=== PATIENT | female | born 2005 | race Caucasian/White ===

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

== ENCOUNTER 2024-01-12 09:26 | Emergency (ER) | payer OTHER, SELFPAY ==
--- NOTE | 2024-01-12 10:12 | ED.GENADULT ---
HPI - General Adult General Chief complaint: Unspecified Stated complaint: Blood in stool Time Seen by Provider: 01/12/24 10:12 Source: patient, RN notes reviewed and old records reviewed Mode of arrival: ambulatory Limitations: no limitations History of Present Illness HPI narrative: 18-year-old female with negative medical history to [facility] with complaint of blood in stool. Patient reports bilateral lower back pain yesterday. Patient reports that pain does not feel muscular, states that pain feels deeper. Patient treated pain with ibuprofen with some improvement. Patient reports mild nausea without vomiting. Patient able to tolerate fluids by mouth. last menstrual period December 15. Patient states she is on an IUD. Patient resting comfortably in exam room in no acute distress. Respirations even and nonlabored. Related Data Allergies Allergy/AdvReac Type Severity Reaction Status Date / Time amitriptyline Allergy Swelling Verified 12/28/23 13:33 of the Eye Review of Systems Review of Systems: All systems reviewed & are unremarkable except as noted in HPI and below Constitutional: Constitutional: Reports no additional constitutional complaints Eyes: Eyes: Reports no additional eye complaints ENT: Reports system reviewed and no additional complaints, except as documented Cardiovascular: Cardiovascular: Reports no additional cardiovascular complaints, Denies chest pain and Denies dyspnea Respiratory: Respiratory: Reports no additional respiratory complaints, Denies cough and Denies dyspnea Gastrointestinal: Gastrointestinal: Reports hematochezia ( Scant) and Reports nausea Genitourinary: Genitourinary: Reports flank pain Musculoskeletal: Musculoskeletal: Reports as per HPI and Reports back pain Neurologic: Reports system reviewed and no additional complaints, except as documented Psychiatric: Psychiatric: Reports no additional psychiatric complaints [facility] Past Medical History Medical History Abdominal pain Anxiety disorder Vaginal discharge Surgical History Surgical History No pertinent past surgical history Family History Family History Mother Depression Anxiety Sibling Depression Anxiety Sibling Anxiety Depression Asthma Grandparent Anxiety Depression Hypertension Other Attention deficit hyperactivity disorder Social History Social History Smoking status: Never smoker Alcohol intake: never Substance use: never Substance use type: does not use Do You Feel Safe in your Home?: Yes Lack of Transportation: No Lack of Food: Never True Current Housing: I Have Housing Concerned About Future Housing: No Difficulty Paying Gas/Electric Bills: No Difficulty Paying for Meds: No Currently Unemployed: No Education: High School Diploma/GED Difficulty w/ Childcare or Family Care: No Living arrangements: with family Additional living arrangements comments: foster parents Occupation/Education: student 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 There is no relevant family history pertinent to the patient complaint. Exam Const: General: cooperative, healthy appearing, comfortable, no acute distress, alert and well nourished Nutritional Appearance: well nourished Orientation/consciousness: patient oriented x3 Limitations: no limitations HENMT: Head: normal to inspection Ears: external ears normal Face/Nose/Sinus: Normal external nose present, Normal nares present, normal facial exam, No erythema and No edema Face and sinus: normal facial exam, no erythema and no edema Mouth: Yes Normal oral and palatal mucosa present Eyes: General: appearance normal, both eyes and all related structures Neck: Neck: normal visual inspection, full ROM and no meningeal signs Chest: Chest palpation & inspection: normal inspection of the chest Resp: Effort & Inspection: normal respiratory effort and able to speak in complete sentences Auscultation: clear to auscultation bilaterally Cardio: Jugular venous distension: no JVD Rate: regular rate Rhythm: regular rhythm : General: Yes CVA tenderness bilateral Back/Spine/Pelvis: Cervical Spine: cervical ROM normal Skin: General skin exam: normal color, no rashes or lesions noted and turgor normal Neuro: General: patient oriented x3, gait normal, moves all extremities and no meningeal signs Speech: normal speech Gait exam (Neuro): Normal gait present Extrem: General: normal to inspection, full ROM and capillary refill normal Psych: Appearance: grossly normal and well kempt Course Course Emergency Course: Some parts of this dictation were generated by voice recognition software and may contain typographical and/or grammatical inaccuracies. Level of Care: Express Care Visit Vital Signs Vital signs: Vital Signs Temperature 37.0 C 10/24/24 10:20 Pulse Rate 102 H 01/12/24 10:20 Respiratory Rate 20 01/12/24 10:20 Blood Pressure 122/80 01/12/24 10:20 Pulse Oximetry 100 01/12/24 10:20 Oxygen Delivery Room Air 01/12/24 10:20 Temperature 37.0 C 01/12/24 10:20 Pulse Rate 100 01/12/24 10:27 Respiratory Rate 20 01/12/24 10:20 Blood Pressure 120/80 01/12/24 10:27 Pulse Oximetry 100 01/12/24 10:20 Oxygen Delivery Room Air 01/12/24 10:20 reviewed Transfer Transfered to: [place] Transportation: Other ( private vehicle) Transfer rationale: higher level of care Accepting physician: Dr. Cooley Medical Decision Making [facility] Narrative Medical decision making narrative: 18-year-old female with negative medical history to [facility] with complaint of blood in stool. Patient reports bilateral lower back pain yesterday. Patient reports that pain does not feel muscular, states that pain feels deeper. Patient treated pain with ibuprofen with some improvement. Patient reports mild nausea without vomiting. Patient able to tolerate fluids by mouth. last menstrual period December 15. Patient states she is on an IUD. Patient resting comfortably in exam room in no acute distress. Respirations even and nonlabored. Patient is sitting comfortably in exam room nontoxic in appearance. Patient appropriate for transfer to [facility] Transfer instructions reviewed with patient, including strict orders to report directly to the emergency department. Report called to Dr. Cooley. Patient offered EMS transport. Patient declined and prefers private vehicle. Patient verbalized understanding. Some parts of this dictation were generated by voice recognition software and may contain typographical and/or grammatical inaccuracies. Differential Diagnosis Differential Diagnosis: flank pain, back pain, hematuria, nausea, urinary tract infection, kidney stone Vital Signs Vital Signs: Vital Signs Temperature 37.0 C 01/12/24 10:20 Pulse Rate 102 H 01/12/24 10:20 Respiratory Rate 20 01/12/24 10:20 Blood Pressure 122/80 01/12/24 10:20 Pulse Oximetry 100 01/12/24 10:20 Oxygen Delivery Room Air 01/12/24 10:20 Temperature 37.0 C 01/12/24 10:20 Pulse Rate 100 01/12/24 10:27 Respiratory Rate 20 01/12/24 10:20 Blood Pressure 120/80 01/12/24 10:27 Pulse Oximetry 100 01/12/24 10:20 Oxygen Delivery Room Air 01/12/24 10:20 Lab Data Labs: Lab Results 01/12/24 Range/Units 10:39 POC Urine Color Light/pale POC Urine Clarity Clear POC Urine pH 6.0 POC Ur Specif [place] 1.030 POC Urine Protein Negative (Negative) POC Ur Glucose (UA) Negative (Negative) POC Urine Ketones Negative (Negative) POC Urine Blood Trace (Negative) POC Urine Nitrite Negative (Negative) POC Urine Bilirubin Negative (Negative) POC Urine Urobilinogen 0.2 POC U Leukocyte Esteras Negative (Negative) Discharge Plan Discharge Clinical Impression: Bilateral flank pain, Nausea, Hematuria Patient Disposition: Acute Care Hospital Condition: Stable Prescriptions: No Action sertraline [Zoloft] 50 mg tablet 50 mg PO DAILY Qty: 30 0RF propranolol 10 mg tablet 10 mg PO QID PRN (Reason: anxiety) Qty: 60 0RF Rx Instructions: administer 30 to 60 minutes prior to anxiety-provoking situation Follow-up/Referrals: PHYSICIAN,SEC REPORTING CONSULTANT [Primary Care Provider] -
[2024-01-12 10:20] VITALS: BP 122/80; PULSE 102; RESP 20; TEMP 37; O2SAT 100
[2024-01-12 10:27] VITALS: BP 120/80; PULSE 100
--- NOTE | 2024-01-12 10:29 | PC.NURSE ---
supine 120/80-100 sitting 122/80-102 standing 127/80-111-
[2024-01-12 10:42] LABS: EDUAAPPEAR Clear; EDUABILI Negative (Negative); EDUABLOOD Trace (Negative); EDUACOLOR1 Light/Pale; EDUAGLUCOSE Negative (Negative); EDUAKETONE Negative (Negative); EDUALEUKO Negative (Negative); EDUANITRATE Negative (Negative); EDUAPROTEIN Negative (Negative); EDUAUROBILI 0.2
== END 2024-01-12 10:55 | disposition short-term general hospital (02) ==
PROVIDERS: Emergency Provider Nurse Practitioner Family
DX: R10.9 Unspecified abdominal pain (principal); R11.0 Nausea; R51.9 Headache, unspecified
CPT/HCPCS: 81003; 99212; G0463

== ENCOUNTER 2024-01-12 11:49 | Emergency (ER) | payer OTHER, SELFPAY ==
--- NOTE | ~2024-01-12 | CT_ITS ---
CT abdomen pelvis w con Ordering provider: Francine Reyes MD History: 18 years Female with . bilateral flank pain . Comparison: May 02, 2023 Technique: CT abdomen and pelvis with IV and without oral contrast. Automated exposure control and it erative reconstruction technique were employed. The dose-length product was 863.69 mGy-cm. 100 mL Omn ipaque 350 was given IV. Findings: VISUALIZED LOWER CHEST: Normal. UPPER ABDOMINAL ORGANS: Liver: Normal. Gallbladder: Normal. Spleen: Normal. Stomach/duodenum: Normal. Pancreas: Normal. Adrenals: Normal. Kidneys: Normal. PELVIC ORGANS: The bladder shows slightly thickened wall. IUD is seen in the uterus. BOWEL AND MESENTERY: Colon: No evidence of diverticulitis. Normal appendix. Small Bowel: Normal. No obstruction. Peritoneum/mesentery: No free air or free fluid. No mesenteric lymphadenopathy. Small mesenteric lymp h nodes. RETROPERITONEUM: Normal aorta. No retroperitoneal lymphadenopathy. MUSCULOSKELETAL: Superficial soft tissues: The superficial soft tissues are normal. Bones: Normal spine. IMPRESSION: 1. No evidence of appendicitis, diverticulitis or intestinal obstruction. No definite renal stones o r hydronephrotic changes seen. Reviewed, dictated and finalized at location A. IMPRESSION: 1. No evidence of appendicitis, diverticulitis or intestinal obstruction. No d efinite renal stones or hydronephrotic changes seen.
[2024-01-12 11:55] VITALS: BP 119/77; PULSE 95; RESP 15; TEMP 36.6; O2SAT 100
--- NOTE | 2024-01-12 12:19 | ED.FEMALEGU ---
HPI - Female Genitourinary General Chief complaint: Urogenital-Female Stated complaint: bilateral flank pain from urgent care Time Seen by Provider: 01/12/24 12:10 Source: patient Mode of arrival: ambulatory Limitations: no limitations History of Present Illness HPI Narrative: patient developed left flank pain yesterday, aching, worse with certain movement and position, she denies any fever, chills, nausea, vomiting, urinary symptoms, vaginal bleeding or discharge. Patient denies any recent new physical activities Related Data Allergies Allergy/AdvReac Type Severity Reaction Status Date / Time amitriptyline Allergy Swelling Verified 01/12/24 11:50 of the Eye Review of Systems Review of Systems: All systems reviewed & are unremarkable except as noted in HPI and below PMFSH Past Medical History Medical History Abdominal pain Anxiety disorder Vaginal discharge Surgical History Surgical History No pertinent past surgical history Family History Family History Mother Depression Anxiety Sibling Depression Anxiety Sibling Anxiety Depression Asthma Grandparent Anxiety Depression Hypertension Other Attention deficit hyperactivity disorder Social History Social History Smoking status: Never smoker Alcohol intake: never Substance use: never Substance use type: does not use Do You Feel Safe in your Home?: Yes Lack of Transportation: No Lack of Food: Never True Current Housing: I Have Housing Concerned About Future Housing: No Difficulty Paying Gas/Electric Bills: No Difficulty Paying for Meds: No Currently Unemployed: No Education: High School Diploma/GED Difficulty w/ Childcare or Family Care: No Living arrangements: with family Additional living arrangements comments: foster parents Occupation/Education: student 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 Gender identity (if verbalized by the patient): Female Sexual Orientation (if Verbalized by the Patient): Bisexual Agree to blood products: Yes Exam Narrative: General appearance: Well-developed, well-nourished Skin: Normal color Head: Normocephalic, nontraumatic Eyes: Clear conjunctiva ENT: Oropharynx normal, ears normal, nose normal Neck: Supple, nontender Chest and respiratory: Airway patent, no respiratory distress, no accessory muscle use Heart: Regular rate/rhythm Abdomen: Soft, mild tenderness left flank area, no bruises, no swelling or rash, no organomegaly, quiet bowel sounds Vascular: Normal peripheral pulses, normal capillary refill. Musculoskeletal: Normal range of motion, nontender back Neurologic: Alert and oriented ?3, UNDERWRITING ACCOUNT REPRESENTATIVE is normal as tested, no gross motor deficit Course Vital Signs Vital signs: Vital Signs Temperature 36.6 C 01/12/24 11:55 Pulse Rate 95 01/12/24 11:55 Respiratory Rate 15 01/12/24 11:55 Blood Pressure 119/77 01/12/24 11:55 Pulse Oximetry 100 01/12/24 11:55 Oxygen Delivery Room Air 01/12/24 11:55 Temperature 36.6 C 01/12/24 11:55 Pulse Rate 88 01/12/24 14:03 Respiratory Rate 18 01/12/24 14:03 Blood Pressure 119/71 01/12/24 14:03 Pulse Oximetry 100 01/12/24 14:03 Oxygen Delivery Room Air 01/12/24 11:55 MDM - Female Genitourinary MDM Narrative Medical decision making narrative: patient came to the ED with left flank pain, nontraumatic Vital signs are stable Physical examination showed mild to moderate tenderness left flank area without rash or bruises or swelling Differential diagnosis muscular pain, pyelonephritis, kidney stone, constipation, colitis, splenic infarction or kidney infarction Blood workup today showed no acute abnormalities Urinalysis showed no evidence of infection CT abdomen and pelvis with IV contrast showed no acute abnormalities. Muscle pain is my concern The pt was discharged to home.the pt,s condition upon discharge was fair,education was provided to the pt in reference to the final impression,discharge study results,treatment,prognosis and need for follow up . Differential Diagnosis Differential diagnosis: Likely other ( as above) Medical Records Attestation: I reviewed the patient's medical records. Lab Data Attestation: I reviewed the patient's lab results. 01/12/24 12:22 01/12/24 12:22 Labs: Lab Results 01/12/24 01/12/24 Range/Units 12:18 12:22 WBC 6.5 (4.5-10.0) K/mm3 RBC 4.62 (4.2-5.4) M/mm3 Hgb 13.7 (12.0-15.0) g/dL Hct 41.0 (37.0-47.0) % MCV 88.7 (80-100) fl MCH 29.7 (26-34) pg MCHC 33.4 (32-36) g/dl RDW 13.3 (11.5-14.5) % Plt Count 154 (150-375) k/mm3 MPV 10.4 (7.4-10.4) fl Immature Gran % (Auto) 0.3 (0-0.5) % Neut % (Auto) 63.8 (45.5-73.1) % Lymph % (Auto) 27.6 (18.3-44.2) % [place] % (Auto) 6.6 (2.6-8.5) % Eos % (Auto) 1.2 (0-4.4) % Baso % (Auto) 0.5 (0.2-1.2) % Lymph # (Auto) 1.80 (0.9-3.2) K/mm3 [place] # (Auto) 0.4 (0.1-0.6) K/mm3 Eos # (Auto) 0.1 (0-0.3) K/mm3 Baso # (Auto) 0.0 (0.0-0.1) K/mm3 Abs Immat Gran (auto) 0.02 (0.00-0.031) K/mm3 Absolute Neuts (auto) 4.2 (1.3-6.7) K/mm3 Absolute Nucleated RBC 0.000 (0.0-0.012) K/mm3 Nucleated RBC % 0.0 (0.0-0.2) % Sodium 138 (134-143) mmol/L Potassium 3.6 (3.4-5.0) mmol/L Chloride 105 (98-107) mmol/L Carbon Dioxide 25 (22-30) mmol/L Anion Gap 8 (4-12) mmol/L BUN 8 (8-21) mg/dL Creatinine 0.60 L (0.7-1.0) mg/dL Estim Creat Clear Calc 159 ml/min Estimated GFR > 60 (59 - ) Glucose 95 (65-110) mg/dL Calcium 9.0 (8.9-10.7) mg/dL Total Bilirubin 0.4 (0.2-1.3) mg/dL AST 24 (14-36) U/L ALT 24 (6-35) U/L Alkaline Phosphatase 80 (45-116) U/L Total Protein 7.0 (6.3-8.6) g/dL Albumin 4.2 (3.7-5.6) g/dL Urine Color Yellow (Yellow) Urine Appearance Clear (Clear) Urine pH 5.5 (5.0-9.0) Ur Specific [place] 1.020 (1.001-1.035) Urine Protein Negative (Negative) mg/dL Urine Glucose (UA) Negative (Negative) mg/dL Urine Ketones 1+ H (Negative) mg/dL Ur Blood (Man) Negative (Negative) Urine Nitrate Negative (Negative) Urine Bilirubin Negative (Negative) Urine Urobilinogen 0.2 (<2.0) mg/dL Leukocyte Esterase Rfl Negative (Negative) CHELSEY/UL POC Urine HCG, Qual Negative (Negative) Imaging Data Radiologist's impression: Impressions Abdomen/Pelvis CT 01/12/24 13:35 IMPRESSION: 1. No evidence of appendicitis, diverticulitis or intestinal obstruction. No definite renal stones or hydronephrotic changes seen. Critical Care Time Critical Care Time Critical Care Time: No Discharge Plan Discharge Clinical Impression: Acute left flank pain Patient Disposition: Home, Self-Care Condition: Stable Instructions: Flank Pain (ED) Additional Instructions: Return if symptoms are worsening , call your family physician for appointment, take Tylenol as as needed for aches and pain, continue home medications. Prescriptions: New naproxen [Naprosyn] 500 mg tablet 500 mg PO BID PRN (Reason: pain) Qty: 14 0RF No Action sertraline [Zoloft] 50 mg tablet 50 mg PO DAILY Qty: 30 0RF propranolol 10 mg tablet 10 mg PO QID PRN (Reason: anxiety) Qty: 60 0RF Rx Instructions: administer 30 to 60 minutes prior to anxiety-provoking situation Follow-up/Referrals: PHYSICIAN,FEED GRINDER [Non-Staff] - Pete Mcdaniel MD [Physician] - 01/16/24
[2024-01-12 12:23] LABS: BEDSIDEPREGUCG Negative (Negative)
[2024-01-12 12:29] LABS: Basophils Percent Auto 0.5 % (0.2-1.2); Eosinophils Absolute Auto 0.1 K/mm3 (0-0.3); Eosinophils Percent Auto 1.2 % (0-4.4); Hemoglobin 13.7 g/dL (12.0-15.0); Immature Granulocyte Absolute 0.02 K/mm3 (0.00-0.031); Immature Granulocyte Percent A 0.3 % (0-0.5); Lymphocytes Percent Auto 27.6 % (18.3-44.2); Mean Corpuscular HGB Conc 33.4 g/dl (32-36); Mean Corpuscular Hemoglobin 29.7 pg (26-34); Mean Corpuscular Volume 88.7 fl (80-100); Mean Platelet Volume 10.4 fl (7.4-10.4); Monocytes Absolute Auto 0.4 K/mm3 (0.1-0.6); Monocytes Percent Auto 6.6 % (2.6-8.5); Neutrophils Absolute Auto 4.2 K/mm3 (1.3-6.7); Neutrophils Percent Auto 63.8 % (45.5-73.1); Platelet Count Result 154 k/mm3 (150-375); Red Blood Count 4.62 M/mm3 (4.2-5.4); Red Cell Distribution Width 13.3 % (11.5-14.5); White Blood Count 6.5 K/mm3 (4.5-10.0)
[2024-01-12 12:30] LABS: Add Urine Microscopic? NO; Appearance Urine Clear (Clear); Bilirubin Urine Negative (Negative); Blood Urine Negative (Negative); Color Urine Yellow (Yellow); Glucose Urine UA Negative (Negative); Ketones Urine 1+ mg/dL (Negative); Leukocyte Esterase Ur Negative LEU/UL (Negative); Nitrate Urine Negative (Negative); Protein Urine Negative (Negative); Urobilinogen Urine 0.2 mg/dL (<2.0); pH Urine 5.5 (5.0-9.0)
[2024-01-12 12:39] LABS: Alanine Aminotransferase 24 U/L (6-35); Albumin Level 4.2 g/dL (3.7-5.6); Alkaline Phosphatase 80 U/L (45-116); Anion Gap 8 mmol/L (4-12); Aspartate Amino Transferase 24 U/L (14-36); Bilirubin,Total 0.4 mg/dL (0.2-1.3); Blood Urea Nitrogen 8 mg/dL (8-21); Carbon Dioxide 25 mmol/L (22-30); Chloride 105 mmol/L (98-107); Estimated CRCL calculation 159 ml/min; Estimated Glomerular Filt Rate > 60; Glucose 95 mg/dL (65-110); Potassium 3.6 mmol/L (3.4-5.0); Sodium 138 mmol/L (134-143)
[2024-01-12 14:03] VITALS: BP 119/71; PULSE 88; RESP 18; O2SAT 100
== END 2024-01-12 14:33 | disposition home or self-care (01) ==
PROVIDERS: Emergency Provider Emergency Medicine
DX: R10.9 Unspecified abdominal pain (principal); F41.9 Anxiety disorder, unspecified; Z79.899 Other long term (current) drug therapy
CPT/HCPCS: 36415; 74177; 80053; 81003; 81025; 85025; 99284; Q9967

== ENCOUNTER 2024-04-05 09:41 | Emergency (ER) | payer OTHER, SELFPAY ==
[2024-04-05 09:56] VITALS: BP 108/72; PULSE 84; RESP 16; TEMP 36.8; O2SAT 99
--- NOTE | 2024-04-05 10:04 | ED_ITS ---
HPI - Nausea/Vomiting/Diarrhea General Chief complaint: Nausea/Vomiting/Diarrhea Stated complaint: nausea/diarrhea Time Seen by Provider: 04/05/24 10:07 Source: patient, RN notes reviewed and old records reviewed Mode of arrival: ambulatory Limitations: no limitations History of Present Illness HPI Narrative: 18 year old female who presents to [facility] care with complaints of 3 days of nausea and vomiting and states that she has had episodes of diarrhea for one month. She states that she awake at 2 o'clock Tuesday morning with pain to her abdomen that has continued to be present intermittently since then to her right lower abdomen area. Patient reports that she has vomited X2 this morning and she has had 4 diarrhea stools, patient has noted McBurney point tenderness she describes as sharp.. Patient reports that she has not ate or drank anything today.Patient reports no burning or pain with urination, denies any flank pain on examination. MD elicited complaint: nausea, vomiting, diarrhea and abdominal pain (right lower abdominal pain) Onset (ago): day(s) (3 days nausea vomiting abdomen pain, intermittent diarrhea for 1 month with 4 loose stools today) Description of vomiting: watery Description of diarrhea: watery Associated nausea: Yes Associated abdominal pain: Yes Location of pain: RLQ Pain consistency: intermittent Severity: moderate Quality: sharp Treatment prior to arrival: immodium Related Data Home Medications ?Medication ?Instructions ?Recorded ?Confirmed ?Last Taken ?Type levonorgestrel 14 mcg/24 hr (up to 1 device intrauterine ONCE 03/06/24 03/06/24 Unknown History 3 yrs) 13.5 mg intrauterine device (Christal) Allergies Allergy/AdvReac Type Severity Reaction Status Date / Time amitriptyline Allergy Swelling Verified 04/05/24 13:22 of the Eye Review of Systems Review of Systems: CONSTITUTIONAL: Denies fever, chills, or sweats. EYES: Denies visual changes, redness, or discharge. ENT: Denies rhinorrhea, congestion, sore throat, or otalgia. CARDIOVASCULAR: Denies chest pain, palpitations, or edema. RESPIRATORY: Denies cough or dyspnea. GASTROINTESTINAL: Reports right lower abdominal pain, nausea, vomiting, and diarrhea. GENITOURINARY: Denies dysuria or hematuria. SKIN: Denies rash or itching. MUSCULOSKELETAL: Denies back pain, joint pain, or myalgia. NEUROLOGIC: Denies headache, numbness, or weakness. PSYCHIATRIC: positive for history of anxiety or depression. All systems reviewed & are unremarkable except as noted in HPI and below PMFSH Past Medical History Medical History Vaginal discharge Abdominal pain Anxiety disorder Surgical History Surgical History No pertinent past surgical history Family History Family History Mother Depression Anxiety Sibling Depression Anxiety Sibling Anxiety Depression Asthma Grandparent Anxiety Depression Hypertension Other Attention deficit hyperactivity disorder Social History Social History Smoking status: Never smoker Alcohol intake: never Substance use: never Substance use type: does not use Do You Feel Safe in your Home?: Yes Lack of Transportation: No Lack of Food: Never True Current Housing: I Have Housing Concerned About Future Housing: No Difficulty Paying Gas/Electric Bills: No Difficulty Paying for Meds: No Currently Unemployed: No Education: High School Diploma/GED Difficulty w/ Childcare or Family Care: No Living arrangements: with family Additional living arrangements comments: foster parents Gender identity (if verbalized by the patient): Female Sexual Orientation (if Verbalized by the Patient): Bisexual Agree to blood products: Yes Comments At time of signature, agree with nursing past medical, surgical, social and family history. There is no relevant family history pertinent to the presenting complaint Exam Narrative: GENERAL: Well-appearing, well-nourished, and in mild acute distress. HEAD: Normocephalic, atraumatic. EYES: PERRLA and EOMI. ENT: Nares clear, no rhinorrhea or epistaxis. Mucous membranes moist.TM's normal throat pink with no lesions or swelling NECK: Supple. no lymphadenopathy CHEST: Clear to auscultation. No respiratory distress.SAO2 99% on room air HEART: Regular rate and rhythm. No murmur heard. Normal peripheral pulses. ABDOMEN: Soft, palpable tenderness to right lower quadrant, positive for McBurney point tenderness, nondistended, normal active bowel sounds. EXTREMITIES: Normal range of motion. No edema. SKIN: Warm, dry, no rash. NEURO: No focal deficits. Alert and oriented x3. Course Course Emergency Course: Patient is aware of diagnosis, understands and agrees to treatment plan.? Anticipatory guidance given.? Patient agrees to follow-up as directed and is aware of reasons to seek care at the emergency department. Portions of this record may have been created with voice recognition software Level of Care: Express Care Visit Vital Signs Vital signs: Vital Signs Temperature 36.8 C 04/05/24 09:56 Pulse Rate 84 04/05/24 09:56 Respiratory Rate 16 04/05/24 09:56 Blood Pressure 108/72 04/05/24 09:56 Pulse Oximetry 99 04/05/24 09:56 Oxygen Delivery Room Air 04/05/24 09:56 Temperature 36.8 C 04/05/24 09:56 Pulse Rate 84 04/05/24 09:56 Respiratory Rate 16 04/05/24 09:56 Blood Pressure 108/72 04/05/24 09:56 Pulse Oximetry 99 04/05/24 09:56 Oxygen Delivery Room Air 04/05/24 09:56 Reviewed Transfer Transfered to: [place] Transportation: Other (Per private car to ED at [facility] ) Transfer rationale: nausea and vomiting with diarrhea and right lower quadrant abdominal pain Accepting physician: Dr Prince Transfer comments: To ED at [facility] MDM - Nausea/Vomiting/Diarrhea MDM Narrative Medical decision making narrative: 1021 Call placed to the ED at [facility] and condition update, PMH, and vital signs reviewed with Zhane SAVAGE with Dr Prince accepting physician for transfer Differential Diagnosis Differential diagnosis: Likely gastroenteritis, dehydration and other (nausea and vomiting and diarrhea, right lower abdomen pain, appendicitis, ovarian cyst or ovarian torsion) Medical Records Attestation: I reviewed the patient's medical records. Critical Care Time Critical Care Time Critical Care Time: No Discharge Plan Discharge Clinical Impression: Nausea, vomiting and diarrhea, Abdominal pain, right lower quadrant Condition: Stable Patient Language: Afghan Prescriptions: No Action propranolol 10 mg tablet 10 mg PO QID PRN (Reason: anxiety) Qty: 60 0RF Rx Instructions: administer 30 to 60 minutes prior to anxiety-provoking situation Christal 14 mcg/24 hr (3 yrs) 13.5 mg intrauterine device 1 device intrauterine ONCE Rx Instructions: as a single dose naproxen [Naprosyn] 500 mg tablet 500 mg PO BID PRN (Reason: pain) Qty: 14 0RF Follow-up/Referrals: PHYSICIAN,DIRECTOR DIGITAL ADVERTISING [Primary Care Provider] - Time of Disposition: 10:30 Quality [place] Coma Scale Eyes: Open Verbal: Oriented and Alert Motor: Follows Commands Robin Coma Total Score: 15
== END 2024-04-05 10:32 | disposition short-term general hospital (02) ==
PROVIDERS: Emergency Provider Registered Nurse
DX: K52.9 Noninfective gastroenteritis and colitis, unspecified (principal); F12.10 Cannabis abuse, uncomplicated; E86.0 Dehydration; R10.31 Right lower quadrant pain
CPT/HCPCS: 99212; G0463

== ENCOUNTER 2024-04-05 11:23 | Emergency (ER) | payer OTHER, SELFPAY ==
--- NOTE | ~2024-04-05 | XR_ITS ---
XR abdomen/kub 1V Ordering provider: Zhane López APRN History: . concern for constipation . Comparison: None. FINDINGS: BOWEL: Nonobstructive bowel gas pattern. ORGANOMEGALY: None. SIGNIFICANT PATHOLOGIC CALCIFICATIONS: None. OTHER: IUD is seen in the uterus. No free air is seen under the diaphragm. IMPRESSION: NO ACUTE ABDOMINAL FINDINGS. Reviewed, dictated and finalized at location A. INE OPERATOR
--- NOTE | ~2024-04-05 | US_ITS ---
US pelvic complete w TV Ordering provider: Zhane López APRN History: . concern for ovarian cyst . Comparison: None. Technique: Transabdominal and endovaginal ultrasound of the pelvis (Doppler ultrasound interrogation techniques used as needed for this exam.) FINDINGS: CERVIX: Normal. UTERUS: Measures 6.4x 2.3x 8.8 cm in length which is within normal limits and is anteverted. No myom etrial masses. ENDOMETRIUM: Normal in thickness measuring 5 mm. IUD is seen in the endometrial cavity. Prominent ves angelia is seen in the lower uterine segment measuring 2 cm. No endometrial masses, cysts or fluid. CUL DE SAC: No free fluid. RIGHT OVARY: Normal in size measuring 1.5x 1.1x 1.2 centimeter. Normal echotexture. Doppler vascular flow present. Cyst is seen measuring 0.8 x 0.6 x 0.6 cm. LEFT OVARY: Normal in size measuring 4.2x 1.4x 1.5 cm. Normal echotexture. Doppler vascular flow pres ent. ADNEXA: Normal. No mass. IMPRESSION: IUD is seen in the uterus. Prominent vessel is seen in the lower uterine segment. Small left ovarian cyst. Otherwise, normal pelvic ultrasound. Reviewed, dictated and finalized at location A. 3D ARTIST IMPRESSION: IUD is seen in the uterus. Prominent vessel is seen in the lower uterine segmen t. Small left ovarian cyst. Otherwise, normal pelvic ultrasound.
--- NOTE | ~2024-04-05 | CT_ITS ---
EXAMINATION: CT abdomen pelvis w con DATE: 04/05/2024 14:31 INDICATION: Diarrhea. Abdominal pain. TECHNIQUE: Computed tomography (CT) of the abdomen and pelvis was performed with 100 mL Omnipaque 350 intravenous contrast. Automated exposure control and iterative reconstruction technique were employe d. The dose-length product was 806.52 mGy-cm. COMPARISON: CT abdomen and pelvis 10/12/2023 FINDINGS: The visualized portions of the lung bases are clear without pneumonia or pleural effusion. The heart size is normal. No pericardial effusion. The liver, gallbladder, spleen, pancreas, adrenal glands, and kidneys are normal. There are no dilated loops of bowel. The appendix is normal. There is an intrauterine device in expected position. There are no pathologically enlarged lymph nodes. There is physiologic fluid in the pelvis. The bones are unremarkable. IMPRESSION: 1. No etiology for the patient's symptoms. Reviewed, dictated and finalized at location A. NDING SUPERVISOR
[2024-04-05 11:34] VITALS: BP 134/83; PULSE 94; RESP 15; TEMP 36.6; O2SAT 98
[2024-04-05 12:20] LABS: BEDSIDEPREGUCG Negative (Negative)
[2024-04-05 12:21] LABS: Basophils Percent Auto 0.3 % (0.2-1.2); Eosinophils Percent Auto 0.1 % (0-4.4); Hematocrit 41.4 % (37.0-47.0); Hemoglobin 13.8 g/dL (12.0-15.0); Immature Granulocyte Absolute 0.02 K/mm3 (0.00-0.031); Immature Granulocyte Percent A 0.3 % (0-0.5); Lymphocytes Absolute Auto 2.53 K/mm3 (0.9-3.2); Lymphocytes Percent Auto 32.9 % (18.3-44.2); Mean Corpuscular HGB Conc 33.3 g/dl (32-36); Mean Corpuscular Hemoglobin 29.7 pg (26-34); Mean Corpuscular Volume 89.2 fl (80-100); Mean Platelet Volume 10.5 fl (7.4-10.4); Monocytes Absolute Auto 0.3 K/mm3 (0.1-0.6); Monocytes Percent Auto 3.5 % (2.6-8.5); Neutrophils Absolute Auto 4.8 K/mm3 (1.3-6.7); Neutrophils Percent Auto 62.9 % (45.5-73.1); Platelet Count Result 166 k/mm3 (150-375); Red Blood Count 4.64 M/mm3 (4.2-5.4); Red Cell Distribution Width 12.6 % (11.5-14.5); White Blood Count 7.7 K/mm3 (4.5-10.0)
[2024-04-05 12:25] LABS: Add Urine Microscopic? YES; Appearance Urine Clear (Clear); Bacteria Urine None Seen /hpf; Bilirubin Urine Negative (Negative); Blood Urine Negative (Negative); Color Urine Yellow (Yellow); Glucose Urine UA Negative (Negative); Ketones Urine Negative (Negative); Leukocyte Esterase Ur Negative LEU/UL (Negative); Nitrate Urine Negative (Negative); Non Pathogenic Casts 0-2; Protein Urine Trace mg/dL (Negative); RBC Urine 0-2 /hpf (0-2); Specific Grav Ur 1.028 (1.001-1.035); Squamous Epithelial Cell Urine None Seen /hpf (Few); WBC Urine 0-5 /hpf (0-3)
[2024-04-05 12:36] LABS: Alanine Aminotransferase 18 U/L (6-35); Albumin Level 4.1 g/dL (3.7-5.6); Alkaline Phosphatase 90 U/L (45-116); Anion Gap 4 mmol/L (4-12); Aspartate Amino Transferase 19 U/L (14-36); Bilirubin,Total 0.6 mg/dL (0.2-1.3); Blood Urea Nitrogen 10 mg/dL (8-21); Calcium 8.8 mg/dL (8.9-10.7); Carbon Dioxide 28 mmol/L (22-30); Chloride 106 mmol/L (98-107); Estimated CRCL calculation 171 ml/min; Estimated Glomerular Filt Rate > 60; Glucose 90 mg/dL (65-110); Lipase 45 U/L (23-300); Potassium 3.7 mmol/L (3.4-5.0); Sodium 138 mmol/L (134-143)
--- NOTE | 2024-04-05 12:40 | ED_ITS ---
HPI - Nausea/Vomiting/Diarrhea General Chief complaint: Nausea/Vomiting/Diarrhea Stated complaint: n/v/d Time Seen by Provider: 04/05/24 11:29 History of Present Illness HPI Narrative: Patient is 18-year-old female presents to the ER with GI problems. She reports she has a multiple ER visits over the last couple of years for the same problem. Patient reports she has had diarrhea for 1 month. Approximately 3 days ago, on Tuesday evening, she reports she started experiencing sweats, nausea, chills, and dizziness, which have continued since then. Patient reports she has been taking Dramamine and Imodium, with minimal relief. She reports she had blood in her bowel movement on to say but has not had any more since then. Patient endorses significant right lower abdominal pain. She reports she has had multiple CT scans performed in all they show is constipation. Patient reports her last menstrual period started approximately 2 weeks ago but she is still spotting. She also endorses daily marijuana use. Patient denies chest pain, shortness of breath, back pain, urinary symptoms. She denies any recent antibiotics use. Patient endorses that she has an IUD. Related Data Home Medications ?Medication ?Instructions ?Recorded ?Confirmed ?Last Taken ?Type levonorgestrel 14 mcg/24 hr (up to 1 device intrauterine ONCE 03/06/24 03/06/24 Unknown History 3 yrs) 13.5 mg intrauterine device (Christal) Allergies Allergy/AdvReac Type Severity Reaction Status Date / Time amitriptyline Allergy Swelling Verified 04/05/24 13:22 of the Eye Review of Systems 2 Review of Systems: All systems reviewed & are unremarkable except as noted in HPI and below PMFSH Past Medical History Medical History Vaginal discharge Abdominal pain Anxiety disorder Surgical History Surgical History No pertinent past surgical history Family History Family History Mother Depression Anxiety Sibling Depression Anxiety Sibling Anxiety Depression Asthma Grandparent Anxiety Depression Hypertension Other Attention deficit hyperactivity disorder Social History Social History Smoking status: Never smoker Alcohol intake: never Substance use: never Substance use type: does not use Do You Feel Safe in your Home?: Yes Lack of Transportation: No Lack of Food: Never True Current Housing: I Have Housing Concerned About Future Housing: No Difficulty Paying Gas/Electric Bills: No Difficulty Paying for Meds: No Currently Unemployed: No Education: High School Diploma/GED Difficulty w/ Childcare or Family Care: No Living arrangements: with family Additional living arrangements comments: foster parents Gender identity (if verbalized by the patient): Female Sexual Orientation (if Verbalized by the Patient): Bisexual Agree to blood products: Yes Exam 2 Narrative: GENERAL: Well appearing, well-nourished, non-toxic, in no acute distress. HEAD: Normocephalic, atraumatic. NECK: Supple. No adenopathy, no masses. RESPIRATORY: Airway patent, respirations nonlabored. Clear to auscultation bilaterally, no rales, rhonchi, wheezing. CARDIOVASCULAR: Regular rate and rhythm without murmurs, rubs, or gallops. Peripheral pulses 2+ and equal bilaterally. ABDOMINAL: Soft, tender with palpation RLQ, nondistended, no hepatosplenomegaly. Normoactive BS. MUSCULOSKELETAL: Moves all extremities. Strength/ROM intact without gross deformities. SKIN: Warm, dry, normal color. No rashes. NEURO: A&O X3. Speech clear. Cranial nerves II-XII grossly intact. Steady gait. No ataxic movements. PSYCHIATRIC: Appropriate mood and affect. Normal interaction. Course Vital Signs Vital signs: Vital Signs Temperature 36.6 C 04/05/24 11:34 Pulse Rate 94 04/05/24 11:34 Respiratory Rate 15 04/05/24 11:34 Blood Pressure 134/83 04/05/24 11:34 Pulse Oximetry 98 04/05/24 11:34 Oxygen Delivery Room Air 04/05/24 11:34 Temperature 36.6 C 04/05/24 11:34 Pulse Rate 86 04/05/24 14:01 Respiratory Rate 16 04/05/24 14:01 Blood Pressure 114/66 04/05/24 14:01 Pulse Oximetry 100 04/05/24 14:01 Oxygen Delivery Room Air 04/05/24 11:34 MDM - Nausea/Vomiting/Diarrhea MDM Narrative Medical decision making narrative: Patient is 18-year-old female presents to the ER with GI problems. She reports she has a multiple ER visits over the last couple of years for the same problem. Patient reports she has had diarrhea for 1 month. Approximately 3 days ago, on Tuesday evening, she reports she started experiencing sweats, nausea, chills, and dizziness, which have continued since then. Patient reports she has been taking Dramamine and Imodium, with minimal relief. She reports she had blood in her bowel movement on to say but has not had any more since then. Patient endorses significant right lower abdominal pain. She reports she has had multiple CT scans performed in all they show is constipation. Patient reports her last menstrual period started approximately 2 weeks ago but she is still spotting. She also endorses daily marijuana use. Patient denies chest pain, shortness of breath, back pain, urinary symptoms. She denies any recent antibiotics use. Patient endorses that she has an IUD. Labs Ordered: CBC, CMP, lipase, UA, UDS, COVID/RSV/Flu, urine test Imaging Ordered: Abdominal x-ray, transvaginal ultrasound (since pt has had multiple CT scans in the past, will try to avoid CT scans by ordering other imaging first) Medications ordered: 1 L normal saline IV bolus, Zofran 4 mg IV Results: Patient KUB indicated NO ACUTE ABDOMINAL FINDINGS. Patient's pelvic ultrasound indicated IUD is seen in the uterus. Prominent vessel is seen in the lower uterine segment. Small left ovarian cyst. Otherwise, normal pelvic ultrasound. Patient's CT abdomen pelvis indicated no acute abnormalities. It stated the visualized portions of the lung bases are clear without pneumonia or pleural effusion. The heart size is normal. No pericardial effusion. The liver, gallbladder, spleen, pancreas, adrenal glands, and kidneys are normal. There are no dilated loops of bowel. The appendix is normal. There is an intrauterine device in expected position. There are no pathologically enlarged lymph nodes. There is physiologic fluid in the pelvis. The bones are unremarkable. 1415-results shared with patient. Patient given extensive education regarding marijuana use and cannabinoid hyperemesis. It was advised that pt still have an abdominal CT scan since her prior imaging (US and abdominal x-ray) was unremarkable. Diagnosis: Cannabinoid hyperemesis, abdominal pain with unknown cause, dehydration Consults: None necessary Patient Education/Shared MDM: Results shared with patient. She reports her pain and nausea have improved significantly with normal saline and Zofran administration. Patient offered a dose of Haldol, which she declined. Patient and her mother were given extensive education regarding cannabinoid hyperemesis. She was strongly advised to abstain from future cannabinoid use. Disposition/Plan: Patient will be discharged home with a prescription of Bentyl and Zofran. She is strongly advised to follow-up with her primary care provider soon as possible. Patient is in agreement with current treatment plan. All questions answered. Vital signs stable at time of discharge. Differential Diagnosis Differential diagnosis: Likely food poisoning, gastroenteritis, clostridium difficile infection and drug-induced nausea and vomiting Lab Data 04/05/24 12:14 04/05/24 12:14 Labs: Lab Results 04/05/24 04/05/24 04/05/24 Range/Units 12:14 12:16 13:24 WBC 7.7 (4.5-10.0) K/mm3 RBC 4.64 (4.2-5.4) M/mm3 Hgb 13.8 (12.0-15.0) g/dL Hct 41.4 (37.0-47.0) % MCV 89.2 (80-100) fl MCH 29.7 (26-34) pg MCHC 33.3 (32-36) g/dl RDW 12.6 (11.5-14.5) % Plt Count 166 (150-375) k/mm3 MPV 10.5 H (7.4-10.4) fl Immature Gran % (Auto) 0.3 (0-0.5) % Neut % (Auto) 62.9 (45.5-73.1) % Lymph % (Auto) 32.9 (18.3-44.2) % [place] % (Auto) 3.5 (2.6-8.5) % Eos % (Auto) 0.1 (0-4.4) % Baso % (Auto) 0.3 (0.2-1.2) % Lymph # (Auto) 2.53 (0.9-3.2) K/mm3 [place] # (Auto) 0.3 (0.1-0.6) K/mm3 Eos # (Auto) 0.0 (0-0.3) K/mm3 Baso # (Auto) 0.0 (0.0-0.1) K/mm3 Abs Immat Gran (auto) 0.02 (0.00-0.031) K/mm3 Absolute Neuts (auto) 4.8 (1.3-6.7) K/mm3 Absolute Nucleated RBC 0.000 (0.0-0.012) K/mm3 Nucleated RBC % 0.0 (0.0-0.2) % Sodium 138 (134-143) mmol/L Potassium 3.7 (3.4-5.0) mmol/L Chloride 106 (98-107) mmol/L Carbon Dioxide 28 (22-30) mmol/L Anion Gap 4 (4-12) mmol/L BUN 10 (8-21) mg/dL Creatinine 0.54 L (0.7-1.0) mg/dL Estim Creat Clear Calc 171 ml/min Estimated GFR > 60 (59 - ) Glucose 90 (65-110) mg/dL Calcium 8.8 L (8.9-10.7) mg/dL Total Bilirubin 0.6 (0.2-1.3) mg/dL AST 19 (14-36) U/L ALT 18 (6-35) U/L Alkaline Phosphatase 90 (45-116) U/L Total Protein 7.0 (6.3-8.6) g/dL Albumin 4.1 (3.7-5.6) g/dL Lipase 45 (23-300) U/L Urine Color Yellow (Yellow) Urine Appearance Clear (Clear) Urine pH 8.0 (5.0-9.0) Ur Specific [place] 1.028 (1.001-1.035) Urine Protein Trace (Negative) mg/dL Urine Glucose (UA) Negative (Negative) mg/dL Urine Ketones Negative (Negative) mg/dL Ur Blood (Man) Negative (Negative) Urine Nitrate Negative (Negative) Urine Bilirubin Negative (Negative) Urine Urobilinogen 1.0 (<2.0) mg/dL Leukocyte Esterase Rfl Negative (Negative) CHELSEY/UL Urine RBC 0-2 (0-2) /hpf Urine WBC 0-5 (0-3) /hpf Ur Squamous Epith Cells None seen (Few) /hpf Urine Bacteria None seen /hpf Urine Casts 0-2 POC Urine HCG, Qual Negative (Negative) Urine Test Negative Urine Opiates Screen Negative (Negative) Urine Methadone Screen Negative (Negative) Ur Barbiturates Screen Negative (Negative) Ur Phencyclidine Scrn Negative (Negative) Ur Amphetamine Screen Negative (Negative) U Benzodiazepines Scrn Negative (Negative) Urine Cocaine Screen Negative (Negative) U Cannabinoids Screen Positive A (Negative) Influenza A (RT-PCR) Negative (Negative) Influenza B (RT-PCR) Negative (Negative) RSV (RT-PCR) Negative (Negative) SARS-CoV-2 RNA (RT-PCR) Negative (Negative) Discharge Plan Discharge Clinical Impression: Gastroenteritis, Cannabis abuse, Dehydration, Abdominal pain, right lower quadrant Patient Disposition: Home, Self-Care Condition: Stable Instructions: Antibiotic Form, Dehydration (ED), Gastroenteritis (ED), Cannabis Use Disorder (ED) Additional Instructions: Please return to the ER with an worsening symptoms. Follow-up with primary care provider in the next 2-3 days. Take all medications as prescribed. Patient Language: Indonesian Prescriptions: New dicyclomine 10 mg capsule 10 mg PO TID Qty: 20 0RF ondansetron 4 mg tablet,disintegrating 4 mg PO Q8H Qty: 10 0RF No Action propranolol 10 mg tablet 10 mg PO QID PRN (Reason: anxiety) Qty: 60 0RF Rx Instructions: administer 30 to 60 minutes prior to anxiety-provoking situation Christal 14 mcg/24 hr (3 yrs) 13.5 mg intrauterine device 1 device intrauterine ONCE Rx Instructions: as a single dose naproxen [Naprosyn] 500 mg tablet 500 mg PO BID PRN (Reason: pain) Qty: 14 0RF Follow-up/Referrals: PHYSICIAN,TECHNICAL SOLUTIONS ENGINEER [Primary Care Provider] - Time of Disposition: 15:34
[2024-04-05 13:05] LABS: Pregnancy On Board Control Positive; Urine Pregnancy Test Negative
[2024-04-05] MEDS: SODIUM CHLORIDE 0.9% IV 1,000 ML 999 ML IV CONT (13:22)
[2024-04-05 13:23] VITALS: BP 120/73; PULSE 67; RESP 15; O2SAT 100
[2024-04-05 13:23] LABS: Benzodiazepines Screen Urine Negative (Negative)
[2024-04-05] MEDS: ONDANSETRON INJ 4 MG/2 ML VIAL IV PUSH (13:23)
[2024-04-05 13:24] LABS: Cannabinoid Screen Urine Positive (Negative); Cocaine Screen Urine Negative (Negative); Methadone Screen Urine Negative (Negative); Opiate Screen Urine Negative (Negative); Phencyclidine Screen Urine Negative (Negative)
[2024-04-05 13:26] LABS: Barbiturate Screen Urine Negative (Negative)
[2024-04-05 13:32] VITALS: BP 117/75; PULSE 80; RESP 14; O2SAT 100
[2024-04-05 13:33] VITALS: BP 117/75; PULSE 66; RESP 15; O2SAT 100
[2024-04-05 13:47] LABS: Amphetamine Screen Urine Negative (Negative)
[2024-04-05 14:01] VITALS: BP 114/66; PULSE 86; RESP 16; O2SAT 100
[2024-04-05 14:09] LABS: Influenza A QL RT-PCR Negative (Negative); Influenza B QL RT-PCR Negative (Negative); RSV RNA, RT-PCR Negative (Negative); SARS-CoV-2 RNA PCR Negative (Negative)
== END 2024-04-05 15:41 | disposition home or self-care (01) ==
PROVIDERS: Emergency Provider Registered Nurse
DX: K52.9 Noninfective gastroenteritis and colitis, unspecified (principal); E86.0 Dehydration; F12.10 Cannabis abuse, uncomplicated; Z20.822 Contact with and (suspected) exposure to COVID-19; Z97.5 Presence of (intrauterine) contraceptive device
CPT/HCPCS: 36415; 74018; 74177; 76830; 76856; 80053; 80307; 81001; 81025; 83690; 85025; 87637; 96361; 96374; 99284; J2405; J7030; Q9967

== ENCOUNTER 2024-05-14 08:55 | Outpatient (CLI) | payer OTHER, SELFPAY ==
--- OUTSIDE RECORDS SUMMARY | 2024-05-14 09:30 | XMS_ITS | Continuity of Care Document ---
Author Organization [facility] Address [address] [place] [address] [place] [address] Phone Care Team Providers Care Service Support Representative Name Role Phone Euceda OD, Maged Unavailable Unavailable Procedures Procedure Date Eye Exam, New Patient Refraction Eye Exam, New Patient Refraction Advance Directives Directive Yes / No Effective Date File Name No Information Encounters Encounter Description Practice Location Reason(s) For Visit Diagnoses Date Provider Providers Copied on Encounter [facility], [address] [place] [address] [address], [place], [place], [id number], tel:[phone] [facility] No Information [phone] 0 Euceda OD Maged. [address] , [address], [place], [place], [facility] [place], [place]. tel:[phone] [facility], [address] [place] [address] [address], [place], [place], [id number], tel:[phone] [facility] [place] No Information [address], [place], [place], [facility] [place], [place]. tel:[phone] Family History Family Member Type Diagnosis Age At Onset No Information Payers Payer name Insurance type Covered constitution party ID Authoriza tiblank(s) [facility] Commercial CI [id number] [facility] [id number] Medicaid [place] [id number] Social History Type Description Quantity Date Captured [...]
--- OUTSIDE RECORDS SUMMARY | 2024-05-14 09:30 | XMS_ITS | Clinical Summary ---
Author Organization [address] lto Address [address] [place] [address] Care Team Providers Care Primary Class Teacher Name Role Phone Dary Beltrán NP Primary Care Provider [phone] Allergies Active Allergy Reactions Criticality Noted Date Comments Amitriptyline Other (See comments) Low 05/27/2020 Per mother Medications albuterol HFA (PROVENTIL HFA,VENTOLIN HFA,PROAIR HFA) 90 mcg/actuation inhalerIndications: Upper respiratory tract infection, unspecified type Inhale 2 puffs every 6 (six) hours as needed for wheezing 3 each 4 4 11/25/19 25 Active ondansetron ODT (ZOFRAN-ODT) 4 mg disintegrating tabletIndications:N ausea Take 1 tablet (4 mg total) by mouth every 8 (eight) hours as needed for nausea 12 tablet 4 Active ondansetron (ZOFRAN) 4 mg tablet Take 1 tablet (4 mg total) by mouth every 6 (six) hours 12 tablet 5 Active dicyclomine (BENTYL) 20 mg tablet Take 1 tablet (20 mg total) by mouth 2 (two) times a day 20 tablet 5 04/16/19 26 Active Active Problems No known active problems Encounters Date Type Department Care Team Description 04/22/2024 3:34 PM RETIREMENT SPECIALIST - 04/22/2024 6:47 PM [facility] Emergency [facility] Emergency Department [address] [place] [address] Kunal Marks MD Ittiara, [place]ona Maierhofer, MD Anxiety (Primary Dx) Discharge Disposition: Discharge to home or self care 04/22/2024 3:14 PM RETIREMENT SPECIALIST - 04/22/2024 11:59 PM RETIREMENT SPECIALIST Hospital Encounter [facility] Emergency, Room R Discharge Disposition: Discharge to home or self care 04/22/2024 2:30 PM RETIREMENT SPECIALIST Office Visit [facility] [place] [address] [place] [address] Torrie Calles NP Chest pain, unspecified type (Primary Dx); Tachycardia 04/16/2024 8:13 PM RETIREMENT SPECIALIST - 04/17/2024 12:09 AM RETIREMENT SPECIALIST Emergency [facility] Emergency Department [address] [place] [address] Kunal Marks MD LUQ pain (Primary Dx) Discharge Disposition: Discharge to home or self care from Last 3 Months Social History Tobacco Use Types Packs/Day Years Used Date Smoking Tobacco: Never Smokeless Tobacco: Never Personal Safety Answer Date Recorded Have you ever been in or are you currently in a harmful physical or emotional relationship or is someone making you feel afraid or unsafe? Denies 04/22/2024 Comments No Sex and Gender Information Value Date Recorded Sex Assigned at Not on file Legal Sex Female 2:29 AM RETIREMENT SPECIALIST Gender Identity Not on file Sexual Orientation Not on file Obstetrics History Para Term AB IAB SAB Ectopic Multiple Livin g Live Births 0 0 0 0 0 0 0 0 0 0 0 Growth Chart Information Age Height Weight [id number]-[id number] th Percentile BMI Percentile Head Circum Head Circum Percentile Date 18 years 95.7 kg (211 lb) 2024 18 years 172.7 cm (5' 8 ) 95.7 kg (211 lb) 95.35%* 2024 18 years 172.7 cm (5' 8 ) 105.2 kg (232 lb) 97.10%* 2023 2 years 18.1 kg (40 lb) 2008 * CDC (Girls, 2-20 Years) Last Filed Vital Signs Vital Sign Reading Time Taken Comments Blood Pressure 115/70 04/22/2024 6:15 PM RETIREMENT SPECIALIST Pulse 83 04/22/2024 6:15 PM RETIREMENT SPECIALIST Temperature 36.3 C (97.4 F) 04/22/2024 4:27 PM RETIREMENT SPECIALIST Respiratory Rate 15 04/22/2024 6:15 PM RETIREMENT SPECIALIST Oxygen Saturation 96% 04/22/2024 6:15 PM RETIREMENT SPECIALIST Inhaled Oxygen Concentration - - Weight 95.7 kg (211 lb) 04/22/2024 3:44 PM RETIREMENT SPECIALIST Height 172.7 cm (5' 8 ) 04/16/2024 4:04 PM RETIREMENT SPECIALIST Body Mass Index 32.08 04/16/2024 4:04 PM RETIREMENT SPECIALIST Plan of Treatment Health Maintenance Due Date Last Done Comments Depression Screening 2004 Hepatitis C Screening 2004 HPV Vaccines (1 - 3-dose series) 10/01/2019 Meningococcal B Vaccine (1 of 2 - Standard) 2020 Regular Well Visit/Exam 18-64 2022 Influenza Vaccine (#1) 2023 12/03/2008, 2007 DTaP/Tdap/Td Vaccine (7 - Td or Tdap) 12/02/2025 12/03/2015, 10/09/2008, 04/05/2006, Additional history exists Hepatitis B Screening Completed 04/08/2005 , 02/01/2005, 2004, Additional history exists Pneumococcal vaccine <65 Completed 006, 04/08/2005, 02/01/2005, Additional history exists Varicella Vaccines Completed 10/10/2009, 10/01/2005 Meningococcal Vaccine Aged Out 12/03/2015 No gilmar kamran eligible based on patient's age to complete this topic Procedures Procedure Name Priority Date/Time Associated Diagnosis Comments XR CHEST 1 VIEW ED 04/22/2024 4:52 PM RETIREMENT SPECIALIST EGFR STAT 04/22/2024 4:38 PM RETIREMENT SPECIALIST URINALYSIS, MICROSCOPIC ONLY STAT 04/22/2024 4:38 PM RETIREMENT SPECIALIST DIFFERENTIAL AUTO STAT 04/22/2024 4:3 8 PM RETIREMENT SPECIALIST DRUGS OF ABUSE SCREEN, URINE WITHOUT CONFIRMATION STAT 04/22/2024 4:38 PM RETIREMENT SPECIALIST ETHANOL STAT 04/22/2024 4:38 PM RETIREMENT SPECIALIST HCG, BLOOD, QUANTITATIVE STAT 04/22/2024 4:38 PM RETIREMENT SPECIALIST TROPONIN T HIGH-SENSITIVITY STAT 04/22/2024 4:38 PM RETIREMENT SPECIALIST COMPREHENSIVE METABOLIC PANEL STAT 04/22/2024 4:38 PM RETIREMENT SPECIALIST CBC WITH AUTO DIFFERENTIAL STAT 04/22/2024 4:38 PM RETIREMENT SPECIALIST URINALYSIS AND REFLEX TO MICROSCOPIC AND CULTURE STAT 04/22/2024 4:38 PM RETIREMENT SPECIALIST TSH STAT 04/22/2024 4:34 PM RETIREMENT SPECIALIST ECG 12-LEAD STAT 04/22/2024 4:[address] ABDOMEN PELVIS W CONTRAST ED 04/16/2024 10:56 PM RETIREMENT SPECIALIST URINALYSIS AND REFLEX TO MICROSCOPIC AND CULTURE STAT 04/16/2024 5:38 PM RETIREMENT SPECIALIST POCT HCG, URINE Routine 04/16/2024 5:34 PM RETIREMENT SPECIALIST EGFR STAT 04/16/2024 4:26 PM RETIREMENT SPECIALIST DIFFERENTIAL AUTO STAT 04/16/2024 4:2 6 PM RETIREMENT SPECIALIST LIPASE STAT 04/16/2024 4:26 PM RETIREMENT SPECIALIST COMPREHENSIVE METABOLIC PANEL STAT 04/16/2024 4:26 PM RETIREMENT SPECIALIST CBC WITH AUTO DIFFERENTIAL STAT 04/16/2024 4:26 PM RETIREMENT SPECIALIST ECG 12-LEAD STAT 04/16/2024 4:22 PM RETIREMENT SPECIALIST from Last 3 Months Results * XR Chest 1 Vw Portable (04/22/2024 4:52 PM RETIREMENT SPECIALIST) Anatomical Region Laterality Modality Body, Chest N/A Computed Radiogr aphy 04/22/2024 4:54 PM RETIREMENT SPECIALIST Narrative 04/22/2024 4:54 PM RETIREMENT SPECIALIST EXAM DESCRIPTION: XR CHEST 1 VIEW REASON FOR STUDY: chest pain Patient to ED via [facility] EMS from [facility] for panic attack. EMS reports on their arrival patient was hyperventilating. On arrival to ED patient reports feeling anxious but is calm. Non-Smoker TECHNIQUE: Single radiographic view(s) of the chest. COMPARISON: None FINDINGS: LUNGS: No focal opacity, pleural effusion, or pneumothorax. HEART/MEDIASTINUM: Cardiac silhouette normal in size. Mediastinal and hilar contours appear normal. LINES/TUBES: None. BONES: No acute osseous abnormality. IMPRESSION: No acute cardiopulmonary abnormality. THIS IS AN ELECTRONICALLY VERIFIED FINAL REPORT 04/22/2024 4:54 PM - Electronically signed by Roque CAGLE: GURJIT Report ID: [id number] Reading Location: [id number] Procedure Note Roque Stiles MD - 04/22/2024 EXAM DESCRIPTION: XR CHEST 1 VIEW REASON FOR STUDY: chest pain Patient to ED via [facility] from [facility] for panic attack. EMS reports on their arrival patient was hyperventilating. On arrival to ED patient reports feeling anxious but is calm. Non-Smoker TECHNIQUE: Single radiographic view(s) of the chest. COMPARISON: None FINDINGS: LUNGS: No focal opacity, pleural effusion, or pneumothorax. HEART/MEDIASTINUM: Cardiac silhouette normal in size. Mediastinal andhilar contours appear normal. LINES/TUBES: None. BONES: No acute osseous abnormality. IMPRESSION: No acute cardiopulmonary abnormality. THIS IS AN ELECTRONICALLY VERIFIED FINAL REPORT 04/22/2024 4:54 PM - Electronically signed by Roque Stiles M.D. KH: GURJIT Report ID: [id number] Reading Location: [id number] Damaris Bernabe MD IMG XR PROCEDURES F inal Result * Troponin T high-sensitivity (04/22/2024 4:38 PM RETIREMENT SPECIALIST) Trop T hs <6 <=14 ng/L Comment: Interpretive Data For further hscTnT resources including the diagnostic algorithm and an aid in interpretation, copy and paste this link: https://nrl.testcatalog.org/show/hsTrop Current Interpretive Data last revised 2020. Blood 04/22/2024 4:38 PM RETIREMENT SPECIALIST 04/22/2024 4:49 PM RETIREMENT SPECIALIST Damaris Bernabe MD LAB BLOOD ORDERABLE S Final Result [facility] [address] [facility] Department of Laboratories [place], [place] [id number] * eGFR (04/22/2024 4:38 PM RETIREMENT SPECIALIST) eGFR >90 >=60 mL/min/1. 73 m2 Comment: Interpretive Data Reference Interval Normal >/= 90 mL/min/1.73m2 Mildly decreased* 60 - 89 mL/min/1.73m2 Mildly to moderately decreased 45 - 59 mL/min/1.73m2 Moderately to severely decreased 30 - 44 mL/min/1.73m2 Severely decreased 15 - 29 mL/min/1.73m2 Kidney Failure < 15 mL/min/1.73m2 *Relative to young adult level Estimated glomerular filtration rate is determined by the 2020 CKD-EPI equation recommended by the National Kidney Foundation (A Unifying Approach to GFR Estimation: Recommendations of the NKF-ASK Task Force on Reassessing the Inclusion of Race in Diagnosing Kidney Disease, JASN 2020). The CKD-EPI equation should not be used for patients with unstable renal function and has not been validated in children and those over 70. Current interpretive data was last reviewed 2021. Blood 04/22/2024 4:38 PM RETIREMENT SPECIALIST 04/22/2024 4:49 PM RETIREMENT SPECIALIST us Damaris Bernabe MD LAB BLOOD ORDERABLE S Final Result [facility] ([facility]) 1 [facility] Department [place] [address] * Differential, auto (04/22/2024 4:38 PM RETIREMENT SPECIALIST) Neutrophil abs 6.5 1.5 - 6.5 K/cumm Imm gran abs 0.0 0.0 - 0.1 K/cumm [facility] ([facility]) Lymphocyte abs 2.8 0.8 - 3.3 K/cumm [facility] ([facility]) Monocyte abs 0.4 0.2 - 0.8 K/cumm [facility] ([facility]) Eosinophil abs 0.1 0.0 - 0.5 K/cumm [facility] ([facility]) Basophil abs 0.0 0.0 - 0.1 K/cumm [facility] ([facility]) Neutrophil pct 65.3 % [facility] ([facility]) Comment: Interpretive Data Percent cell count reference ranges are not reported, since discordance with absolute values may lead to misinterpretation of CBC data. Current Interpretive Data was last revised on 2017. Imm gran pct 0.3 % [facility] ([facility]) Comment: Interpretive Data Percent cell count reference ranges are not reported, since discordance with absolute values may lead to misinterpretation of CBC data. Current Interpretive Data was last revised on 2017. Lymphocyte pct 28.4 % [facility] ([facility]) Comment: Interpretive Data Percent cell count reference ranges are not reported, since discordance with absolute values may lead to misinterpretation of CBC data. Current Interpretive Data was last revised on 2017. Monocyte pct 4.3 % [facility] ([facility]) Comment: Interpretive Data Percent cell count reference ranges are not reported, since discordance with absolute values may lead to misinterpretation of CBC data. Current Interpretive Data was last revised on 2017. Eosinophil pct 1.4 % [facility] ([facility]) Comment: Interpretive Data Percent cell count reference ranges are not reported, since discordance with absolute values may lead to misinterpretation of CBC data. Current Interpretive Data was last revised on 2017. Basophil pct 0.3 % [facility] ([facility]) Comment: Interpretive Data Percent cell count reference ranges are not reported, since discordance with absolute values may lead to misinterpretation of CBC data. Current Interpretive Data was last revised on 2017. Blood 04/22/2024 4:38 PM RETIREMENT SPECIALIST 04/22/2024 4:49 PM RETIREMENT SPECIALIST us Damaris Bernabe MD LAB BLOOD ORDERABLE S Final Result [facility] ([place]) 1 [facility] Department [place] [address] * (ABNORMAL) Urinalysis reflex to microscopic and culture Urine (04/22/2024 4:38 PM RETIREMENT SPECIALIST) Color, ur Yellow Yellow Clarity, ur Turbid(A) Clear [facility] ([facility]) Specific gravity, ur 1.009 1.003 - 1.030 [facility] ([facility]) pH, urine 8.0 [facility] ([facility]) Comment: Interpretive Data U rine pH is affected by diet, medications, systemic acid-base disturbances, and renal tubular function. pH may affect urinary stone formation. For example, urine pH below 6.0 may help reduce the tendency for calcium phosphate stones and pH greater than 6.0 may reduce the tendency for uric acid stone formation. Source: [facility] [employer] Current Interpretive Data was last revised on 2017 Protein, ur ql Negative Negative [facility] ([facility]) Glucose, ur ql Negative Negative [facility] ([facility]) Ketones, ur Trace Negative [facility] ([facility]) Bilirubin, ur Negative Negative [facility] ([facility]) Blood, ur Negative Negative [facility] ([place]) Urobilinogen, ur <2.0 <2.0 mg/dL [facility] ([facility]) Nitrite, ur Negative Negative [facility] ([facility]) Leukocyte esterase, ur 2+(A) Negative [facility] ([facility]) UA reflex comment Reflex to microscopic UA will be performed. [facility] ([facility]) Urine 04/22/2024 4:38 PM RETIREMENT SPECIALIST 04/22/2024 4:49 PM RETIREMENT SPECIALIST us Damaris Bernabe MD LAB MICROBIOLOGY - GENERAL ORDERABLES Final Result Performing Organization Address City/[facility]/ZIP Co de Phone Number [facility] ([facility]) 1 [facility] [employer] [place] [address] * CBC with auto differential (04/22/2024 4:38 PM RETIREMENT SPECIALIST) WBC 9.9 3.8 - 9.9 K/cumm Hgb 13.3 11.9 - 15.5 g/dL [facility] ([facility]) Hct 39.4 35.6 - 45.5 % [facility] ([facility]) Plt 204 150 - 400 K/cumm [facility] ([facility]) MPV 10.3 9.1 - 12.3 fL [facility] ([facility]) RBC 4.51 3.90 - 5.20 M/cumm [facility] ([facility]) MCV 87.4 81.3 - 96.4 fL [facility] ([facility]) MCH 29.5 27.1 - 33.3 pg [facility] ([place]) MCHC 33.8 32.3 - 35.7 g/dL [facility] ([place]) RDW CV 12.6 11.1 - 14.9 % [facility] ([place]) RDW SD 40.5 35.7 - 48.1 fL [facility] ([facility]) NRBC abs 0.00 0.00 - 0.01 K/cumm [facility] ([facility]) Blood 04/22/2024 4:3 8 PM RETIREMENT SPECIALIST 04/22/2024 4:49 PM RETIREMENT SPECIALIST us Damaris Bernabe MD LAB BLOOD ORDERABLE S Final Result [facility] ([facility]) 1 [facility] [employer] [place] [address] * (ABNORMAL) Drugs of Abuse Screen, Urine without Confirmation (04/22/2024 4:38 PM RETIREMENT SPECIALIST) [facility] Amphetamine, ur Not Detected CutOff 500ng/mL Comment: Interpretive Data - Amphetamines: Samples containing greater than 500 ng/mL d-methamphetamine or other cross-reacting amphetamine compounds are reported as positive. Amphetamine immunoassays are subject to significant false positive rates due to cross-reactivity of non-amphetamine drugs. Confirmatory testing required for definitive results. Current Interpretive Data was last reviewed 2022. Barbiturates, ur Not Detected CutOff 200ng/mL [facility] ([facility]) Comment: Interpretive Data - Barbiturates: Samples containing greater than 200 ng/mL secobarbital or other cross-reacting barbiturate compounds are reported as positive. False positive and false negative results are possible. Confirmatory testing required for definitive results. Current Interpretive Data was last reviewed 2022. Benzodiazepines, ur Not Detected CutOff 100ng/mL [facility] ([facility]) Comment: Interpretive Data - Benzodiazepines: Samples containing greater than 100 ng/mL nordiazepam or other cross-reacting compounds are reported as positive. False positive and false negative results are possible. Confirmatory testing required for definitive results. Current Interpretive Data was last reviewed 2022. Cannabinoids, ur Screen Positive, presumptive (A) CutOff 50 ng/mL [facility] ([facility]) Comment: Interpretive Data - Cannabinoids: Samples containing greater than 50 ng/mL delta-9 THC -COOH or other cross- reacting compounds are reported as positive. False positive and false negative results are possible. Confirmatory testing required for definitive results. Current Interpretive Data was last reviewed 2022. Cocaine, ur Not Detected CutOff 150ng/mL [facility] ([facility]) Comment: Interpretive Data - Cocaine: Samples containing greater than 150 ng/mL benzoylecgonine or other cross- reacting compounds are reported as positive. False positive and false negative results are possible. Confirmatory testing required for definitive results. Current Interpretive Data was last reviewed 2022. Fentanyl, Ur Not Detected CutOff 5 ng/mL [facility] ([facility]) Comment: Interpretive Data - Fentanyl: Samples containing greater than 5 ng/mL norfentanyl, fentanyl, or other cross-reacting fentanyl compounds are reported as positive. False positive and false negative results are possible. Confirmatory testing required for definitive results. Current Interpretive Data was last reviewed 2023. Methadone, ur Not Detected CutOff 300ng/mL [facility] ([facility]) Comment: Interpretive Data - Methadone: Samples containing greater than 300 ng/mL d,l-methadone or other cross-reacting compounds are reported as positive. False positive and false negative results are possible. Confirmatory testing required for definitive results. Current Interpretive Data was last reviewed 2022. Opiates, ur Not Detected CutOff 300ng/mL [facility] ([facility]) Comment: Interpretive Data - Opiates: Samples containing greater than 300 ng/mL morphine or other cross-reacting compounds are reported as positive. False positive and false negative results are possible. Confirmatory testing required for definitive results. Current Interpretive Data was last reviewed 2022. Oxycodone, ur Not Detected CutOff 100ng/mL [facility] ([facility]) Comment: Interpretive Data - Oxycodone: Samples containing greater than 100 ng/mL oxycodone or other cross-reacting compounds are reported as positive. False positive and false negative results are possible. Confirmatory testing required for definitive results. Current Interpretive Data was last reviewed 2022. Phencyclidine, ur Not Detected CutOff 25 ng/mL [facility] ([facility]) Comment: Interpretive Data - Phencyclidine: Samples containing greater than 25 ng/mL phencyclidine or other cross-reacting compounds are reported as positive. False positive and false negative results are possible. Confirmatory testing required for definitive results. Current Interpretive Data was last reviewed 2022. Urine Creatinine 49 mg/dL [facility] ([facility]UL[facility]) Comment: Interpretive Data Urine Creatinine: < 10 mg/dL is extremely dilute = or > 10 but < 20 mg/dL is dilute = or > 20 mg/dL is normal Current Interpretive Data was last revised on 2017. Urine 04/22/2024 4:38 PM RETIREMENT SPECIALIST 04/22/2024 4:49 PM RETIREMENT SPECIALIST Narrative [facility] ([facility]) - 04/22/2024 5:12 PM RETIREMENT SPECIALIST Drug of Abuse screening is performed by immunoassay for medical purposes only. This is not to be used for Pain Management purposes. Damaris Bernabe MD LAB URINE ORDERABLE S Final Result [facility] ([place]) 1 [facility] [place] [address] * (ABNORMAL) Urinalysis, microscopic only (04/22/2024 4:38 PM RETIREMENT SPECIALIST) WBC, ur 0-5 0 - 5 /HPF RBC, ur 0-2 0 - 2 /HPF [facility] ([place]) Epithelial cells, squamous, ur 11-20(A) 0 - 5 /HPF [facility] ([place]) Bacteria, ur 1+(A) [facility] ([place]) Mucous, ur Present(A) [facility] ([place]) Culture Reflex Comment Reflex conditions for urine culture (WBC >10) not met. [facility] ([place]) Urine 04/22/2024 4:38 PM RETIREMENT SPECIALIST 04/22/2024 4:49 PM RETIREMENT SPECIALIST Damaris Bernabe MD LAB URINE ORDERABLE S Final Result Performing Organization Address [facility]/ZIP Co de Phone Number [facility] ([place]) 1 [facility] [place] [address] * hCG, blood, quantitative (04/22/2024 4:38 PM RETIREMENT SPECIALIST) hCG, quant <5.0 0.0 - 5.0 IUnits/L Comment: Interpretive Data Male: < 5 IU/L Non- premenopausal Female: <5 IU/L The Trista hCG Beta Quant assay procedure was used. Results from different manufacturers or methods may not be comparable. Serial testing should be performed using the same method. Interpretive Data was last revised on 2023 Blood 04/22/2024 4:38 PM RETIREMENT SPECIALIST 04/22/2024 4:49 PM RETIREMENT SPECIALIST Damaris Bernabe MD LAB BLOOD ORDERABLE S Final Result [facility] ([place]) 1 [facility] Department [place] [address] * Ethanol (04/22/2024 4:38 PM RETIREMENT SPECIALIST) Ethanol <10 <=10 mg/dL Comment: Interpretive Data Legal limit of intoxication > or = 80 mg/dL Levels > or = 400 mg/dL are potentially TOXIC. Current interpretive data was last revised on 2018. Blood 04/22/2024 4:38 PM RETIREMENT SPECIALIST 04/22/2024 4:49 PM RETIREMENT SPECIALIST us Damaris Bernabe MD LAB BLOOD ORDERABLE S Final Result [facility] ([place]) 1 [facility] Department [place] [address] * (ABNORMAL) Comprehensive metabolic panel (04/22/2024 4:38 PM RETIREMENT SPECIALIST) Sodium 139 135 - 145 mmol/L Potassium, pl 3.3 3.3 - 4.9 mmol/L [facility] (JULIUS) Chloride 106 97 - 110 mmol/L [facility] (JUL[facility]) CO2 21(L) 22 - 32 mmol/L [facility] (JULIUS) Anion gap 12 2 - 15 mmol/L [facility] (JUL[facility]) BUN 7 6 - 25 mg/dL [facility] (JUL[facility]) Creatinine 0.63 0.60 - 1.10 mg/dL [facility] ([facility]UL[facility]) Glucose 99 70 - 199 mg/dL [facility] (JULIUS) Comment: Interpretive Data Fasting glucose >/= 126 mg/dl is diagnostic for diabetes. Fasting is defined as no caloric intake for at least 8 hours. Fasting glucose between 100 mg/dl to 125 mg/dl is diagnostic of prediabetes. In a patient with classic symptoms of hyperglycemia or hyperglycemic crisis, a random glucose >/= 200 mg/dl is diagnostic for diabetes. In the absence of unequivocal hyperglycemia, results should be confirmed by repeat testing. The classification and Diagnosis of Diabetes Diabetes Care 202; 46: S19-S40. Current interpretive data was last revised 2022. Calcium 9.4 8.5 - 10.3 mg/dL [facility] ([facility]) Bilirubin, total 0.3 0.1 - 1.2 mg/dL [facility] ([facility]) Protein, pl 6.7 6.5 - 8.5 g/dL [facility] ([facility]) Albumin 4.2 3.5 - 5.0 g/dL [facility] ([facility]) Alk phos 89 70 - 260 Units/L [facility] ([facility]) ALT 14 7 - 45 Units/L [facility] ([facility]) AST 16 10 - 45 Units/L [facility] ([facility]) Blood 04/22/2024 4:38 PM RETIREMENT SPECIALIST 04/22/2024 4:49 PM RETIREMENT SPECIALIST Damaris Bernabe MD LAB BLOOD ORDERABLE S Final Result [facility] ([place]) 1 [facility] [employer] [place] [address] * TSH (04/22/2024 4:34 PM RETIREMENT SPECIALIST) Thyroid Stimulating Hormone 1.18 0.30 - 4.20 mcIUnit/mL Blood 04/22/2024 4:34 PM RETIREMENT SPECIALIST 04/22/2024 5:06 PM RETIREMENT SPECIALIST Damaris Bernabe MD LAB BLOOD ORDERABLE S Final Result [facility] ([facility]) 1 [facility] [employer] [address] * ECG 12 lead (04/22/2024 4:26 PM RETIREMENT SPECIALIST) 04/22/2024 4:26 PM RETIREMENT SPECIALIST Narrative [facility] - 04/23/2024 6:28 AM RETIREMENT SPECIALIST Vent Rate: 78 bpm RR Interval: 764 msec [place] Interval: 156 msec QRS Duration: 95 msec QT Interval: 379 msec QTC Interval: 412 msec P-R-T [place]: 44 - 48 - 47 degrees IMPRESSION: SINUS RHYTHM WITH MARKED SINUS ARRHYTHMIA POSSIBLE LEFT ATRIAL ENLARGEMENT [-0.1mV P-WAVE IN V1/V2] INCOMPLETE RIGHT BUNDLE BRANCH BLOCK [90+ ms QRS DURATION, TERMINAL R IN V1/V2, 40+ ms S IN I/aVL/V4/V5/V6] BORDERLINE ECG Compared to prior EKG, heart rate has decreased Electronically Signed By: Jonatan Monte MD us Damaris Bernabe MD ECG ORDERABLES Fin al Result [facility] * CT Abdomen Pelvis W Contrast (04/16/2024 10:56 PM RETIREMENT SPECIALIST) Anatomical Region Laterality Modality Body N/A Computed Tomogra phy 04/16/2024 11:1 1 PM RETIREMENT SPECIALIST Narrative 04/16/2024 11:13 PM RETIREMENT SPECIALIST EXAM DESCRIPTION: CT ABDOMEN PELVIS W CONTRAST REASON FOR STUDY: Epigastric pain, luq pain Epigastric pain with nausea TECHNIQUE: CT scan of the abdomen and pelvis performed with intravenous and without oral contrast using helical scanning technique with dynamic intravenous contrast injection. Reconstructed coronal and sagittal MPR images reviewed. All images stored on PACS. Automated exposure control was used as a dose optimization technique for this examination. CONTRAST TYPE/DOSE: 100mL of IOVERSOL 350 MG IODINE/ML INTRAVENOUS SYRINGE injected via intravenous COMPARISON: None FINDINGS: LOWER CHEST: No significant pulmonary abnormalities. No effusion. LIVER: Normal size. No identified cystic or solid masses. GALLBLADDER: Unremarkable BILE DUCTS: No intrahepatic or extrahepatic ductal dilatation. SPLEEN: Normal size. No focal lesions. PANCREAS: No identified cystic or solid masses. No significant calcifications. No adjacent inflammation or peripancreatic fluid collections. Pancreatic duct not dilated. ADRENALS: Normal. KIDNEYS/URINARY TRACT: No identified significant cystic or solid masses. No visualized stones. No hydronephrosis or hydroureter. Symmetric enhancement. Urinary bladder is unremarkable. GI: No dilated bowel loops. No obvious wall thickening. Normal appendix. No significant diverticular disease. PERITONEUM: No ascites or free air. RETROPERITONEUM: No mass or adenopathy. REPRODUCTIVE: No significant abnormality. IUD is noted VASCULATURE: No abdominal aortic aneurysm. MUSCULOSKELETAL: No significant abnormality. OTHER: No other abnormality. IMPRESSION: No acute finding. THIS IS AN ELECTRONICALLY VERIFIED FINAL REPORT 04/16/2024 11:13 PM - Electronically signed by Roque CAGLE Report ID: [id number] Reading Location: [place] [address] Procedure Note Roque Stiles MD - 04/16/2024 EXAM DESCRIPTION: CT ABDOMEN PELVIS W CONTRAST REASON FOR STUDY: Epigastric pain, luq pain Epigastric pain with nausea TECHNIQUE: CT scan of the abdomen and pelvis performed with intravenousand without oral contrast using helical scanning technique with dynamic intravenous contrast injection. Reconstructed coronal and sagittal MPRimages reviewed. All images stored on PACS. Automated exposure control was usedas a dose optimization technique for this examination. CONTRAST TYPE/DOSE: 100mL of IOVERSOL 350 MG IODINE/ML INTRAVENOUSSYRINGE injected via intravenous COMPARISON: None FINDINGS: LOWER CHEST: No significant pulmonary abnormalities. No effusion. LIVER: Normal size. No identified cystic or solid masses. GALLBLADDER: Unremarkable BILE DUCTS: No intrahepatic or extrahepatic ductal dilatation. SPLEEN: Normal size. No focal lesions. PANCREAS: No identified cystic or solid masses. No significant calcifications. No adjacent inflammation or peripancreatic fluidcollections. Pancreatic duct not dilated. ADRENALS: Normal. KIDNEYS/URINARY TRACT: No identified significant cystic or solid masses.No visualized stones. No hydronephrosis or hydroureter. Symmetricenhancement. Urinary bladder is unremarkable. GI: No dilated bowel loops. No obvious wall thickening. Normalappendix. No significant diverticular disease. PERITONEUM: No ascites or free air. RETROPERITONEUM: No mass or adenopathy. REPRODUCTIVE: No significant abnormality. IUD is noted VASCULATURE: No abdominal aortic aneurysm. MUSCULOSKELETAL: No significant abnormality. OTHER: No other abnormality. IMPRESSION: No acute finding. THIS IS AN ELECTRONICALLY VERIFIED FINAL REPORT 04/16/2024 11:13 PM - Electronically signed by Roque CAGLE: GURJIT Report ID: [id number] Reading Location: [place] [address] Kunal Marks MD IMG CT PROCEDURES Final Result * (ABNORMAL) Urinalysis reflex to microscopic and culture Urine (04/16/2024 5:38 PM RETIREMENT SPECIALIST) Color, ur Yellow Yellow Clarity, ur Clear Clear [facility] ([place]) Specific gravity, ur 1.015 1.003 - 1.030 [facility] ([place]) pH, urine 8.0 [facility] ([place]) Comment: Interpretive Data U rine pH is affected by diet, medications, systemic acid-base disturbances, and renal tubular function. pH may affect urinary stone formation. For example, urine pH below 6.0 may help reduce the tendency for calcium phosphate stones and pH greater than 6.0 may reduce the tendency for uric acid stone formation. Source: [facility] 3sun Current Interpretive Data was last revised on 2017 Protein, ur ql Negative Negative [facility] ([place]) Glucose, ur ql Negative Negative [facility] ([place]) Ketones, ur 1+(A) Negative [facility] ([place]) Bilirubin, ur Negative Negative [facility] ([place]) Blood, ur Negative Negative [facility] ([place]) Urobilinogen, ur <2.0 <2.0 mg/dL [facility] ([place]) Nitrite, ur Negative Negative [facility] ([place]) Leukocyte esterase, ur Negative Negative [facility] ([place]) UA reflex comment Reflex conditions for microscopic UA and culture not met. [facility] ([place]) Urine 04/16/2024 5:38 PM RETIREMENT SPECIALIST 04/16/2024 5:52 PM RETIREMENT SPECIALIST us Paolo Cortez MD LAB MICROBIOLOGY - GENERAL O RDERABLES Final Result [facility] ([place]) 1 [facility] Department of Laboratories [place], [place] [id number] * POCT hCG, urine (04/16/2024 5:34 PM RETIREMENT SPECIALIST) HCG, ur, POC Negative Negative Lot Number [id number] QC Backgroud Clear Acceptable QC Control Line Acceptable Urine 04/16/2024 5:34 PM RETIREMENT SPECIALIST Paolo Cortez MD POINT OF CARE TEST ORDERABLE S Final Result * eGFR (04/16/2024 4:26 PM RETIREMENT SPECIALIST) eGFR >90 >=60 mL/min/1. 73 m2 Comment: Interpretive Data Reference Interval Normal >/= 90 mL/min/1.73m2 Mildly decreased* 60 - 89 mL/min/1.73m2 Mildly to moderately decreased 45 - 59 mL/min/1.73m2 Moderately to severely decreased 30 - 44 mL/min/1.73m2 Severely decreased 15 - 29 mL/min/1.73m2 Kidney Failure < 15 mL/min/1.73m2 *Relative to young adult level Estimated glomerular filtration rate is determined by the 2020 CKD-EPI equation recommended by the National Kid[employer] (A Unifying Approach to GFR Estimation: Recommendations of the NKF-ASK Task Force on Reassessing the Inclusion of Race in Diagnosing Kidney Disease, JASN 2020). The CKD-EPI equation should not be used for patients with unstable renal function and has not been validated in children and those over 70. Current interpretive data was last reviewed 2021. Blood 04/16/2024 4:26 PM RETIREMENT SPECIALIST 04/16/2024 4:30 PM RETIREMENT SPECIALIST Paolo Cortez MD LAB BLOOD ORDERABLES Final R esult [facility] ([place]) 1 [facility] Department of Laboratories [place], [place] [id number] * (ABNORMAL) Differential, auto (04/16/2024 4:26 PM RETIREMENT SPECIALIST) Neutrophil abs 9.5(H) 1.5 - 6.5 K/cumm Imm gran abs 0.0 0.0 - 0.1 K/cumm [facility] ([place]) Lymphocyte abs 2.5 0.8 - 3.3 K/cumm [facility] ([place]) Monocyte abs 0.5 0.2 - 0.8 K/cumm [facility] ([place]) Eosinophil abs 0.1 0.0 - 0.5 K/cumm [facility] ([place]) Basophil abs 0.0 0.0 - 0.1 K/cumm [facility] ([place]) Neutrophil pct 75.2 % [facility] ([place]) Comment: Interpretive Data Percent cell count reference ranges are not reported, since discordance with absolute values may lead to misinterpretation of CBC data. Current Interpretive Data was last revised on 2017. Imm gran pct 0.3 % [facility] ([place]) Comment: Interpretive Data Percent cell count reference ranges are not reported, since discordance with absolute values may lead to misinterpretation of CBC data. Current Interpretive Data was last revised on 2017. Lymphocyte pct 19.8 % [facility] ([place]) Comment: Interpretive Data Percent cell count reference ranges are not reported, since discordance with absolute values may lead to misinterpretation of CBC data. Current Interpretive Data was last revised on 2017. Monocyte pct 3.8 % [facility] ([place]) Comment: Interpretive Data Percent cell count reference ranges are not reported, since discordance with absolute values may lead to misinterpretation of CBC data. Current Interpretive Data was last revised on 2017. Eosinophil pct 0.6 % [facility] ([place]) Comment: Interpretive Data Percent cell count reference ranges are not reported, since discordance with absolute values may lead to misinterpretation of CBC data. Current Interpretive Data was last revised on 2017. Basophil pct 0.3 % [facility] ([place]) Comment: Interpretive Data Percent cell count reference ranges are not reported, since discordance with absolute values may lead to misinterpretation of CBC data. Current Interpretive Data was last revised on 2017. Blood 04/16/2024 4:26 PM RETIREMENT SPECIALIST 04/16/2024 4:30 PM RETIREMENT SPECIALIST us Paolo Cortez MD LAB BLOOD ORDERABLES Final R esult [facility] ([place]) 1 [facility] Department [place] [address] * (ABNORMAL) CBC with auto differential (04/16/2024 4:26 PM RETIREMENT SPECIALIST) WBC 12.6(H) 3.8 - 9.9 K/cumm Hgb 14.7 11.9 - 15.5 g/dL [facility] ([place]) Hct 43.6 35.6 - 45.5 % [facility] ([place]) Plt 169 150 - 400 K/cumm [facility] ([place]) MPV 10.4 9.1 - 12.3 fL [facility] ([place]) RBC 4.96 3.90 - 5.20 M/cumm [facility] ([place]) MCV 87.9 81.3 - 96.4 fL [facility] ([place]) MCH 29.6 27.1 - 33.3 pg [facility] ([place]) MCHC 33.7 32.3 - 35.7 g/dL [facility] ([place]) RDW CV 12.7 11.1 - 14.9 % [facility] ([place]) RDW SD 41.1 35.7 - 48.1 fL [facility] ([place]) NRBC abs 0.00 0.00 - 0.01 K/cumm [facility] ([place]) Blood (Blood, Venous) 04/16/2024 4:26 PM RETIREMENT SPECIALIST 04/16/2024 4:30 PM RETIREMENT SPECIALIST Paolo Cortez MD LAB BLOOD ORDERABLES Final R esult Performing Organization Address City/[facility] Co de Phone Number [facility] ([place]) 1 [facility] [employer] [place] [address] * Lipase (04/16/2024 4:26 PM RETIREMENT SPECIALIST) Lipase 20 10 - 99 Units/L Blood (Blood, Venous) 04/16/2024 4:26 PM RETIREMENT SPECIALIST 04/16/2024 4:30 PM RETIREMENT SPECIALIST Paolo Cortez MD LAB BLOOD ORDERABLES Final R esult [facility] ([place]) 1 [facility] [employer] [place] [address] * (ABNORMAL) Comprehensive metabolic panel (04/16/2024 4:26 PM RETIREMENT SPECIALIST) Sodium 139 135 - 145 mmol/L Potassium, pl 3.5 3.3 - 4.9 mmol/L [facility] ([place]) Chloride 104 97 - 110 mmol/L [facility] ([place]) CO2 25 22 - 32 mmol/L [facility] ([place]) Anion gap 10 2 - 15 mmol/L [facility] ([place]) BUN 7 6 - 25 mg/dL [facility] ([place]) Creatinine 0.57(L) 0.60 - 1.10 mg/dL [facility] ([place]) Glucose 97 70 - 199 mg/dL [facility] ([place]) Comment: Interpretive Data Fasting glucose >/= 126 mg/dl is diagnostic for diabetes. Fasting is defined as no caloric intake for at least 8 hours. Fasting glucose between 100 mg/dl to 125 mg/dl is diagnostic of prediabetes. In a patient with classic symptoms of hyperglycemia or hyperglycemic crisis, a random glucose >/= 200 mg/dl is diagnostic for diabetes. In the absence of unequivocal hyperglycemia, results should be confirmed by repeat testing. The classification and Diagnosis of Diabetes Diabetes Care 2021; 46: S19-S40. Current interpretive data was last revised 2022. Calcium 9.7 8.5 - 10.3 mg/dL [facility] ([place]) Bilirubin, total 0.4 0.1 - 1.2 mg/dL [facility] ([place]) Protein, pl 7.4 6.5 - 8.5 g/dL [facility] ([place]) Albumin 4.5 3.5 - 5.0 g/dL [facility] ([place]) Alk phos 100 70 - 260 Units/L [facility] ([place]) ALT 14 7 - 45 Units/L [facility] ([place]) AST 16 10 - 45 Units/L [facility] ([place]) Blood 04/16/2024 4:26 PM RETIREMENT SPECIALIST 04/16/2024 4:30 PM RETIREMENT SPECIALIST us Paolo Cortez MD LAB BLOOD ORDERABLES Final R esult [facility] ([place]) 1 [facility] Department [place] [address] * ECG 12 lead (04/16/2024 4:22 PM RETIREMENT SPECIALIST) 04/16/2024 4:22 PM RETIREMENT SPECIALIST Narrative [facility] - 04/16/2024 4:53 PM RETIREMENT SPECIALIST Vent Rate: 112 bpm RR Interval: 533 msec [place] Interval: 160 msec QRS Duration: 92 msec QT Interval: 321 msec QTC Interval: 387 msec P-R-T [place]: 58 - 65 - 60 degrees IMPRESSION: SINUS TACHYCARDIA INCOMPLETE RIGHT BUNDLE BRANCH BLOCK [90+ ms QRS DURATION, TERMINAL R IN V1/V2, 40+ ms S IN I/aVL/V4/V5/V6] ABNORMAL RHYTHM ECG Electronically Signed By: Jonatan Monte MD Paolo Cortez MD ECG ORDERABLES Final Result [facility] from Last [address] [employer] Care Teams Primary Class Teacher Relationship Specialty Start Date End Date Dary Beltrán NP [address] [address] PCP - General Family Medicine 04/16/24
--- OUTSIDE RECORDS SUMMARY | 2024-05-14 09:30 | XMS_ITS | Referral Summary ---
Author Organization [address] lt Address [address] [place] [address] Care Team Providers Care Adhesion Tester Name Role Phone Dary Beltrán NP Primary Care Provider [phone] Encounters Date Type Department Care Team Description 04/22/2024 3:14 PM HOSPITAL NURSING ASSISTANT - 04/22/2024 11:59 PM HOSPITAL NURSING ASSISTANT Hospital Encounter [facility] Emergency, Room R Discharge Disposition: Discharge to home or self care 04/22/2024 3:34 PM HOSPITAL NURSING ASSISTANT - 04/22/2024 6:47 PM HOSPITAL NURSING ASSISTANT Emergency [facility] Emergency Department [address] [place] [address] Kunal Marks MD Ittiara, Verona Maierhofer, MD Anxiety (Primary Dx) Discharge Disposition: Discharge to home or self care 04/22/2024 2:30 PM HOSPITAL NURSING ASSISTANT Office Visit [facility] Care at [place] [address] [facility] [place] [address] Torrie Calles NP Chest pain, unspecified type (Primary Dx); Tachycardia 04/16/2024 8:13 PM HOSPITAL NURSING ASSISTANT - 04/17/2024 12:09 AM [facility] Emergency [facility] Emergency Department [address] [place] [address] Kunal Marks MD LUQ pain (Primary Dx) Discharge Disposition: Discharge to home or self care from Last 3 Months Allergies Active Allergy Reactions Criticality Noted Date [...] Active Active Problems No known active problems Social History Tobacco Use Types Packs/Day Years [...] on file Legal Sex Female 2:29 AM HOSPITAL NURSING ASSISTANT Gender Identity Not on file Sexual Orientation Not on file Last Filed Vital Signs Vital Sign Reading Time Taken Comments Blood Pressure 115/70 04/22/2024 6:15 PM HOSPITAL NURSING ASSISTANT Pulse 83 04/22/2024 6:15 PM HOSPITAL NURSING ASSISTANT Temperature 36.3 C (97.4 F) 04/22/2024 4:27 PM HOSPITAL NURSING ASSISTANT Respiratory Rate 15 04/22/2024 6:15 PM HOSPITAL NURSING ASSISTANT Oxygen Saturation 96% 04/22/2024 6:15 PM HOSPITAL NURSING ASSISTANT Inhaled Oxygen Concentration - - Weight 95.7 kg (211 lb) 04/22/2024 3:44 PM HOSPITAL NURSING ASSISTANT Height 172.7 cm (5' 8 ) 04/16/2024 4:04 PM HOSPITAL NURSING ASSISTANT Body Mass Index 32.08 04/16/2024 4:04 PM HOSPITAL NURSING ASSISTANT Plan of Treatment Not on file Procedures Procedure Name Priority Date/Time Associated Diagnosis Comments XR CHEST 1 VIEW ED 04/22/2024 4:52 PM HOSPITAL NURSING ASSISTANT EGFR STAT 04/22/2024 4:38 PM HOSPITAL NURSING ASSISTANT URINALYSIS, MICROSCOPIC ONLY STAT 04/22/2024 4:38 PM HOSPITAL NURSING ASSISTANT DIFFERENTIAL AUTO STAT 04/22/2024 4:3 8 PM HOSPITAL NURSING ASSISTANT DRUGS OF ABUSE SCREEN, URINE WITHOUT CONFIRMATION STAT 04/22/2024 4:38 PM HOSPITAL NURSING ASSISTANT ETHANOL STAT 04/22/2024 4:38 PM HOSPITAL NURSING ASSISTANT HCG, BLOOD, QUANTITATIVE STAT 04/22/2024 4:38 PM HOSPITAL NURSING ASSISTANT TROPONIN T HIGH-SENSITIVITY STAT 04/22/2024 4:38 PM HOSPITAL NURSING ASSISTANT COMPREHENSIVE METABOLIC PANEL STAT 04/22/2024 4:38 PM HOSPITAL NURSING ASSISTANT CBC WITH AUTO DIFFERENTIAL STAT 04/22/2024 4:38 PM HOSPITAL NURSING ASSISTANT URINALYSIS AND REFLEX TO MICROSCOPIC AND CULTURE STAT 04/22/2024 4:38 PM HOSPITAL NURSING ASSISTANT TSH STAT 04/22/2024 4:34 PM HOSPITAL NURSING ASSISTANT ECG 12-LEAD STAT 04/22/2024 4:[address]URSING ASS[address] ABDOMEN PELVIS W CONTRAST ED 04/16/2024 10:56 PM HOSPITAL NURSING ASSISTANT URINALYSIS AND REFLEX TO MICROSCOPIC AND CULTURE STAT 04/16/2024 5:38 PM HOSPITAL NURSING ASSISTANT POCT HCG, URINE Routine 04/16/2024 5:34 PM HOSPITAL NURSING ASSISTANT EGFR STAT 04/16/2024 4:26 PM HOSPITAL NURSING ASSISTANT DIFFERENTIAL AUTO STAT 04/16/2024 4:2 6 PM HOSPITAL NURSING ASSISTANT LIPASE STAT 04/16/2024 4:26 PM HOSPITAL NURSING ASSISTANT COMPREHENSIVE METABOLIC PANEL STAT 04/16/2024 4:26 PM HOSPITAL NURSING ASSISTANT CBC WITH AUTO DIFFERENTIAL STAT 04/16/2024 4:26 PM HOSPITAL NURSING ASSISTANT ECG 12-LEAD STAT 04/16/2024 4:22 PM HOSPITAL NURSING ASSISTANT from Last 3 Months Results * XR Chest 1 Vw Portable (04/22/2024 4:52 PM HOSPITAL NURSING ASSISTANT) Anatomical Region Laterality Modality Body, Chest N/A Computed Radiogr aphy 04/22/2024 4:54 PM HOSPITAL NURSING ASSISTANT Narrative 04/22/2024 4:54 PM HOSPITAL NURSING ASSISTANT EXAM DESCRIPTION: XR CHEST 1 VIEW REASON FOR STUDY: chest pain Patient to ED via [facility] EMS from [facility] Care for panic attack. EMS reports on [...] Roque Stiles M.D. KH: GURJIT Report ID: [id number] Reading Location: [id number] Procedure Note Roque Stlies MD - 04/22/2024 EXAM DESCRIPTION: XR CHEST 1 VIEW REASON FOR STUDY: chest pain Patient to ED via [facility] EMS from [facility] Convenient Care for panic attack. EMS [...] Roque Stiles M.D. KH: GURJIT Report ID: [id number] Reading Location: [place] [address] Damaris Bernabe MD IMG XR PROCEDURES F inal Result * Troponin T high-sensitivity (04/22/2024 4:38 PM HOSPITAL NURSING ASSISTANT) Trop T hs <6 <=14 ng/L Comment: Interpretive Data For further hscTnT resources including the diagnostic algorithm and an aid in interpretation, copy and paste this link: https://nrl.testcatalog.org/show/hsTrop Current Interpretive Data last revised 2020. Blood 04/22/2024 4:38 PM HOSPITAL NURSING ASSISTANT 04/22/2024 4:49 PM HOSPITAL NURSING ASSISTANT Damaris Bernabe MD LAB BLOOD ORDERABLE S Final Result [facility] [place]) 0 [facility] Department of Laboratories [place], [place] [id number] * eGFR (04/22/2024 4:38 PM HOSPITAL NURSING ASSISTANT) eGFR >90 >=60 mL/min/1. 73 m2 Comment: [...] last reviewed 2021. Blood 04/22/2024 4:38 PM HOSPITAL NURSING ASSISTANT 04/22/2024 4:49 PM HOSPITAL NURSING ASSISTANT us Damaris Bernabe MD LAB BLOOD ORDERABLE S Final Result [facility] ([place]) 1 [facility] [place] [address] * Differential, auto (04/22/2024 4:38 PM HOSPITAL NURSING ASSISTANT) Neutrophil abs 6.5 1.5 - 6.5 K/cumm [...] revised on 2017. Basophil pct 0.3 % [facility] ([place]) Comment: Interpretive Data Percent cell count reference ranges are not reported, since discordance with absolute values may lead to misinterpretation of CBC data. Current Interpretive Data was last revised on 2017. Blood 04/22/2024 4:38 PM HOSPITAL NURSING ASSISTANT 04/22/2024 4:49 PM HOSPITAL NURSING ASSISTANT us Damaris Bernabe MD LAB BLOOD ORDERABLE S Final Result [facility]OO [facility] ([place]) 1 [facility] [place] [address] * (ABNORMAL) Urinalysis reflex to microscopic and culture Urine (04/22/2024 4:38 PM HOSPITAL NURSING ASSISTANT) Color, ur Yellow Yellow Clarity, ur Turbid(A) Clear [facility]OO [facility] ([place]) Specific gravity, ur 1.009 1.003 - 1.030 [facility]OO [facility] ([place]) pH, urine 8.0 [facility]OO [facility] ([place]) Comment: Interpretive Data U rine pH is affected by diet, medications, systemic acid-base disturbances, and renal tubular function. pH may affect urinary stone formation. For example, urine pH below 6.0 may help reduce the tendency for calcium phosphate stones and pH greater than 6.0 may reduce the tendency for uric acid stone formation. Source: [facility] PushPage Current Interpretive Data was last revised on [...] [facility] ([place]) Urine 04/22/2024 4:38 PM HOSPITAL NURSING ASSISTANT 04/22/2024 4:49 PM HOSPITAL NURSING ASSISTANT us Damaris Bernabe MD LAB MICROBIOLOGY - GENERAL ORDERABLES Final Result [facility] ([place] 1 [facility] [place] [address] * CBC with auto differential (04/22/2024 4:38 PM HOSPITAL NURSING ASSISTANT) WBC 9.9 3.8 - 9.9 K/cumm Hgb 13.3 11.9 - 15.5 g/dL [facility] ([place]) Hct 39.4 35.6 - 45.5 % [facility] ([place]) Plt 204 150 - 400 K/cumm [facility] ([place]) MPV 10.3 9.1 - 12.3 fL [facility] [...] NRBC abs 0.00 0.00 - 0.01 K/cumm [facility] ([place]) Blood 04/22/2024 4:38 PM HOSPITAL NURSING ASSISTANT 04/22/2024 4:49 PM HOSPITAL NURSING ASSISTANT us Damaris Bernabe MD LAB BLOOD ORDERABLE S Final Result [facility] ([place]) 1 [facility] [place] [address] * (ABNORMAL) Drugs of Abuse Screen, Urine without Confirmation (04/22/2024 4:38 PM HOSPITAL NURSING ASSISTANT) Pathologist [facility] [place] Amphetamine, ur Not Detected CutOff 500ng/mL Comment: [...] 2023. Methadone, ur Not Detected CutOff 300ng/mL [facility] ([place]) Comment: Interpretive Data - Methadone: Samples containing greater than 300 ng/mL d,l-methadone or other cross-reacting compounds are reported as positive. False positive and false negative results are possible. Confirmatory testing required for definitive results. Current Interpretive Data was last reviewed 2022. Opiates, ur Not Detected CutOff 300ng/mL [facility] ([place]) Comment: Interpretive Data - Opiates: Samples containing greater than 300 ng/mL morphine or other cross-reacting compounds are reported as positive. False positive and false negative results are possible. Confirmatory testing required for definitive results. Current Interpretive Data was last reviewed 2022. Oxycodone, ur Not Detected CutOff 100ng/mL [facility] ([place]) Comment: Interpretive Data - Oxycodone: Samples containing greater than 100 ng/mL oxycodone or other cross-reacting compounds are reported as positive. False positive and false negative results are possible. Confirmatory testing required for definitive results. Current Interpretive Data was last reviewed 2022. Phencyclidine, ur Not Detected CutOff 25 ng/mL [facility] ([place]) Comment: Interpretive Data - Phencyclidine: Samples containing greater than 25 ng/mL phencyclidine or other cross-reacting compounds are reported as positive. False positive and false negative results are possible. Confirmatory testing required for definitive results. Current Interpretive Data was last reviewed 2022. Urine Creatinine 49 mg/dL [facility] ([place]) Comment: Interpretive Data Urine Creatinine: < 10 mg/dL is extremely dilute = or > 10 but < 20 mg/dL is dilute = or > 20 mg/dL is normal Current Interpretive Data was last revised on 2017. Urine 04/22/2024 4:38 PM HOSPITAL NURSING ASSISTANT 04/22/2024 4:49 PM HOSPITAL NURSING ASSISTANT Narrative [facility] ([place]) - 04/22/2024 5:12 PM HOSPITAL NURSING ASSISTANT Drug of Abuse screening is performed by immunoassay for medical purposes only. This is not to be used for Pain Management purposes. Damaris Bernabe MD LAB URINE ORDERABLE S Final Result Performing Organization Address City/[facility]/ZIP Co de Phone Number WOO [facility] ([place]) 1 [facility] [place] [address] * (ABNORMAL) Urinalysis, microscopic only (04/22/2024 4:38 PM HOSPITAL NURSING ASSISTANT) WBC, ur 0-5 0 - 5 /HPF RBC, ur 0-2 0 - 2 /HPF [facility] Epithelial cells, squamous, ur 11-20(A) 0 - 5 /HPF [facility] ([facility]) Bacteria, ur 1+(A) [facility] Mucous, ur Present(A) [facility] A ([place]) Culture Reflex Comment Reflex conditions for urine culture (WBC >10) not met. [facility]OO [facility] ([place]) Urine 04/22/2024 4:38 PM HOSPITAL NURSING ASSISTANT 04/22/2024 4:49 PM HOSPITAL NURSING ASSISTANT Damaris Bernabe MD LAB URINE ORDERABLE S Final Result Performing Organization Address City/[facility]/ZIP Co de Phone Number WOO RONALDO ([place]) 1 [facility] [place] [address] * hCG, blood, quantitative (04/22/2024 4:38 PM HOSPITAL NURSING ASSISTANT) hCG, quant <5.0 0.0 - 5.0 IUnits/L Comment: Interpretive Data Male: < 5 IU/L Non- premenopausal Female: <5 IU/L The Trista hCG Beta Quant assay procedure was used. Results from different manufacturers or methods may not be comparable. Serial testing should be performed using the same method. Interpretive Data was last revised on 2023 Blood 04/22/2024 4:38 PM HOSPITAL NURSING ASSISTANT 04/22/2024 4:49 PM HOSPITAL NURSING ASSISTANT Damaris Bernabe MD LAB BLOOD ORDERABLE S Final Result Performing Organization Address City/[facility]/RUST Co de Phone Number WOO [facility] ([place]) [address] [place] [address] * Ethanol (04/22/2024 4:38 PM HOSPITAL NURSING ASSISTANT) Pathologist [facility] [place] Ethanol <10 <=10 mg/dL Comment: Interpretive Data Legal limit of intoxication > or = 80 mg/dL Levels > or = 400 mg/dL are potentially TOXIC. Current interpretive data was last revised on 2018. Blood 04/22/2024 4:38 PM HOSPITAL NURSING ASSISTANT 04/22/2024 4:49 PM HOSPITAL NURSING ASSISTANT Damaris Bernabe MD LAB BLOOD ORDERABLE S Final Result Performing Organization Address [facility] de Phone Number WOO [facility] ([place]) [address] [place] [address] * (ABNORMAL) Comprehensive metabolic panel (04/22/2024 4:38 PM HOSPITAL NURSING ASSISTANT) Sodium 139 135 - 145 mmol/L Potassium, pl 3.3 3.3 - 4.9 mmol/L [facility] ([place]) Chloride 106 97 - 110 mmol/L [facility] ([place]) CO2 21(L) 22 - 32 mmol/L [facility] ([place]) Anion gap 12 2 - 15 mmol/L [facility] ([place]) BUN 7 6 - 25 mg/dL [facility] ([place]) Creatinine 0.63 0.60 - 1.10 mg/dL [facility] ([place]) Glucose 99 70 - 199 mg/dL [facility] ([place]) Comment: Interpretive Data Fasting glucose [...] [facility] ([place]) Blood 04/22/2024 4:38 PM HOSPITAL NURSING ASSISTANT 04/22/2024 4:49 PM HOSPITAL NURSING ASSISTANT Damaris Bernabe MD LAB BLOOD ORDERABLE S Final Result Performing Organization Address City/[facility]/ZIP Co de Phone Number [facility] ([place]) 1 [facility] [place] [address] * TSH (04/22/2024 4:34 PM HOSPITAL NURSING ASSISTANT) Thyroid Stimulating Hormone 1.18 0.30 - 4.20 mcIUnit/mL Blood 04/22/2024 4:34 PM HOSPITAL NURSING ASSISTANT 04/22/2024 5:06 PM HOSPITAL NURSING ASSISTANT Damaris Bernabe MD LAB BLOOD ORDERABLE S Final Result Performing Organization Address City/[facility]/ZIP Co de Phone Number [facility] ([place]) 1 [facility] [place] [address] * ECG 12 lead (04/22/2024 4:26 PM HOSPITAL NURSING ASSISTANT) 04/22/2024 4:26 PM HOSPITAL NURSING ASSISTANT Narrative [facility] - 04/23/2024 6:28 AM HOSPITAL NURSING ASSISTANT Vent Rate: 78 bpm RR Interval: 764 msec [place] Interval: 156 msec QRS Duration: 95 msec QT Interval: 379 msec QTC Interval: 412 msec P-R-T [place]: 44 - 48 - 47 degrees IMPRESSION: [...] Bernabe MD ECG ORDERABLES Fin al Result [facility] light [place] * CT Abdomen Pelvis W Contrast (04/16/2024 10:56 PM HOSPITAL NURSING ASSISTANT) Anatomical Region Laterality Modality Body N/A Computed Tomogra phy 04/16/2024 11:1 1 PM HOSPITAL NURSING ASSISTANT Narrative 04/16/2024 11:13 PM HOSPITAL NURSING ASSISTANT EXAM DESCRIPTION: CT ABDOMEN PELVIS W CONTRAST [...] 11:13 PM - Electronically signed by Roque Stiles M.D. KH: GURJIT Report ID: [id number] Reading Location: [place] [address] Procedure Note Roque Stiles MD - 04/16/2024 [...] 11:13 PM - Electronically signed by Roque Stiles M.D. KH: GURJIT Report ID: [id number] Reading Location: [place] [address] Kunal Marks MD IMG CT PROCEDURES Final Result * (ABNORMAL) Urinalysis reflex to microscopic and culture Urine (04/16/2024 5:38 PM HOSPITAL NURSING ASSISTANT) Color, ur Yellow Yellow Clarity, ur Clear [...] tendency for uric acid stone formation. Source: [facility] [employer] Current Interpretive Data was last revised on 2017 Protein, ur ql Negative Negative [facility] ([place]) Glucose, ur ql Negative Negative [facility] ([place]) Ketones, ur 1+(A) Negative [facility] ([place]) Bilirubin, ur Negative Negative [facility] ([place]) Blood, ur Negative Negative [facility] ([place]) Urobilinogen, ur <2.0 <2.0 mg/dL [facility] ([place]) Nitrite, ur Negative Negative [facility] ([place]) Leukocyte esterase, ur Negative Negative [facility] ([place]) UA reflex comment Reflex conditions for microscopic UA and culture not met. [facility] ([place]) Urine 04/16/2024 5:38 PM HOSPITAL NURSING ASSISTANT 04/16/2024 5:52 PM HOSPITAL NURSING ASSISTANT Paolo Cortez MD LAB MICROBIOLOGY - GENERAL O RDERABLES Final Result [facility] ([place]) 1 [facility] [employer] [place] [address] * POCT hCG, urine (04/16/2024 5:34 PM HOSPITAL NURSING ASSISTANT) HCG, ur, POC Negative Negative Lot Number [id number] QC Backgroud Clear Acceptable QC Control Line Acceptable Urine 04/16/2024 5:34 PM HOSPITAL NURSING ASSISTANT Paolo Cortez MD POINT OF CARE TEST ORDERABLE S Final Result * eGFR (04/16/2024 4:26 PM HOSPITAL NURSING ASSISTANT) eGFR >90 >=60 mL/min/1. 73 m2 Comment: [...] last reviewed 2021. Blood 04/16/2024 4:26 PM HOSPITAL NURSING ASSISTANT 04/16/2024 4:30 PM HOSPITAL NURSING ASSISTANT Paolo Cortez MD LAB BLOOD ORDERABLES Final R esult [facility] ([place]) 1 [facility] [place] [address] * (ABNORMAL) Differential, auto (04/16/2024 4:26 PM HOSPITAL NURSING ASSISTANT) Neutrophil abs 9.5(H) 1.5 - 6.5 K/cumm Imm gran abs 0.0 0.0 - 0.1 K/cumm [facility] ([place]) Lymphocyte abs 2.5 0.8 - 3.3 K/cumm [facility] ([place]) Monocyte abs 0.5 0.2 - 0.8 K/cumm [facility] ([place]) [...] revised on 2017. Blood 04/16/2024 4:26 PM HOSPITAL NURSING ASSISTANT 04/16/2024 4:30 PM HOSPITAL NURSING ASSISTANT Paolo Cortez MD LAB BLOOD ORDERABLES Final R esult [facility] ([place]) 1 [facility] [place] [address] * (ABNORMAL) CBC with auto differential (04/16/2024 4:26 PM HOSPITAL NURSING ASSISTANT) WBC 12.6(H) 3.8 - 9.9 K/cumm Hgb [...] (JULIUS) Blood (Blood, Venous) 04/16/2024 4:26 PM HOSPITAL NURSING ASSISTANT 04/16/2024 4:30 PM HOSPITAL NURSING ASSISTANT Paolo Cortez MD LAB BLOOD ORDERABLES Final R esult [facility] ([place]) 1 [facility] [place] [address] * Lipase (04/16/2024 4:26 PM HOSPITAL NURSING ASSISTANT) Lipase 20 10 - 99 Units/L Blood (Blood, Venous) 04/16/2024 4:26 PM HOSPITAL NURSING ASSISTANT 04/16/2024 4:30 PM HOSPITAL NURSING ASSISTANT us Paolo Cortez MD LAB BLOOD ORDERABLES Final R esult [facility] ([place]) 1 [facility] [place] [address] * (ABNORMAL) Comprehensive metabolic panel (04/16/2024 4:26 PM HOSPITAL NURSING ASSISTANT) Sodium 139 135 - 145 mmol/L Potassium, [...] [facility] ([place]) Blood 04/16/2024 4:26 PM HOSPITAL NURSING ASSISTANT 04/16/2024 4:30 PM HOSPITAL NURSING ASSISTANT Paolo Cortez MD LAB BLOOD ORDERABLES Final R esult Performing Organization Address City/[facility]/[place] Co de Phone Number [facility] ([place]) 1 [facility] [place] [address] * ECG 12 lead (04/16/2024 4:22 PM HOSPITAL NURSING ASSISTANT) 04/16/2024 4:22 PM HOSPITAL NURSING ASSISTANT Narrative [facility] - 04/16/2024 4:53 PM HOSPITAL NURSING ASSISTANT Vent Rate: 112 bpm RR Interval: 533 msec [place] Interval: 160 msec QRS Duration: 92 msec QT Interval: 321 msec QTC Interval: 387 msec P-R-T [place]: 58 - 65 - 60 degrees IMPRESSION: SINUS TACHYCARDIA INCOMPLETE RIGHT BUNDLE BRANCH BLOCK [90+ ms QRS DURATION, TERMINAL R IN V1/V2, 40+ ms S IN I/aVL/V4/V5/V6] ABNORMAL RHYTHM ECG Electronically Signed By: Jonatan Monte MD Paolo Cortez MD ECG ORDERABLES Final Result Performing Organization Address City/[facility]/[place] Co de Phone Number [facility] light [facility] from Last 3 Months Insurance [facility] Care Teams Adhesion Tester Relationship Specialty Start Date End Date Dary Beltrán NP [address] [address] PCP - General Family Medicine 04/16/24
== END 2024-05-14 08:56 | disposition home or self-care (01) ==
PROVIDERS: PCP Nurse Practitioner Family; Visit Provider Nurse Practitioner Family
DX: R00.2 Palpitations (principal); R42 Dizziness and giddiness
CPT/HCPCS: 93242

== ENCOUNTER 2024-06-10 13:08 | Emergency (ER) | payer OTHER, SELFPAY ==
--- OUTSIDE RECORDS SUMMARY | 2024-06-10 13:10 | XMS_ITS | Clinical Summary ---
Author Organization [address] lto Address [address] [place] [address] Care Team Providers Care Water Resource Consultant Name Role Phone Dary Beltrán NP Primary Care Provider [phone] Allergies Active Allergy Reactions Criticality Noted Date [...] Department Care Team Description 04/22/2024 3:34 PM CONSULTING SOLUTION DIRECTOR - 04/22/2024 6:47 PM [facility] Emergency [facility] Emergency Department [address] [place] [address] Kunal Marks MD Ittiara, Verona Maierhofer, MD Anxiety (Primary Dx) Discharge Disposition: Discharge to home or self care 04/22/2024 3:14 PM CONSULTING SOLUTION DIRECTOR - 04/22/2024 11:59 PM CONSULTING SOLUTION DIRECTOR Hospital Encounter [facility] Emergency, Room R Discharge Disposition: Discharge to home or self care 04/22/2024 2:30 PM CONSULTING SOLUTION DIRECTOR Office Visit [facility] [address] [place] [address] Torrie Calles NP Chest pain, unspecified type (Primary Dx); Tachycardia 04/16/2024 8:13 PM CONSULTING SOLUTION DIRECTOR - 04/17/2024 12:09 AM CONSULTING SOLUTION DIRECTOR Emergency [facility] Emergency Department [address] [place] [address] Kunal Marks MD LUQ pain (Primary Dx) [...] on file Legal Sex Female 2:29 AM CONSULTING SOLUTION DIRECTOR Gender Identity Not on file Sexual Orientation Not on file Obstetrics History Para Term AB IAB SAB Ectopic Multiple Livin g Live Births 0 0 0 0 0 0 0 0 0 0 0 Growth Chart Information Age Height Weight Avnfmr-gmw-fxzy th Percentile BMI Percentile Head Circum Head [...] Comments Blood Pressure 115/70 04/22/2024 6:15 PM CONSULTING SOLUTION DIRECTOR Pulse 83 04/22/2024 6:15 PM CONSULTING SOLUTION DIRECTOR Temperature 36.3 C (97.4 F) 04/22/2024 4:27 PM CONSULTING SOLUTION DIRECTOR Respiratory Rate 15 04/22/2024 6:15 PM CONSULTING SOLUTION DIRECTOR Oxygen Saturation 96% 04/22/2024 6:15 PM CONSULTING SOLUTION DIRECTOR Inhaled Oxygen Concentration - - Weight 95.7 kg (211 lb) 04/22/2024 3:44 PM CONSULTING SOLUTION DIRECTOR Height 172.7 cm (5' 8 ) 04/16/2024 4:04 PM CONSULTING SOLUTION DIRECTOR Body Mass Index 32.08 04/16/2024 4:04 PM CONSULTING SOLUTION DIRECTOR Plan of Treatment Health Maintenance Due Date [...] CHEST 1 VIEW ED 04/22/2024 4:52 PM CONSULTING SOLUTION DIRECTOR EGFR STAT 04/22/2024 4:38 PM CONSULTING SOLUTION DIRECTOR URINALYSIS, MICROSCOPIC ONLY STAT 04/22/2024 4:38 PM CONSULTING SOLUTION DIRECTOR DIFFERENTIAL AUTO STAT 04/22/2024 4:3 8 PM CONSULTING SOLUTION DIRECTOR DRUGS OF ABUSE SCREEN, URINE WITHOUT CONFIRMATION STAT 04/22/2024 4:38 PM CONSULTING SOLUTION DIRECTOR ETHANOL STAT 04/22/2024 4:38 PM CONSULTING SOLUTION DIRECTOR HCG, BLOOD, QUANTITATIVE STAT 04/22/2024 4:38 PM CONSULTING SOLUTION DIRECTOR TROPONIN T HIGH-SENSITIVITY STAT 04/22/2024 4:38 PM CONSULTING SOLUTION DIRECTOR COMPREHENSIVE METABOLIC PANEL STAT 04/22/2024 4:38 PM CONSULTING SOLUTION DIRECTOR CBC WITH AUTO DIFFERENTIAL STAT 04/22/2024 4:38 PM CONSULTING SOLUTION DIRECTOR URINALYSIS AND REFLEX TO MICROSCOPIC AND CULTURE STAT 04/22/2024 4:38 PM CONSULTING SOLUTION DIRECTOR TSH STAT 04/22/2024 4:34 PM CONSULTING SOLUTION DIRECTOR ECG 12-LEAD STAT 04/22/2024 4:26 PM CONSULTING SOLUTION DIRECTOR CT ABDOMEN PELVIS W CONTRAST ED 04/16/2024 10:56 PM CONSULTING SOLUTION DIRECTOR URINALYSIS AND REFLEX TO MICROSCOPIC AND CULTURE STAT 04/16/2024 5:38 PM CONSULTING SOLUTION DIRECTOR POCT HCG, URINE Routine 04/16/2024 5:34 PM CONSULTING SOLUTION DIRECTOR EGFR STAT 04/16/2024 4:26 PM CONSULTING SOLUTION DIRECTOR DIFFERENTIAL AUTO STAT 04/16/2024 4:2 6 PM CONSULTING SOLUTION DIRECTOR LIPASE STAT 04/16/2024 4:26 PM CONSULTING SOLUTION DIRECTOR COMPREHENSIVE METABOLIC PANEL STAT 04/16/2024 4:26 PM CONSULTING SOLUTION DIRECTOR CBC WITH AUTO DIFFERENTIAL STAT 04/16/2024 4:26 PM CONSULTING SOLUTION DIRECTOR ECG 12-LEAD STAT 04/16/2024 4:22 PM CONSULTING SOLUTION DIRECTOR from Last 3 Months Results * XR Chest 1 Vw Portable (04/22/2024 4:52 PM CONSULTING SOLUTION DIRECTOR) Anatomical Region Laterality Modality Body, Chest N/A Computed Radiogr aphy 04/22/2024 4:54 PM CONSULTING SOLUTION DIRECTOR Narrative 04/22/2024 4:54 PM CONSULTING SOLUTION DIRECTOR EXAM DESCRIPTION: XR CHEST 1 VIEW REASON FOR STUDY: chest pain Patient to ED via [facility] from [facility] for panic attack. EMS reports [...] PM - Electronically signed by Roque CAGLE: [email or web address] Report ID: [id number] Reading Location: [id number] Procedure Note Roque Stiles MD - 04/22/2024 EXAM DESCRIPTION: XR CHEST 1 VIEW REASON FOR STUDY: chest pain Patient to ED via [facility] from [facility] for panic attack. EMS reports [...] 4:54 PM - Electronically signed by Roque Stilse M.D. KH: [id number] Report ID: [id number] Reading Location: [id number] Damaris Bernabe MD IMG XR PROCEDURES F inal Result * Troponin T high-sensitivity (04/22/2024 4:38 PM CONSULTING SOLUTION DIRECTOR) Trop T hs <6 <=14 ng/L Comment: Interpretive Data For further hscTnT resources including the diagnostic algorithm and an aid in interpretation, copy and paste this link: https://nrl.testcatalog.org/show/hsTrop Current Interpretive Data last revised 2020. Blood 04/22/2024 4:38 PM CONSULTING SOLUTION DIRECTOR 04/22/2024 4:49 PM CONSULTING SOLUTION DIRECTOR Damaris Bernabe MD LAB BLOOD ORDERABLE S Final Result [facility] [address] [facility] Department of Laboratories [place], [place] [id number] * eGFR (04/22/2024 4:38 PM CONSULTING SOLUTION DIRECTOR) eGFR >90 >=60 mL/min/1. 73 m2 Comment: [...] last reviewed 2021. Blood 04/22/2024 4:38 PM CONSULTING SOLUTION DIRECTOR 04/22/2024 4:49 PM CONSULTING SOLUTION DIRECTOR us Damaris Bernabe MD LAB BLOOD ORDERABLE S Final Result [facility] ([facility]) [address] [facility] [place] [address] * Differential, auto (04/22/2024 4:38 PM CONSULTING SOLUTION DIRECTOR) Neutrophil abs 6.5 1.5 - 6.5 K/cumm [...] revised on 2017. Blood 04/22/2024 4:38 PM CONSULTING SOLUTION DIRECTOR 04/22/2024 4:49 PM CONSULTING SOLUTION DIRECTOR us Damaris Bernabe MD LAB BLOOD ORDERABLE S Final Result [facility] ([place]) [address] [facility] [place] [address] * (ABNORMAL) Urinalysis reflex to microscopic and culture Urine (04/22/2024 4:38 PM CONSULTING SOLUTION DIRECTOR) Color, ur Yellow Yellow Clarity, ur Turbid(A) [...] tendency for uric acid stone formation. Source: [facility] Current Interpretive Data was last revised on [...] [facility] ([facility]) Urine 04/22/2024 4:38 PM CONSULTING SOLUTION DIRECTOR 04/22/2024 4:49 PM CONSULTING SOLUTION DIRECTOR us Damaris Bernabe MD LAB MICROBIOLOGY - GENERAL ORDERABLES Final Result Performing Organization Address City/[facility]/ZIP Co de Phone Number [facility] ([facility]) [address] [facility] [place] [address] * CBC with auto differential (04/22/2024 4:38 PM CONSULTING SOLUTION DIRECTOR) WBC 9.9 3.8 - 9.9 K/cumm Hgb [...] 0.01 K/cumm [facility] ([facility]) Blood 04/22/2024 4:38 PM CONSULTING SOLUTION DIRECTOR 04/22/2024 4:49 PM CONSULTING SOLUTION DIRECTOR us Damaris Benrabe MD LAB BLOOD ORDERABLE S Final Result [facility] ([place]) 1 [facility] [place] [address] * (ABNORMAL) Drugs of Abuse Screen, Urine without Confirmation (04/22/2024 4:38 PM CONSULTING SOLUTION DIRECTOR) [facility] Amphetamine, ur Not Detected CutOff 500ng/mL Comment: [...] revised on 2017. Urine 04/22/2024 4:38 PM CONSULTING SOLUTION DIRECTOR 04/22/2024 4:49 PM CONSULTING SOLUTION DIRECTOR Narrative [facility] ([place]) - 04/22/2024 5:12 PM CONSULTING SOLUTION DIRECTOR Drug of Abuse screening is performed by immunoassay for medical purposes only. This is not to be used for Pain Management purposes. Damaris Bernabe MD LAB URINE ORDERABLE S Final Result [facility] ([place]) 1 [facility] [place] [address] * (ABNORMAL) Urinalysis, microscopic only (04/22/2024 4:38 PM CONSULTING SOLUTION DIRECTOR) WBC, ur 0-5 0 - 5 /HPF RBC, ur 0-2 0 - 2 /HPF [facility] ([place]) Epithelial cells, squamous, ur 11-20(A) 0 - 5 /HPF [facility] ([place]) Bacteria, ur 1+(A) [facility] ([place]) Mucous, ur Present(A) [facility] ([place]) Culture Reflex Comment Reflex conditions for urine culture (WBC >10) not met. [facility] ([place]) Urine 04/22/2024 4:38 PM CONSULTING SOLUTION DIRECTOR 04/22/2024 4:49 PM CONSULTING SOLUTION DIRECTOR Damaris Bernabe MD LAB URINE ORDERABLE S Final Result Performing Organization Address City/[facility]/ZIP Co de Phone Number [facility] ([place]) 1 [facility] [place] [address] * hCG, blood, quantitative (04/22/2024 4:38 PM CONSULTING SOLUTION DIRECTOR) hCG, quant <5.0 0.0 - 5.0 IUnits/L Comment: Interpretive Data Male: < 5 IU/L Non- premenopausal Female: <5 IU/L The Trista hCG Beta Quant assay procedure was used. Results from different manufacturers or methods may not be comparable. Serial testing should be performed using the same method. Interpretive Data was last revised on 2023 Blood 04/22/2024 4:38 PM CONSULTING SOLUTION DIRECTOR 04/22/2024 4:49 PM CONSULTING SOLUTION DIRECTOR Damaris Bernabe MD LAB BLOOD ORDERABLE S Final Result [facility] ([place]) [address] [facility] [place] [address] * Ethanol (04/22/2024 4:38 PM CONSULTING SOLUTION DIRECTOR) Ethanol <10 <=10 mg/dL Comment: Interpretive Data Legal limit of intoxication > or = 80 mg/dL Levels > or = 400 mg/dL are potentially TOXIC. Current interpretive data was last revised on 2018. Blood 04/22/2024 4:38 PM CONSULTING SOLUTION DIRECTOR 04/22/2024 4:49 PM CONSULTING SOLUTION DIRECTOR us Damaris Bernabe MD LAB BLOOD ORDERABLE S Final Result [facility] ([place]) [address] [facility] [place] [address] * (ABNORMAL) Comprehensive metabolic panel (04/22/2024 4:38 PM CONSULTING SOLUTION DIRECTOR) Pathologist [facility] Sodium 139 135 - 145 mmol/L Potassium, pl 3.3 3.3 - 4.9 mmol/L [facility] ([place]) Chloride 106 97 - 110 mmol/L [facility] ([place]) CO2 21(L) 22 - 32 mmol/L [facility] ([place]) Anion gap 12 2 - 15 mmol/L [facility] ([place]) BUN 7 6 - 25 mg/dL [facility] ([place]) Creatinine 0.63 0.60 - 1.10 mg/dL [facility] ([place]) Glucose 99 70 - 199 mg/dL [facility] ([place]) Comment: Interpretive Data Fasting glucose [...] [facility] ([facility]) Blood 04/22/2024 4:38 PM CONSULTING SOLUTION DIRECTOR 04/22/2024 4:49 PM CONSULTING SOLUTION DIRECTOR Damaris Bernabe MD LAB BLOOD ORDERABLE S Final Result [facility] ([place]) 1 [facility] [place] [address] * TSH (04/22/2024 4:34 PM CONSULTING SOLUTION DIRECTOR) Thyroid Stimulating Hormone 1.18 0.30 - 4.20 mcIUnit/mL Blood 04/22/2024 4:34 PM CONSULTING SOLUTION DIRECTOR 04/22/2024 5:06 PM CONSULTING SOLUTION DIRECTOR Damaris Bernabe MD LAB BLOOD ORDERABLE S Final Result [facility] ([place]) [address] [facility] [place] [address] * ECG 12 lead (04/22/2024 4:26 PM CONSULTING SOLUTION DIRECTOR) 04/22/2024 4:26 PM CONSULTING SOLUTION DIRECTOR Narrative [facility] - 04/23/2024 6:28 AM CONSULTING SOLUTION DIRECTOR Vent Rate: 78 bpm RR Interval: 764 msec [place] Interval: 156 msec QRS Duration: 95 msec QT Interval: 379 msec QTC Interval: 412 msec P-R-T [place]: 44 - 48 - 47 degrees IMPRESSION: [...] Bernabe MD ECG ORDERABLES Fin al Result [employer] [facility] * CT Abdomen Pelvis W Contrast (04/16/2024 10:56 PM CONSULTING SOLUTION DIRECTOR) Anatomical Region Laterality Modality Body N/A Computed Tomogra phy 04/16/2024 11:1 1 PM CONSULTING SOLUTION DIRECTOR Narrative 04/16/2024 11:13 PM CONSULTING SOLUTION DIRECTOR EXAM DESCRIPTION: CT ABDOMEN PELVIS W CONTRAST [...] Electronically signed by Roque CAGLE Report ID: [id number] Reading Location: [place] [address] Procedure Note Roque Stiles MD - 04/16/2024 [...] signed by Roque CAGLE: GURJIT Report ID: [id number] Reading Location: [place] [address] Kunal Marks MD IMG CT PROCEDURES Final Result * (ABNORMAL) Urinalysis reflex to microscopic and culture Urine (04/16/2024 5:38 PM CONSULTING SOLUTION DIRECTOR) Color, ur Yellow Yellow Clarity, ur Clear [...] tendency for uric acid stone formation. Source: [facility] Current Interpretive Data was last revised on [...] [facility] ([facility]) Urine 04/16/2024 5:38 PM CONSULTING SOLUTION DIRECTOR 04/16/2024 5:52 PM CONSULTING SOLUTION DIRECTOR Paolo Cortez MD LAB MICROBIOLOGY - GENERAL O RDERABLES Final Result [facility] ([place]) [address] [facility] Department of Laboratories [place], [place] [id number] * POCT hCG, urine (04/16/2024 5:34 PM CONSULTING SOLUTION DIRECTOR) HCG, ur, POC Negative Negative Lot Number [id number] QC Backgroud Clear Acceptable QC Control Line Acceptable Urine 04/16/2024 5:34 PM CONSULTING SOLUTION DIRECTOR Paolo Cortez MD POINT OF CARE TEST ORDERABLE S Final Result * eGFR (04/16/2024 4:26 PM CONSULTING SOLUTION DIRECTOR) eGFR >90 >=60 mL/min/1. 73 m2 Comment: [...] last reviewed 2021. Blood 04/16/2024 4:26 PM CONSULTING SOLUTION DIRECTOR 04/16/2024 4:30 PM CONSULTING SOLUTION DIRECTOR Paolo Cortez MD LAB BLOOD ORDERABLES Final R esult [facility] ([place]) [address] [facility] Department of Laboratories [place], [place] [id number] * (ABNORMAL) Differential, auto (04/16/2024 4:26 PM CONSULTING SOLUTION DIRECTOR) Neutrophil abs 9.5(H) 1.5 - 6.5 K/cumm Imm gran abs 0.0 0.0 - 0.1 K/cumm [facility] ([place]) Lymphocyte abs 2.5 0.8 - 3.3 K/cumm [facility] ([place]) Monocyte abs 0.5 0.2 - 0.8 K/cumm [facility] ([place]) Eosinophil abs 0.1 0.0 - 0.5 K/cumm [...] revised on 2017. Blood 04/16/2024 4:26 PM CONSULTING SOLUTION DIRECTOR 04/16/2024 4:30 PM CONSULTING SOLUTION DIRECTOR us Paolo Cortez MD LAB BLOOD ORDERABLES Final R esult [facility] ([place]) [address] [facility] [place] [address] * (ABNORMAL) CBC with auto differential (04/16/2024 4:26 PM CONSULTING SOLUTION DIRECTOR) WBC 12.6(H) 3.8 - 9.9 K/cumm Hgb [...] - 0.01 K/cumm [facility] ([facility]) Blood Venous blood specimen / Unknown 04/16/2024 4:26 PM CONSULTING SOLUTION DIRECTOR 04/16/2024 4:30 PM CONSULTING SOLUTION DIRECTOR Paolo Cortez MD LAB BLOOD ORDERABLES Final R esult [facility] ([place]) [address] [facility] [place] [address] * Lipase (04/16/2024 4:26 PM CONSULTING SOLUTION DIRECTOR) Lipase 20 10 - 99 Units/L Blood Venous blood specimen / Unknown 04/16/2024 4:26 PM CONSULTING SOLUTION DIRECTOR 04/16/2024 4:30 PM CONSULTING SOLUTION DIRECTOR Paolo Cortez MD LAB BLOOD ORDERABLES Final R esult [facility] ([place]) [address] [facility] [place] [address] * (ABNORMAL) Comprehensive metabolic panel (04/16/2024 4:26 PM CONSULTING SOLUTION DIRECTOR) Sodium 139 135 - 145 mmol/L Potassium, [...] [facility] ([facility]) Blood 04/16/2024 4:26 PM CONSULTING SOLUTION DIRECTOR 04/16/2024 4:30 PM CONSULTING SOLUTION DIRECTOR us Paolo Cortez MD LAB BLOOD ORDERABLES Final R esult [facility] ([place]) [address] [facility] [place] [address] * ECG 12 lead (04/16/2024 4:22 PM CONSULTING SOLUTION DIRECTOR) 04/16/2024 4:22 PM CONSULTING SOLUTION DIRECTOR Narrative [facility] - 04/16/2024 4:53 PM CONSULTING SOLUTION DIRECTOR Vent Rate: 112 bpm RR Interval: 533 msec [place] Interval: 160 msec QRS Duration: 92 msec QT Interval: 321 msec QTC Interval: 387 msec P-R-T [place]: 58 - 65 - 60 degrees IMPRESSION: SINUS TACHYCARDIA INCOMPLETE RIGHT BUNDLE BRANCH BLOCK [90+ ms QRS DURATION, TERMINAL R IN V1/V2, 40+ ms S IN I/aVL/V4/V5/V6] ABNORMAL RHYTHM ECG Electronically Signed By: Jonatan Monte MD Paolo Cortez MD ECG ORDERABLES Final Result [facility] [employer] [facility] from Last 3 Months Insurance [employer] Care Teams Water Resource Consultant Relationship Specialty Start Date End Date Dary Beltrán NP [address] [address] PCP - General Family Medicine 04/16/24
--- OUTSIDE RECORDS SUMMARY | 2024-06-10 13:10 | XMS_ITS | Referral Summary ---
Author Organization [address] lt Address [address] [facility] [facility] [place] [address] Care Team Providers Care Heat Treat Puller Name Role Phone Dary Beltrán NP Primary Care Provider [phone] Encounters Date Type Department Care Team Description 04/22/2024 3:14 PM KEY ACCOUNT COORDINATOR - 04/22/2024 11:59 PM KEY ACCOUNT COORDINATOR Hospital Encounter [facility] Emergency, Room R Discharge Disposition: Discharge to home or self care 04/22/2024 3:34 PM KEY ACCOUNT COORDINATOR - 04/22/2024 6:47 PM KEY ACCOUNT COORDINATOR Emergency [facility] Emergency Department [address] [place] [address] Kunal Marks MD Ittiara, Verona Maierhofer, MD Anxiety (Primary Dx) Discharge Disposition: Discharge to home or self care 04/22/2024 2:30 PM KEY ACCOUNT COORDINATOR Office Visit [facility] Medical Group [facility] [address] [place] [address] Torrie Calles NP Chest pain, unspecified type (Primary Dx); Tachycardia 04/16/2024 8:13 PM KEY ACCOUNT COORDINATOR - 04/17/2024 12:09 AM [facility] Emergency [facility] Emergency Department [address] [place] [address] Kunal Marks MD LUQ pain (Primary Dx) [...] on file Legal Sex Female 2:29 AM KEY ACCOUNT COORDINATOR Gender Identity Not on file Sexual Orientation Not on file Last Filed Vital Signs Vital Sign Reading Time Taken Comments Blood Pressure 115/70 04/22/2024 6:15 PM KEY ACCOUNT COORDINATOR Pulse 83 04/22/2024 6:15 PM KEY ACCOUNT COORDINATOR Temperature 36.3 C (97.4 F) 04/22/2024 4:27 PM KEY ACCOUNT COORDINATOR Respiratory Rate 15 04/22/2024 6:15 PM KEY ACCOUNT COORDINATOR Oxygen Saturation 96% 04/22/2024 6:15 PM KEY ACCOUNT COORDINATOR Inhaled Oxygen Concentration - - Weight 95.7 kg (211 lb) 04/22/2024 3:44 PM KEY ACCOUNT COORDINATOR Height 172.7 cm (5' 8 ) 04/16/2024 4:04 PM KEY ACCOUNT COORDINATOR Body Mass Index 32.08 04/16/2024 4:04 PM KEY ACCOUNT COORDINATOR Plan of Treatment Not on file Procedures Procedure Name Priority Date/Time Associated Diagnosis Comments XR CHEST 1 VIEW ED 04/22/2024 4:52 PM KEY ACCOUNT COORDINATOR EGFR STAT 04/22/2024 4:38 PM KEY ACCOUNT COORDINATOR URINALYSIS, MICROSCOPIC ONLY STAT 04/22/2024 4:38 PM KEY ACCOUNT COORDINATOR DIFFERENTIAL AUTO STAT 04/22/2024 4:3 8 PM KEY ACCOUNT COORDINATOR DRUGS OF ABUSE SCREEN, URINE WITHOUT CONFIRMATION STAT 04/22/2024 4:38 PM KEY ACCOUNT COORDINATOR ETHANOL STAT 04/22/2024 4:38 PM KEY ACCOUNT COORDINATOR HCG, BLOOD, QUANTITATIVE STAT 04/22/2024 4:38 PM KEY ACCOUNT COORDINATOR TROPONIN T HIGH-SENSITIVITY STAT 04/22/2024 4:38 PM KEY ACCOUNT COORDINATOR COMPREHENSIVE METABOLIC PANEL STAT 04/22/2024 4:38 PM KEY ACCOUNT COORDINATOR CBC WITH AUTO DIFFERENTIAL STAT 04/22/2024 4:38 PM KEY ACCOUNT COORDINATOR URINALYSIS AND REFLEX TO MICROSCOPIC AND CULTURE STAT 04/22/2024 4:38 PM KEY ACCOUNT COORDINATOR TSH STAT 04/22/2024 4:34 PM KEY ACCOUNT COORDINATOR ECG 12-LEAD STAT 04/22/2024 4:26 PM [address] COORDINATOR CT ABDOMEN PELVIS W CONTRAST ED 04/16/2024 10:56 PM KEY ACCOUNT COORDINATOR URINALYSIS AND REFLEX TO MICROSCOPIC AND CULTURE STAT 04/16/2024 5:38 PM KEY ACCOUNT COORDINATOR POCT HCG, URINE Routine 04/16/2024 5:34 PM KEY ACCOUNT COORDINATOR EGFR STAT 04/16/2024 4:26 PM KEY ACCOUNT COORDINATOR DIFFERENTIAL AUTO STAT 04/16/2024 4:2 6 PM KEY ACCOUNT COORDINATOR LIPASE STAT 04/16/2024 4:26 PM KEY ACCOUNT COORDINATOR COMPREHENSIVE METABOLIC PANEL STAT 04/16/2024 4:26 PM KEY ACCOUNT COORDINATOR CBC WITH AUTO DIFFERENTIAL STAT 04/16/2024 4:26 PM KEY ACCOUNT COORDINATOR ECG 12-LEAD STAT 04/16/2024 4:22 PM KEY ACCOUNT COORDINATOR from Last 3 Months Results * XR Chest 1 Vw Portable (04/22/2024 4:52 PM KEY ACCOUNT COORDINATOR) Anatomical Region Laterality Modality Body, Chest N/A Computed Radiogr aphy 04/22/2024 4:54 PM KEY ACCOUNT COORDINATOR Narrative 04/22/2024 4:54 PM KEY ACCOUNT COORDINATOR EXAM DESCRIPTION: XR CHEST 1 VIEW REASON FOR STUDY: chest pain Patient to ED via [facility] from [facility] Care for panic attack. EMS reports [...] Roque Stiles M.D. KH: GURJIT Report ID: [id number] Reading Location: [id number] Procedure Note Roque Stiles MD - 04/22/2024 EXAM DESCRIPTION: XR CHEST 1 VIEW REASON FOR STUDY: chest pain Patient to ED via [facility] from [facility] for panic attack. EMS reports [...] Roque Stiles M.D. KH: GURJIT Report ID: [id number] Reading Location: [place] [address] Damaris Bernabe MD IMG XR PROCEDURES F inal Result * Troponin T high-sensitivity (04/22/2024 4:38 PM KEY ACCOUNT COORDINATOR) Trop T hs <6 <=14 ng/L Comment: Interpretive Data For further hscTnT resources including the diagnostic algorithm and an aid in interpretation, copy and paste this link: https://nrl.testcatalog.org/show/hsTrop Current Interpretive Data last revised 2020. Blood 04/22/2024 4:38 PM KEY ACCOUNT COORDINATOR 04/22/2024 4:49 PM KEY ACCOUNT COORDINATOR Damaris Bernabe MD LAB BLOOD ORDERABLE S Final Result [facility] [place] [facility] of [facility] [place], [place] [id number] * eGFR (04/22/2024 4:38 PM KEY ACCOUNT COORDINATOR) eGFR >90 >=60 mL/min/1. 73 m2 Comment: [...] last reviewed 2021. Blood 04/22/2024 4:38 PM KEY ACCOUNT COORDINATOR 04/22/2024 4:49 PM KEY ACCOUNT COORDINATOR us Damaris Bernabe MD LAB BLOOD ORDERABLE S Final Result [facility] ([place]) 1 [facility] [place] [address] * Differential, auto (04/22/2024 4:38 PM KEY ACCOUNT COORDINATOR) Neutrophil abs 6.5 1.5 - 6.5 K/cumm [...] revised on 2017. Blood 04/22/2024 4:38 PM KEY ACCOUNT COORDINATOR 04/22/2024 4:49 PM KEY ACCOUNT COORDINATOR us Damaris Bernabe MD LAB BLOOD ORDERABLE S Final Result [facility] ([place]) 1 [facility] [place] [address] * (ABNORMAL) Urinalysis reflex to microscopic and culture Urine (04/22/2024 4:38 PM KEY ACCOUNT COORDINATOR) Color, ur Yellow Yellow Clarity, ur Turbid(A) Clear WOO [facility] ([place]) Specific gravity, ur 1.009 1.003 - 1.030 WOO [facility] ([place]) pH, urine 8.0 WOO [facility] ([place]) Comment: Interpretive Data U rine pH is affected by diet, medications, systemic acid-base disturbances, and renal tubular function. pH may affect urinary stone formation. For example, urine pH below 6.0 may help reduce the tendency for calcium phosphate stones and pH greater than 6.0 may reduce the tendency for uric acid stone formation. Source: [facility] [employer] Current Interpretive Data was last revised on [...] [facility] ([place]) Urine 04/22/2024 4:38 PM KEY ACCOUNT COORDINATOR 04/22/2024 4:49 PM KEY ACCOUNT COORDINATOR us Damaris Bernabe MD LAB MICROBIOLOGY - GENERAL ORDERABLES Final Result [facility] ([place] 1 [facility] [place] [address] * CBC with auto differential (04/22/2024 4:38 PM KEY ACCOUNT COORDINATOR) WBC 9.9 3.8 - 9.9 K/cumm Hgb [...] [facility] ([place]) Blood 04/22/2024 4:38 PM KEY ACCOUNT COORDINATOR 04/22/2024 4:49 PM KEY ACCOUNT COORDINATOR us Damaris Bernabe MD LAB BLOOD ORDERABLE S Final Result [facility] ([place]) 1 [facility] [place] [address] * (ABNORMAL) Drugs of Abuse Screen, Urine without Confirmation (04/22/2024 4:38 PM KEY ACCOUNT COORDINATOR) Pathologist [facility] Amphetamine, ur Not Detected CutOff 500ng/mL Comment: [...] revised on 2017. Urine 04/22/2024 4:38 PM KEY ACCOUNT COORDINATOR 04/22/2024 4:49 PM KEY ACCOUNT COORDINATOR Narrative [facility] ([place]) - 04/22/2024 5:12 PM KEY ACCOUNT COORDINATOR Drug of Abuse screening is performed by immunoassay for medical purposes only. This is not to be used for Pain Management purposes. Damaris Bernabe MD LAB URINE ORDERABLE S Final Result Performing Organization Address City/[facility]/ZIP Co de Phone Number WOO [facility] ([place]) 1 [facility] [place] [address] * (ABNORMAL) Urinalysis, microscopic only (04/22/2024 4:38 PM KEY ACCOUNT COORDINATOR) WBC, ur 0-5 0 - 5 /HPF RBC, ur 0-2 0 - 2 /HPF [facility] ([place]) Epithelial cells, squamous, ur 11-20(A) 0 - 5 /HPF [facility] ([place]) Bacteria, ur 1+(A) [facility] ([place]) Mucous, ur Present(A) [facility] A ([place]) Culture Reflex Comment Reflex conditions for urine culture (WBC >10) not met. [facility]OO [facility] ([place]) Urine 04/22/2024 4:38 PM KEY ACCOUNT COORDINATOR 04/22/2024 4:49 PM KEY ACCOUNT COORDINATOR Damaris Bernabe MD LAB URINE ORDERABLE S Final Result Performing Organization Address City/[facility]/ZIP Co de Phone Number WOO RONALDO ([place]) 1 [facility] [place] [address] * hCG, blood, quantitative (04/22/2024 4:38 PM KEY ACCOUNT COORDINATOR) hCG, quant <5.0 0.0 - 5.0 IUnits/L Comment: Interpretive Data Male: < 5 IU/L Non- premenopausal Female: <5 IU/L The Trista hCG Beta Quant assay procedure was used. Results from different manufacturers or methods may not be comparable. Serial testing should be performed using the same method. Interpretive Data was last revised on 2023 Blood 04/22/2024 4:38 PM KEY ACCOUNT COORDINATOR 04/22/2024 4:49 PM KEY ACCOUNT COORDINATOR Damaris Bernabe MD LAB BLOOD ORDERABLE S Final Result Performing Organization Address City/[facility] Co de Phone Number [facility]OO [facility] ([place]) [address] [place] [address] * Ethanol (04/22/2024 4:38 PM KEY ACCOUNT COORDINATOR) Pathologist [facility] Ethanol <10 <=10 mg/dL Comment: Interpretive Data Legal limit of intoxication > or = 80 mg/dL Levels > or = 400 mg/dL are potentially TOXIC. Current interpretive data was last revised on 2018. Blood 04/22/2024 4:38 PM KEY ACCOUNT COORDINATOR 04/22/2024 4:49 PM KEY ACCOUNT COORDINATOR Damaris Bernabe MD LAB BLOOD ORDERABLE S Final Result Performing Organization Address [facility] de Phone Number WOO [facility] ([place]) [address] [place] [address] * (ABNORMAL) Comprehensive metabolic panel (04/22/2024 4:38 PM KEY ACCOUNT COORDINATOR) Sodium 139 135 - 145 mmol/L Potassium, pl 3.3 3.3 - 4.9 mmol/L [facility] ([place]) Chloride 106 97 - 110 mmol/L [facility] ([place]) CO2 21(L) 22 - 32 mmol/L [facility] ([place]) Anion gap 12 2 - 15 mmol/L [facility] ([place]) BUN 7 6 - 25 mg/dL [facility] ([place]) Creatinine 0.63 0.60 - 1.10 mg/dL [facility] ([place]) Glucose 99 70 - 199 mg/dL [facility] ([place]) Comment: Interpretive Data Fasting [...] [facility] ([place]) Blood 04/22/2024 4:38 PM KEY ACCOUNT COORDINATOR 04/22/2024 4:49 PM KEY ACCOUNT COORDINATOR Damaris Bernabe MD LAB BLOOD ORDERABLE S Final Result Performing Organization Address City/[facility]/ZIP Co de Phone Number [facility] ([place]) 1 [facility] [place] [address] * TSH (04/22/2024 4:34 PM KEY ACCOUNT COORDINATOR) Thyroid Stimulating Hormone 1.18 0.30 - 4.20 mcIUnit/mL Blood 04/22/2024 4:34 PM KEY ACCOUNT COORDINATOR 04/22/2024 5:06 PM KEY ACCOUNT COORDINATOR Damaris Bernabe MD LAB BLOOD ORDERABLE S Final Result Performing Organization Address City/[facility]/ZIP Co de Phone Number [facility] ([place]) 1 [facility] [place] [address] * ECG 12 lead (04/22/2024 4:26 PM KEY ACCOUNT COORDINATOR) 04/22/2024 4:26 PM KEY ACCOUNT COORDINATOR Narrative [facility] - 04/23/2024 6:28 AM KEY ACCOUNT COORDINATOR Vent Rate: 78 bpm RR Interval: 764 msec ID Interval: 156 msec QRS Duration: 95 msec QT Interval: 379 msec QTC Interval: 412 msec P-R-T [place]: 44 - 48 - 47 degrees IMPRESSION: [...] Bernabe MD ECG ORDERABLES Fin al Result [facility] [employer] * CT Abdomen Pelvis W Contrast (04/16/2024 10:56 PM KEY ACCOUNT COORDINATOR) Anatomical Region Laterality Modality Body N/A Computed Tomogra phy 04/16/2024 11:1 1 PM KEY ACCOUNT COORDINATOR Narrative 04/16/2024 11:13 PM KEY ACCOUNT COORDINATOR EXAM DESCRIPTION: CT ABDOMEN PELVIS W CONTRAST [...] Roque Stiles M.D. KH: GURJIT Report ID: [id number] Reading Location: [place] [address] Procedure Note Roque Stiles MD - 04/16/2024 [...] Roque Stiles M.D. KH: GURJIT Report ID: [id number] Reading Location: [place] [address] Kunal Marks MD IMG CT PROCEDURES Final Result * (ABNORMAL) Urinalysis reflex to microscopic and culture Urine (04/16/2024 5:38 PM KEY ACCOUNT COORDINATOR) Color, ur Yellow Yellow Clarity, ur Clear [...] tendency for uric acid stone formation. Source: [facility] [employer] Current Interpretive Data was last revised on [...] [facility] ([place]) Urine 04/16/2024 5:38 PM KEY ACCOUNT COORDINATOR 04/16/2024 5:52 PM KEY ACCOUNT COORDINATOR Paolo Cortez MD LAB MICROBIOLOGY - GENERAL O RDERABLES Final Result [facility] ([place]) 1 [facility] [employer] [place] [address] * POCT hCG, urine (04/16/2024 5:34 PM KEY ACCOUNT COORDINATOR) HCG, ur, POC Negative Negative Lot Number [id number] QC Backgroud Clear Acceptable QC Control Line Acceptable Urine 04/16/2024 5:34 PM KEY ACCOUNT COORDINATOR Paolo Cortez MD POINT OF CARE TEST ORDERABLE S Final Result * eGFR (04/16/2024 4:26 PM KEY ACCOUNT COORDINATOR) eGFR >90 >=60 mL/min/1. 73 m2 Comment: [...] last reviewed 2021. Blood 04/16/2024 4:26 PM KEY ACCOUNT COORDINATOR 04/16/2024 4:30 PM KEY ACCOUNT COORDINATOR Paolo Cortez MD LAB BLOOD ORDERABLES Final R esult [facility] ([place]) 1 [facility] [employer] [place] [address] * (ABNORMAL) Differential, auto (04/16/2024 4:26 PM KEY ACCOUNT COORDINATOR) Neutrophil abs 9.5(H) 1.5 - 6.5 K/cumm [...] revised on 2017. Blood 04/16/2024 4:26 PM KEY ACCOUNT COORDINATOR 04/16/2024 4:30 PM KEY ACCOUNT COORDINATOR Paolo Cortez MD LAB BLOOD ORDERABLES Final R esult [facility] ([place]) 1 [facility] [place] [address] * (ABNORMAL) CBC with auto differential (04/16/2024 4:26 PM KEY ACCOUNT COORDINATOR) WBC 12.6(H) 3.8 - 9.9 K/cumm Hgb [...] blood specimen / Unknown 04/16/2024 4:26 PM KEY ACCOUNT COORDINATOR 04/16/2024 4:30 PM KEY ACCOUNT COORDINATOR Paool Cortez MD LAB BLOOD ORDERABLES Final R esult [facility]OO [facility] ([place]) 1 [facility] [place] [address] * Lipase (04/16/2024 4:26 PM KEY ACCOUNT COORDINATOR) Lipase 20 10 - 99 Units/L Blood Venous blood specimen / Unknown 04/16/2024 4:26 PM KEY ACCOUNT COORDINATOR 04/16/2024 4:30 PM KEY ACCOUNT COORDINATOR us Paolo Cortez MD LAB BLOOD ORDERABLES Final R esult [facility] ([place]) 1 [facility] [place] [address] * (ABNORMAL) Comprehensive metabolic panel (04/16/2024 4:26 PM KEY ACCOUNT COORDINATOR) Sodium 139 135 - 145 mmol/L Potassium, [...] [facility] ([place]) Blood 04/16/2024 4:26 PM KEY ACCOUNT COORDINATOR 04/16/2024 4:30 PM KEY ACCOUNT COORDINATOR Paolo Cortez MD LAB BLOOD ORDERABLES Final R esult Performing Organization Address City/[facility] Co de Phone Number [facility] ([place]) 1 [facility] [place] [address] * ECG 12 lead (04/16/2024 4:22 PM KEY ACCOUNT COORDINATOR) 04/16/2024 4:22 PM KEY ACCOUNT COORDINATOR Narrative [facility] - 04/16/2024 4:53 PM KEY ACCOUNT COORDINATOR Vent Rate: 112 bpm RR Interval: 533 msec ID Interval: 160 msec QRS Duration: 92 msec QT Interval: 321 msec QTC Interval: 387 msec P-R-T [place]: 58 - 65 - 60 degrees IMPRESSION: SINUS TACHYCARDIA INCOMPLETE RIGHT BUNDLE BRANCH BLOCK [90+ ms QRS DURATION, TERMINAL R IN V1/V2, 40+ ms S IN I/aVL/V4/V5/V6] ABNORMAL RHYTHM ECG Electronically Signed By: Jonatan Monte MD Paolo Cortez MD ECG ORDERABLES Final Result Performing Organization Address City/[facility] Co de Phone Number [facility] [employer] [facility] from Last 3 Months [facility] Care Teams Heat Treat Puller Relationship Specialty Start Date End Date Dary Beltrán NP [address] [address] PCP - General Family Medicine 04/16/24
--- OUTSIDE RECORDS SUMMARY | 2024-06-10 13:10 | XMS_ITS | Continuity of Care Document ---
Author Organization [facility] Address [address] [place] [address] [place] [address] Phone Care Team Providers Care Scrap Crane Operator Name Role Phone Euceda OD, Maged Unavailable Unavailable Procedures Procedure Date Eye Exam, New Patient Refraction Eye Exam, New Patient Refraction Advance Directives Directive Yes / No Effective Date File Name No Information Encounters Encounter Description Practice Location Reason(s) For Visit Diagnoses Date Provider Providers Copied on Encounter [facility], [address] [place] [address] [address], [place], [place], [id number], tel:[phone] SEC [facility] No Information 6-201 0 Euceda OD Maged. [address], [place], [place], [facility], [place]. tel:[phone] [facility], [address] [place] [address] [address], [place], [place], [id number], tel:[phone] [facility] [place] No Information [address], [place], [place], [facility], [place]. tel:[phone] Family History Family Member Type Diagnosis Age At Onset No Information Payers Payer name Insurance type Covered republican ID Authoriza tiblank(s) [facility] Commercial CI [id number] [facility] SOI [place] [id number] [place] [id number] Social History Type Description Quantity Date Captured [...]
--- OUTSIDE RECORDS SUMMARY | 2024-06-10 13:13 | XMS_ITS | Continuity of Care Document ---
Author Organization [facility] Address [address] [place] [address] [place] [address] Phone Care Team Providers Care Stars Specialist Name Role Phone Euceda OD, Maged Unavailable Unavailable Procedures Procedure Date Eye Exam, New Patient Refraction Eye Exam, New Patient Refraction Advance Directives Directive Yes / No Effective Date File Name No Information Encounters Encounter Description Practice Location Reason(s) For Visit Diagnoses Date Provider Providers Copied on Encounter [facility], [address] [place] [address] [address], [place], [place], [id number], tel:[phone] SEC [facility] No Information 6-201 0 Euceda OD Maged. [address] [facility], [place], [place], [facility], [place]. tel:[phone] [facility], [address] [place] [address] [address], [place], [place], [id number], tel:[phone] [facility] [place] No Information [address], [place], [place], [facility], [place]. tel:[phone] Family History Family Member Type Diagnosis Age At Onset No Information Payers Payer name Insurance type Covered constitution party ID Authoriza tiblank(s) [facility] Commercial CI [id number] [facility] SOI CI [id number] [place] [id number] Social History Type Description Quantity Date Captured [...]
[2024-06-10 13:21] VITALS: BP 143/82; PULSE 88; RESP 16; TEMP 36.7; O2SAT 99
--- NOTE | 2024-06-10 13:59 | ED.GENADULT ---
HPI - General Adult General Chief complaint: Nausea/Vomiting/Diarrhea Stated complaint: fatigue/nausea Source: patient Mode of arrival: ambulatory Limitations: no limitations History of Present Illness HPI narrative: Pt presents for evaluation of fatigue. Symptom onset 2 days ago. She indicates her sleep pattern fluctuates between 6-9 hours per night. She indicates that no matter now much she sleeps, she still feels tired. Reports generalized body aches, hot flashes, nausea and vomiting since the time of symptom onset. She has experienced diarrhea for several months. She is currently working with gastroenterology to identify the source of her symptoms. She does have IBS and it sounds like she has an upcoming EGD. She denies any recent alcohol use or illicit drug use. She does smoke marijuana to assist with sleep. She states her mood is stable. She lives with her boyfriend and states she is satisfied with that relationship. Therefore she does not think she is experiencing depression which could be contributing to her fatigue. She does mention earlier this month she had some vaginal bleeding for about 2 weeks. This is somewhat abnormal for her as her periods typically last five days but are irregular in frequency. She has not had any bleeding since 06/02/24. She has an IUD. She denies any cough, shortness of breath or sore throat. She was experiencing palpitations so her primary provider had her wear a heart monitor. Her results were normal. She is currently on propanolol. Related Data Home Medications ?Medication ?Instructions ?Recorded ?Confirmed ?Last Taken ?Type levonorgestrel 14 mcg/24 hr (up to 1 device intrauterine ONCE 03/06/24 05/03/24 Unknown History 3 yrs) 13.5 mg intrauterine device (Christal) Allergies Allergy/AdvReac Type Severity Reaction Status Date / Time amitriptyline Allergy Swelling Verified 05/03/24 07:03 of the Eye Review of Systems Review of Systems: CONSTITUTIONAL: Reports fatigue and hot flashes. Denies fever or chills EYES: Denies visual changes, redness, or discharge. ENT: Denies rhinorrhea, congestion, sore throat, or otalgia. CARDIOVASCULAR: Denies chest pain, palpitations, or edema. RESPIRATORY: Denies cough or dyspnea. GASTROINTESTINAL: Reports nausea and vomiting. Reports diarrhea for several months GENITOURINARY: Denies dysuria or hematuria. SKIN: Denies rash or itching. MUSCULOSKELETAL: Reports generalized body aches NEUROLOGIC: Denies headache, numbness, dizziness, or weakness. PSYCHIATRIC: Denies anxiety or depression. FORMERLY [facility], [facility]–1983 Past Medical History Medical History Change in bowel habits Vomiting LUQ pain LLQ pain Encounter to establish care Vaginal discharge Abdominal pain Anxiety disorder Surgical History Surgical History No pertinent past surgical history Family History Family History Mother Depression Anxiety COPD (chronic obstructive pulmonary disease) Alzheimer dementia H/O vein stripping CHF (congestive heart failure) Alcoholism Sibling Depression Anxiety Sibling Anxiety Depression Asthma Grandparent Anxiety Depression Hypertension Other Attention deficit hyperactivity disorder Social History Social History (Updated 06/10/24 @ 14:09 by GADIEL Hurst, VIN) Smoking status: Never smoker Alcohol intake: never Substance use: current Substance use type: marijuana Do You Feel Safe in your Home?: Yes Lack of Transportation: No Lack of Food: Never True Current Housing: I Have Housing Concerned About Future Housing: No Difficulty Paying Gas/Electric Bills: No Difficulty Paying for Meds: No Currently Unemployed: No Education: High School Diploma/GED Difficulty w/ Childcare or Family Care: No Living arrangements: with family Additional living arrangements comments: foster parents Gender identity (if verbalized by the patient): Female Sexual Orientation (if Verbalized by the Patient): Bisexual Agree to blood products: Yes Exam Narrative: GENERAL: Well-appearing, well-nourished, and in no acute distress. HEAD: Normocephalic, atraumatic. EYES: PERRLA and EOMI. ENT: Nares clear, no rhinorrhea or epistaxis. Mucous membranes moist. Oropharynx without tonsillar hypertrophy exudate or other lesions. Bilateral TMs pearly mtz nonbulging NECK: Supple. No adenopathy or masses. No carotid bruits or JVD CHEST: Clear to auscultation. No respiratory distress. No wheezes rales or rhonchi HEART: Regular rate and rhythm. No murmur heard. Normal peripheral pulses. ABDOMEN: Soft, nontender, nondistended, normal active bowel sounds. EXTREMITIES: Normal range of motion. No edema. SKIN: Warm, dry, no rash. NEURO: No focal deficits. Alert and oriented x3. PSYCH: Normal mood and affect. Course Course Emergency Course: This is a 18-year-old female who presented for evaluation of fatigue. COVID, influenza, mono were all negative. I reviewed her CBC from this year which was normal. She has a normal heart rate and BP which would make me doubt that she has a significant anemia. She looks extremely well and is stable for discharge. She may benefit from additional outpatient labs including thyroid function. I recommended she contact her primary care provider tomorrow for further workup for symptoms. In the event that she has considerable decline in her overall condition she should go to the emergency department. Patient in agreement with plan of care. Level of Care: Express Care Visit Vital Signs Vital signs: Vital Signs Temperature 36.7 C 06/10/24 13:21 Pulse Rate 88 06/10/24 13:21 Respiratory Rate 16 06/10/24 13:21 Blood Pressure 143/82 H 06/10/24 13:21 Pulse Oximetry 99 06/10/24 13:21 Oxygen Delivery Room Air 06/10/24 13:21 Temperature 36.7 C 06/10/24 13:21 Pulse Rate 88 06/10/24 13:21 Respiratory Rate 16 06/10/24 13:21 Blood Pressure 143/82 H 06/10/24 13:21 Pulse Oximetry 99 06/10/24 13:21 Oxygen Delivery Room Air 06/10/24 13:21 Medical Decision Making Vital Signs Vital Signs: Vital Signs Temperature 36.7 C 06/10/24 13:21 Pulse Rate 88 06/10/24 13:21 Respiratory Rate 16 06/10/24 13:21 Blood Pressure 143/82 H 06/10/24 13:21 Pulse Oximetry 99 06/10/24 13:21 Oxygen Delivery Room Air 06/10/24 13:21 Temperature 36.7 C 06/10/24 13:21 Pulse Rate 88 06/10/24 13:21 Respiratory Rate 16 06/10/24 13:21 Blood Pressure 143/82 H 06/10/24 13:21 Pulse Oximetry 99 06/10/24 13:21 Oxygen Delivery Room Air 06/10/24 13:21 Lab Data Labs: Lab Results 03/23/25 03/23/25 Range/Units 13:50 14:16 POC Monoscreen Negative (Negative) POC Influenza A Ag Negative (Negative) POC Influenza B Ag Negative (Negative) POC SARS CoV-2 Ag Negative (Negative) Discharge Plan Discharge Clinical Impression: Fatigue Patient Disposition: Home, Self-Care Condition: Stable Instructions: Antibiotic Form, Fatigue (ED) Patient Language: Danish Prescriptions: No Action omeprazole 40 mg capsule,delayed release(DR/EC) 40 mg PO DAILY 30 Days Qty: 30 5RF propranolol 20 mg tablet 20 mg PO QID PRN (Reason: anxiety) Qty: 120 0RF Christal 14 mcg/24 hr (3 yrs) 13.5 mg intrauterine device 1 device intrauterine ONCE Rx Instructions: as a single dose ondansetron 4 mg tablet,disintegrating 4 mg PO Q6H PRN (Reason: nausea and vomiting) Qty: 30 0RF naproxen [Naprosyn] 500 mg tablet 500 mg PO BID PRN (Reason: pain) Qty: 14 0RF hydrocortisone acetate 30 mg suppository 30 mg RECTAL BID Qty: 12 0RF Follow-up/Referrals: Dary Beltrán APRN [Primary Care Provider] - Stand Alone Forms: Work/School Release IP Time of Disposition: 14:20
[2024-06-10 14:12] LABS: EDMONONEGPOS Negative (Negative)
[2024-06-10 14:17] LABS: EDCOVIDSCREEN Negative (Negative); EDINFLUASCREEN Negative (Negative); EDINFLUBSCREEN Negative (Negative)
== END 2024-06-10 14:26 | disposition home or self-care (01) ==
PROVIDERS: Emergency Provider Nurse Practitioner; PCP Nurse Practitioner Family
DX: R53.83 Other fatigue (principal); Z20.822 Contact with and (suspected) exposure to COVID-19; F12.90 Cannabis use, unspecified, uncomplicated; K58.9 Irritable bowel syndrome, unspecified; Z97.5 Presence of (intrauterine) contraceptive device
CPT/HCPCS: 36416; 86308; 87426; 87804; 99212; G0463

== ENCOUNTER 2024-06-25 01:31 | Day surgery (SDC) | payer OTHER, SELFPAY ==
[2024-06-20 09:25] VITALS: BMI 31.5
--- OUTSIDE RECORDS SUMMARY | 2024-06-25 01:35 | XMS_ITS | Referral Summary ---
Author Organization [address] lt Address [address] [place] [address] Care Team Providers Care Armature Connector Name Role Phone Dary Beltrán NP Primary Care Provider [phone]- [phone] Encounters Date Type Department Care Team Description 04/22/2024 3:14 PM COMMANDING OFFICER [employer] - 04/22/2024 11:59 PM [employer]ING OFF[employer]ER [employer] Hospital Encounter [facility] Emergency, Room R Discharge Disposition: Discharge to home or self care 04/22/2024 3:34 PM COMMANDING OFFICER [employer] - 04/22/2024 6:47 PM COMMANDING OFFIC[employer] Emergency [facility] Emergency Department [address] [place] [id number] Kunal Marks MD Ittiara, Verona Maierhofer, MD Anxiety (Primary Dx) Discharge Disposition: Discharge to home or self care 04/22/2024 2:30 PM [employer]ING [employer]ICER [employer] Office Visit [facility] Medical Group [facility] [place] [address] [place] [address] Torrie Calles NP Chest pain, unspecified type (Primary Dx); Tachycardia 04/16/2024 8:13 PM COMMANDING OFFICER [employer] - 04/17/2024 12:09 AM [facility] Emergency [facility] Emergency Department [address] [place] [id number] Kunal Marks MD LUQ pain (Primary Dx) [...] on file Legal Sex Female 2:29 AM COMMANDING OFFICER [employer] Gender Identity Not on file Sexual Orientation Not on file Last Filed Vital Signs Vital Sign Reading Time Taken Comments Blood Pressure 115/70 04/22/2024 6:15 PM COMMANDING OFFICER [employer] Pulse 83 04/22/2024 6:15 PM [employer]ING OFFICER [employer] Temperature 36.3 C (97.4 F) 04/22/2024 4:27 PM COMMANDING OFFICER [employer] Respiratory Rate 15 04/22/2024 6:15 PM COMMANDING OFFICER [employer]AGE Oxygen Saturation 96% 04/22/2024 6:15 PM [employer]ING OFFICER [employer] Inhaled Oxygen Concentration - - Weight 95.7 kg (211 lb) 04/22/2024 3:44 PM COMMANDING OFFICER [employer] Height 172.7 cm (5' 8 ) 04/16/2024 4:04 PM COMMANDING OFFICER [employer] Body Mass Index 32.08 04/16/2024 4:04 PM [employer]ING OFFICER [employer] Plan of Treatment Not on file Procedures Procedure Name Priority Date/Time Associated Diagnosis Comments XR CHEST 1 VIEW ED 04/22/2024 4:52 PM [employer]ING OFFICER [employer] EGFR STAT 04/22/2024 4:38 PM COMMANDING OFFICER [employer] URINALYSIS, MICROSCOPIC ONLY STAT 04/22/2024 4:38 PM COMMANDING OFFICER [employer] DIFFERENTIAL AUTO STAT 04/22/2024 4:3 8 PM [employer]ING OFFICER [employer] DRUGS OF ABUSE SCREEN, URINE WITHOUT CONFIRMATION STAT 04/22/2024 4:38 PM [employer]ING OFFICER [employer] ETHANOL STAT 04/22/2024 4:38 PM [employer]ING OFFICER [employer]AGE HCG, BLOOD, QUANTITATIVE STAT 04/22/2024 4:38 PM [employer]ING OFFICER [employer] TROPONIN T HIGH-SENSITIVITY STAT 04/22/2024 4:38 PM [employer]ING OFFICER [employer] COMPREHENSIVE METABOLIC PANEL STAT 04/22/2024 4:38 PM COMMANDING OFFICER [employer]AGE CBC WITH AUTO DIFFERENTIAL STAT 04/22/2024 4:38 PM [employer]ING OFFICER [employer] URINALYSIS AND REFLEX TO MICROSCOPIC AND CULTURE STAT 04/22/2024 4:38 PM COMMANDING OFFICER [employer]AGE TSH STAT 04/22/2024 4:34 PM [employer]ING OFFICER [employer] ECG 12-LEAD STAT 04/22/2024 4:26 PM [employer] CT ABDOMEN PELVIS W CONTRAST ED 04/16/2024 10:56 PM [employer]ING OFFICER [employer] URINALYSIS AND REFLEX TO MICROSCOPIC AND CULTURE STAT 04/16/2024 5:38 PM [employer]ING OFFIC[employer] POCT HCG, URINE Routine 04/16/2024 5:34 PM COMMANDING OFFICER [employer] EGFR STAT 04/16/2024 4:26 PM COMMANDING OFFICER [employer] DIFFERENTIAL AUTO STAT 04/16/2024 4:2 6 PM [employer]ING OFFICER [employer] LIPASE STAT 04/16/2024 4:26 PM COMMANDING OFFICER [employer] COMPREHENSIVE METABOLIC PANEL STAT 04/16/2024 4:26 PM COMMANDING OFFICER [employer] CBC WITH AUTO DIFFERENTIAL STAT 04/16/2024 4:26 PM COMMANDING OFFICER [employer] ECG 12-LEAD STAT 04/16/2024 4:22 PM [employer]ING OFFICER [employer] from Last 3 Months Results * XR Chest 1 Vw Portable (04/22/2024 4:52 PM COMMANDING OFFICER [employer]) Anatomical Region Laterality Modality Body, Chest N/A Computed Radiogr aphy 04/22/2024 4:54 PM COMMANDING OFFICER [employer] Narrative 04/22/2024 4:54 PM COMMANDING OFFICER [employer] EXAM DESCRIPTION: XR CHEST 1 VIEW REASON FOR STUDY: chest pain Patient to ED via [facility] EMS from [facility] Care for panic attack. EMS [...] Roque Stiles M.D. KH: GURJIT Report ID: [id number] Reading Location: [id number] Procedure Note Roque Stiles MD - 04/22/2024 [...] Roque Stiles M.D. KH: GURJIT Report ID: [id number] Reading Location: [place] [address] Damaris Bernabe MD IMG XR PROCEDURES F inal Result * Troponin T high-sensitivity (04/22/2024 4:38 PM COMMANDING OFFIC[employer]) Trop T hs <6 <=14 ng/L Comment: Interpretive Data For further hscTnT resources including the diagnostic algorithm and an aid in interpretation, copy and paste this link: https://nrl.testcatalog.org/show/hsTrop Current Interpretive Data last revised 2020. Blood 04/22/2024 4:38 PM [employer]ING OFFICER [employer] 04/22/2024 4:49 PM [employer]ING OFFICER [employer] Damaris Bernabe MD LAB BLOOD ORDERABLE S Final Result [facility]) [address] [facility] Department of Laboratories [place], [place] [id number] * eGFR (04/22/2024 4:38 PM COMMANDING OFFICER [employer]) eGFR >90 >=60 mL/min/1. 73 m2 Comment: [...] last reviewed 2021. Blood 04/22/2024 4:38 PM COMMANDING OFFICER [employer]AGE 04/22/2024 4:49 PM COMMANDING OFFICER [employer] us Damaris Bernabe MD LAB BLOOD ORDERABLE S Final Result [facility] ([facility]) [address] [facility] [place] [address] * Differential, auto (04/22/2024 4:38 PM COMMANDING OFFICER [employer]) Neutrophil abs 6.5 1.5 - 6.5 K/cumm [...] revised on 2017. Blood 04/22/2024 4:38 PM COMMANDING OFFICER [employer] 04/22/2024 4:49 PM COMMANDING OFFICER [employer]ARAGE us Damaris Bernabe MD LAB BLOOD ORDERABLE S Final Result [facility] ([facility]) [address] [facility] [place] [address] * (ABNORMAL) Urinalysis reflex to microscopic and culture Urine (04/22/2024 4:38 PM COMMANDING OFFICER [employer]ARAGE) Color, ur Yellow Yellow Clarity, ur Turbid(A) Clear [facility] ([facility]) Specific gravity, ur 1.009 1.003 - 1.030 [facility] ([facility]) pH, urine 8.0 [facility] ([facility]) Comment: Interpretive Data U rine pH is affected by diet, medications, systemic acid-base disturbances, and renal tubular function. pH may affect urinary stone formation. For example, urine pH below 6.0 may help reduce the tendency for calcium phosphate stones and pH greater than 6.0 may reduce the tendency for uric acid stone formation. Source: [facility] [place] [email or web address] Current Interpretive Data was last revised on [...] [facility] ([facility]) Urine 04/22/2024 4:38 PM COMMANDING OFFICER [employer]ARAGE 04/22/2024 4:49 PM COMMANDING OFFICER GARAGE us Damaris Bernabe MD LAB MICROBIOLOGY - GENERAL ORDERABLES Final Result [facility] [address] [facility] [place] [address] * CBC with auto differential (04/22/2024 4:38 PM COMMANDING OFFICER [employer]ARAGE) WBC 9.9 3.8 - 9.9 K/cumm Hgb [...] [facility] ([facility]) Blood 04/22/2024 4:38 PM COMMANDING OFFICER [employer]AGE 04/22/2024 4:49 PM COMMANDING OFFICER GARAGE us Damaris Bernabe MD LAB BLOOD ORDERABLE S Final Result [facility] ([facility]) [address] [facility] [place] [address] * (ABNORMAL) Drugs of Abuse Screen, Urine without Confirmation (04/22/2024 4:38 PM COMMANDING OFFICER GARAGE) Pathologist [facility] Amphetamine, ur Not Detected CutOff 500ng/mL Comment: [...] revised on 2017. Urine 04/22/2024 4:38 PM COMMANDING OFFICER [employer]AGE 04/22/2024 4:49 PM COMMANDING OFFICER GARAGE Narrative [facility] ([facility]) - 04/22/2024 5:12 PM COMMANDING OFFICER [employer]ARAGE Drug of Abuse screening is performed by immunoassay for medical purposes only. This is not to be used for Pain Management purposes. Damaris Bernabe MD LAB URINE ORDERABLE S Final Result Performing Organization Address City/[facility]/ZIP Co de Phone Number [facility] ([facility]) [address] [facility] [place] [address] * (ABNORMAL) Urinalysis, microscopic only (04/22/2024 4:38 PM COMMANDING OFFICER [employer]ARAGE) WBC, ur 0-5 0 - 5 /HPF RBC, ur 0-2 0 - 2 /HPF [facility] Epithelial cells, squamous, ur 11-20(A) 0 - 5 /HPF [facility] Bacteria, ur 1+(A) [facility] Mucous, ur Present(A) [facility] ([facility]) Culture Reflex Comment Reflex conditions for urine culture (WBC >10) not met. [facility] ([facility]) Urine 04/22/2024 4:38 PM COMMANDING OFFICER [employer]ARAGE 04/22/2024 4:49 PM COMMANDING OFFICER [employer]AGE Damaris Bernabe MD LAB URINE ORDERABLE S Final Result Performing Organization Address City/[facility]/ZIP Co de Phone Number [facility] ([facility]) [address] [facility] [place] [address] * hCG, blood, quantitative (04/22/2024 4:38 PM COMMANDING OFFICER [employer]ARAGE) hCG, quant <5.0 0.0 - 5.0 IUnits/L Comment: Interpretive Data Male: < 5 IU/L Non- premenopausal Female: <5 IU/L The Trista hCG Beta Quant assay procedure was used. Results from different manufacturers or methods may not be comparable. Serial testing should be performed using the same method. Interpretive Data was last revised on 2023 Blood 04/22/2024 4:38 PM COMMANDING OFFICER [employer]ARAGE 04/22/2024 4:49 PM COMMANDING OFFICER [employer]ARAGE Damaris Bernabe MD LAB BLOOD ORDERABLE S Final Result Performing Organization Address City/[facility] Co de Phone Number [facility] ([facility]) [address] [place] [address] * Ethanol (04/22/2024 4:38 PM COMMANDING OFFICER GARAGE) Pathologist [facility] Ethanol <10 <=10 mg/dL Comment: Interpretive Data Legal limit of intoxication > or = 80 mg/dL Levels > or = 400 mg/dL are potentially TOXIC. Current interpretive data was last revised on 2018. Blood 04/22/2024 4:38 PM COMMANDING OFFICER GARAGE 04/22/2024 4:49 PM COMMANDING OFFICER [employer]ARAGE Damaris Bernabe MD LAB BLOOD ORDERABLE S Final Result Performing Organization Address [facility] de Phone Number [facility] ([facility]) [address] [place] [address] * (ABNORMAL) Comprehensive metabolic panel (04/22/2024 4:38 PM COMMANDING OFFICER GARAGE) Sodium 139 135 - 145 mmol/L Potassium, pl 3.3 3.3 - 4.9 mmol/L [facility] ([facility]) Chloride 106 97 - 110 mmol/L [facility] ([facility]) CO2 21(L) 22 - 32 mmol/L [facility] ([facility]) Anion gap 12 2 - 15 mmol/L [facility] ([facility]) BUN 7 6 - 25 mg/dL [facility] ([facility]) Creatinine 0.63 0.60 - 1.10 mg/dL [facility] ([facility]) Glucose 99 70 - 199 mg/dL [facility] ([facility]) Comment: Interpretive Data Fasting [...] [facility] ([facility]) Blood 04/22/2024 4:38 PM COMMANDING OFFICER GARAGE 04/22/2024 4:49 PM COMMANDING OFFICER [employer]AGE Damaris Bernabe MD LAB BLOOD ORDERABLE S Final Result Performing Organization Address City/[facility]/ZIP Co de Phone Number [facility] ([facility]) [address] [facility] [place] [address] * TSH (04/22/2024 4:34 PM COMMANDING OFFICER [employer]ARAGE) Thyroid Stimulating Hormone 1.18 0.30 - 4.20 mcIUnit/mL Blood 04/22/2024 4:34 PM COMMANDING OFFICER [employer]AGE 04/22/2024 5:06 PM COMMANDING OFFICER GARAGE Damaris Bernabe MD LAB BLOOD ORDERABLE S Final Result Performing Organization Address City/[facility]/ZIP Co de Phone Number [facility] ([facility]) [address] [facility] Department [place] [address] * ECG 12 lead (04/22/2024 4:26 PM COMMANDING OFFICER GARAGE) 04/22/2024 4:26 PM COMMANDING OFFICER [employer]ARAGE Narrative [facility] - 04/23/2024 6:28 AM COMMANDING OFFICER GARAGE Vent Rate: 78 bpm RR Interval: 764 msec CA Interval: 156 msec QRS Duration: 95 msec QT Interval: 379 msec QTC Interval: 412 msec P-R-T [place]: 44 - 48 - 47 degrees IMPRESSION: [...] Bernabe MD ECG ORDERABLES Fin al Result [facility] [employer] * CT Abdomen Pelvis W Contrast (04/16/2024 10:56 PM COMMANDING OFFICER GARAGE) Anatomical Region Laterality Modality Body N/A Computed Tomogra phy 04/16/2024 11:1 1 PM COMMANDING OFFICER [employer]ARAGE Narrative 04/16/2024 11:13 PM COMMANDING OFFICER [employer]ARAGE EXAM DESCRIPTION: CT ABDOMEN PELVIS W CONTRAST [...] Roque Stiles M.D. KH: GURJIT Report ID: [id number] Reading Location: [place] [address] Procedure Note Roque Stiles MD - 04/16/2024 [...] Roque Stiles M.D. KH: GURJIT Report ID: [id number] Reading Location: [place] [address] Kunal Marks MD IMG CT PROCEDURES Final Result * (ABNORMAL) Urinalysis reflex to microscopic and culture Urine (04/16/2024 5:38 PM COMMANDING OFFICER [employer]AGE) Color, ur Yellow Yellow Clarity, ur Clear [...] tendency for uric acid stone formation. Source: [facility] [place] [email or web address] Current Interpretive Data was last revised on [...] [facility] ([facility]) Urine 04/16/2024 5:38 PM COMMANDING OFFICER GARAGE 04/16/2024 5:52 PM COMMANDING OFFICER GARAGE Paolo Cortez MD LAB MICROBIOLOGY - GENERAL O RDERABLES Final Result [facility] ([facility]) [address] [facility] [employer] [email or web address] [address] * POCT hCG, urine (04/16/2024 5:34 PM COMMANDING OFFICER [employer]ARAGE) HCG, ur, POC Negative Negative Lot Number [id number] QC Backgroud Clear Acceptable QC Control Line Acceptable Urine 04/16/2024 5:34 PM COMMANDING OFFICER GARAGE Paolo Cortez MD POINT OF CARE TEST ORDERABLE S Final Result * eGFR (04/16/2024 4:26 PM COMMANDING OFFICER [employer]ARAGE) eGFR >90 >=60 mL/min/1. 73 m2 Comment: [...] last reviewed 2021. Blood 04/16/2024 4:26 PM COMMANDING OFFICER G[employer]AGE 04/16/2024 4:30 PM COMMANDING OFFICER GARAGE Paolo Cortez MD LAB BLOOD ORDERABLES Final R esult [facility] ([facility]) [address] [facility] Department [email or web address] [address] * (ABNORMAL) Differential, auto (04/16/2024 4:26 PM COMMANDING OFFICER GARAGE) Neutrophil abs 9.5(H) 1.5 - 6.5 K/cumm [...] revised on 2017. Blood 04/16/2024 4:26 PM COMMANDING OFFICER GARAGE 04/16/2024 4:30 PM COMMANDING OFFICER GARAGE Paolo Cortez MD LAB BLOOD ORDERABLES Final R esult [facility] ([facility]) [address] [facility] [place] [address] * (ABNORMAL) CBC with auto differential (04/16/2024 4:26 PM COMMANDING OFFICER GARAGE) WBC 12.6(H) 3.8 - 9.9 K/cumm Hgb [...] blood specimen / Unknown 04/16/2024 4:26 PM COMMANDING OFFICER GARAGE 04/16/2024 4:30 PM COMMANDING OFFICER GARAGE Paolo Cortez MD LAB BLOOD ORDERABLES Final R esult [facility] ([facility]) [address] [facility] [place] [address] * Lipase (04/16/2024 4:26 PM COMMANDING OFFICER GARAGE) Lipase 20 10 - 99 Units/L Blood Venous blood specimen / Unknown 04/16/2024 4:26 PM COMMANDING OFFICER GARAGE 04/16/2024 4:30 PM COMMANDING OFFICER GARAGE us Paolo Cortez MD LAB BLOOD ORDERABLES Final R esult [facility] ([facility]) [address] [facility] [place] [address] * (ABNORMAL) Comprehensive metabolic panel (04/16/2024 4:26 PM COMMANDING OFFICER GARAGE) Sodium 139 135 - 145 mmol/L Potassium, [...] [facility] ([facility]) Blood 04/16/2024 4:26 PM COMMANDING OFFICER GARAGE 04/16/2024 4:30 PM COMMANDING OFFICER GARAGE Paolo Cortez MD LAB BLOOD ORDERABLES Final R esult Performing Organization Address City/[facility] Co de Phone Number [facility] ([facility]) [address] [facility] [place] [address] * ECG 12 lead (04/16/2024 4:22 PM COMMANDING OFFICER GARAGE) 04/16/2024 4:22 PM COMMANDING OFFICER GARAGE Narrative [facility] - 04/16/2024 4:53 PM COMMANDING OFFICER GARAGE Vent Rate: 112 bpm RR Interval: 533 msec CA Interval: 160 msec QRS Duration: 92 msec QT Interval: 321 msec QTC Interval: 387 msec P-R-T [place]: 58 - 65 - 60 degrees IMPRESSION: SINUS TACHYCARDIA INCOMPLETE RIGHT BUNDLE BRANCH BLOCK [90+ ms QRS DURATION, TERMINAL R IN V1/V2, 40+ ms S IN I/aVL/V4/V5/V6] ABNORMAL RHYTHM ECG Electronically Signed By: Jonatan Monte MD Paolo Cortez MD ECG ORDERABLES Final Result Performing Organization Address City/[facility] Co de Phone Number [facility] [employer] [facility] from Last 3 Months Insurance ID [facility] Care Teams Armature Connector Relationship Specialty Start Date End Date Dary Beltrán NP [address] [address] PCP - General Family Medicine 04/16/24
--- OUTSIDE RECORDS SUMMARY | 2024-06-25 01:35 | XMS_ITS | Continuity of Care Document ---
Author Organization [facility] Address [address] [place] [address] [place] [address] Phone Care Team Providers Care Cotton Classer Aide Name Role Phone Euceda OD, Maged Unavailable Unavailable Procedures Procedure Date Eye Exam, New Patient Refraction Eye Exam, New Patient Refraction Advance Directives Directive Yes / No Effective Date File Name No Information Encounters Encounter Description Practice Location Reason(s) For Visit Diagnoses Date Provider Providers Copied on Encounter [facility], [address] [place] [address] [address], [place], [place], [id number], tel:[phone] [address] [facility] No Information [phone] Euceda OD Maged. [address] [facility] [place] , [address], [place], [place], [facility], [place]. tel:[phone] [facility], [address] [place] [address] [address], [place], [place], [id number], tel:[phone] SEC [facility] [place] No Information [address]any. [address] [facility], [place], [place], [facility], [place]. tel:[phone] Family History Family Member Type Diagnosis Age At Onset No Information Payers Payer name Insurance type Covered alliance party ID Authoriza tiblank(s) [facility] Commercial CI [id number] [facility] SOI CI [id number] [place] [id number] Social History Type Description Quantity Date Captured [...]
--- OUTSIDE RECORDS SUMMARY | 2024-06-25 01:35 | XMS_ITS | Clinical Summary ---
Author Organization [address] l[address] Address [address] [place] [address] Care Team Providers Care Button Machine Operator Name Role Phone Dary Beltrán NP Primary Care Provider [phone] Allergies Active Allergy Reactions Criticality Noted Date [...] Department Care Team Description 04/22/2024 3:34 PM PRODUCT BUILDER - 04/22/2024 6:47 PM [facility] Emergency [facility] Emergency Department [address] [place] [address] Kunal Marks MD Ittiara, Verona Maierhofer, MD Anxiety (Primary Dx) Discharge Disposition: Discharge to home or self care 04/22/2024 3:14 PM PRODUCT BUILDER - 04/22/2024 11:59 PM PRODUCT BUILDER Hospital Encounter [facility] Emergency, Room R Discharge Disposition: Discharge to home or self care 04/22/2024 2:30 PM PRODUCT BUILDER Office Visit [facility] [address] [place] [address] Torrie Calles NP Chest pain, unspecified type (Primary Dx); Tachycardia 04/16/2024 8:13 PM PRODUCT BUILDER - 04/17/2024 12:09 AM PRODUCT BUILDER Emergency [facility] Emergency Department [address] [place] [address] Kunal Marks MD LUQ pain (Primary Dx) [...] on file Legal Sex Female 2:29 AM PRODUCT BUILDER Gender Identity Not on file Sexual Orientation Not on file Obstetrics History Para Term AB IAB SAB Ectopic Multiple Livin g Live Births 0 0 0 0 0 0 0 0 0 0 0 Growth Chart Information Age Height Weight Dbdqkd-qkn-qmkl th Percentile BMI Percentile Head Circum Head [...] Comments Blood Pressure 115/70 04/22/2024 6:15 PM PRODUCT BUILDER Pulse 83 04/22/2024 6:15 PM PRODUCT BUILDER Temperature 36.3 C (97.4 F) 04/22/2024 4:27 PM PRODUCT BUILDER Respiratory Rate 15 04/22/2024 6:15 PM PRODUCT BUILDER Oxygen Saturation 96% 04/22/2024 6:15 PM PRODUCT BUILDER Inhaled Oxygen Concentration - - Weight 95.7 kg (211 lb) 04/22/2024 3:44 PM PRODUCT BUILDER Height 172.7 cm (5' 8 ) 04/16/2024 4:04 PM PRODUCT BUILDER Body Mass Index 32.08 04/16/2024 4:04 PM PRODUCT BUILDER Plan of Treatment Health Maintenance Due Date [...] CHEST 1 VIEW ED 04/22/2024 4:52 PM PRODUCT BUILDER EGFR STAT 04/22/2024 4:38 PM PRODUCT BUILDER URINALYSIS, MICROSCOPIC ONLY STAT 04/22/2024 4:38 PM PRODUCT BUILDER DIFFERENTIAL AUTO STAT 04/22/2024 4:3 8 PM PRODUCT BUILDER DRUGS OF ABUSE SCREEN, URINE WITHOUT CONFIRMATION STAT 04/22/2024 4:38 PM PRODUCT BUILDER ETHANOL STAT 04/22/2024 4:38 PM PRODUCT BUILDER HCG, BLOOD, QUANTITATIVE STAT 04/22/2024 4:38 PM PRODUCT BUILDER TROPONIN T HIGH-SENSITIVITY STAT 04/22/2024 4:38 PM PRODUCT BUILDER COMPREHENSIVE METABOLIC PANEL STAT 04/22/2024 4:38 PM PRODUCT BUILDER CBC WITH AUTO DIFFERENTIAL STAT 04/22/2024 4:38 PM PRODUCT BUILDER URINALYSIS AND REFLEX TO MICROSCOPIC AND CULTURE STAT 04/22/2024 4:38 PM PRODUCT BUILDER TSH STAT 04/22/2024 4:34 PM PRODUCT BUILDER ECG 12-LEAD STAT 04/22/2024 4:[address] ABDOMEN PELVIS W CONTRAST ED 04/16/2024 10:56 PM PRODUCT BUILDER URINALYSIS AND REFLEX TO MICROSCOPIC AND CULTURE STAT 04/16/2024 5:38 PM PRODUCT BUILDER POCT HCG, URINE Routine 04/16/2024 5:34 PM PRODUCT BUILDER EGFR STAT 04/16/2024 4:26 PM PRODUCT BUILDER DIFFERENTIAL AUTO STAT 04/16/2024 4:2 6 PM PRODUCT BUILDER LIPASE STAT 04/16/2024 4:26 PM PRODUCT BUILDER COMPREHENSIVE METABOLIC PANEL STAT 04/16/2024 4:26 PM PRODUCT BUILDER CBC WITH AUTO DIFFERENTIAL STAT 04/16/2024 4:26 PM PRODUCT BUILDER ECG 12-LEAD STAT 04/16/2024 4:22 PM PRODUCT BUILDER from Last 3 Months Results * XR Chest 1 Vw Portable (04/22/2024 4:52 PM PRODUCT BUILDER) Anatomical Region Laterality Modality Body, Chest N/A Computed Radiogr aphy 04/22/2024 4:54 PM PRODUCT BUILDER Narrative 04/22/2024 4:54 PM PRODUCT BUILDER EXAM DESCRIPTION: XR CHEST 1 VIEW REASON FOR STUDY: chest pain Patient to ED via [facility] from [facility] for panic attack. EMS [...] signed by Roque CAGLE: GURJIT Report ID: [id number] Reading Location: [id number] Procedure Note Roque Stiles MD - 04/22/2024 EXAM DESCRIPTION: XR CHEST 1 VIEW REASON FOR STUDY: chest pain Patient to ED via [facility] from [facility] for panic attack. EMS [...] Roque Stiles M.D. KH: GURJIT Report ID: [id number] Reading Location: [id number] Damaris Bernabe MD IMG XR PROCEDURES F inal Result * Troponin T high-sensitivity (04/22/2024 4:38 PM PRODUCT BUILDER) Trop T hs <6 <=14 ng/L Comment: Interpretive Data For further hscTnT resources including the diagnostic algorithm and an aid in interpretation, copy and paste this link: https://nrl.testcatalog.org/show/hsTrop Current Interpretive Data last revised 2020. Blood 04/22/2024 4:38 PM PRODUCT BUILDER 04/22/2024 4:49 PM PRODUCT BUILDER Damaris Bernabe MD LAB BLOOD ORDERABLE S Final Result [facility] 1 [facility] Department of Laboratories [place], [place] [id number] * eGFR (04/22/2024 4:38 PM PRODUCT BUILDER) eGFR >90 >=60 mL/min/1. 73 m2 Comment: [...] last reviewed 2021. Blood 04/22/2024 4:38 PM PRODUCT BUILDER 04/22/2024 4:49 PM PRODUCT BUILDER us Damaris Bernabe MD LAB BLOOD ORDERABLE S Final Result [facility] ([place]) 1 [facility] Department [place] [address] * Differential, auto (04/22/2024 4:38 PM PRODUCT BUILDER) Neutrophil abs 6.5 1.5 - 6.5 K/cumm [...] revised on 2017. Blood 04/22/2024 4:38 PM PRODUCT BUILDER 04/22/2024 4:49 PM PRODUCT BUILDER us Damaris Bernabe MD LAB BLOOD ORDERABLE S Final Result [facility] ([place]) 1 [facility] Department [place] [address] * (ABNORMAL) Urinalysis reflex to microscopic and culture Urine (04/22/2024 4:38 PM PRODUCT BUILDER) Color, ur Yellow Yellow Clarity, ur Turbid(A) [...] for uric acid stone formation. Source: [facility] Current Interpretive Data was last revised on [...] [facility] ([place]) Urine 04/22/2024 4:38 PM PRODUCT BUILDER 04/22/2024 4:49 PM PRODUCT BUILDER us Damaris Bernabe MD LAB MICROBIOLOGY - GENERAL ORDERABLES Final Result Performing Organization Address City/[facility]/ZIP Co de Phone Number [facility] ([place]) 1 [facility] [address] * CBC with auto differential (04/22/2024 4:38 PM PRODUCT BUILDER) WBC 9.9 3.8 - 9.9 K/cumm Hgb [...] [facility] ([place]) Blood 04/22/2024 4:38 PM PRODUCT BUILDER 04/22/2024 4:49 PM PRODUCT BUILDER us Damaris Bernabe MD LAB BLOOD ORDERABLE S Final Result [facility] ([place]) 1 [facility] [place] [address] * (ABNORMAL) Drugs of Abuse Screen, Urine without Confirmation (04/22/2024 4:38 PM PRODUCT BUILDER) [facility] Amphetamine, ur Not Detected CutOff 500ng/mL [...] revised on 2017. Urine 04/22/2024 4:38 PM PRODUCT BUILDER 04/22/2024 4:49 PM PRODUCT BUILDER Narrative [facility] ([place]) - 04/22/2024 5:12 PM PRODUCT BUILDER Drug of Abuse screening is performed by immunoassay for medical purposes only. This is not to be used for Pain Management purposes. Damaris Bernabe MD LAB URINE ORDERABLE S Final Result [facility] ([place]) 1 [facility] [place] [address] * (ABNORMAL) Urinalysis, microscopic only (04/22/2024 4:38 PM PRODUCT BUILDER) WBC, ur 0-5 0 - 5 /HPF RBC, ur 0-2 0 - 2 /HPF [facility] ([place]) Epithelial cells, squamous, ur 11-20(A) 0 - 5 /HPF [facility] ([place]) Bacteria, ur 1+(A) [facility] ([place]) Mucous, ur Present(A) [facility] ([place]) Culture Reflex Comment Reflex conditions for urine culture (WBC >10) not met. [facility] ([place]) Urine 04/22/2024 4:38 PM PRODUCT BUILDER 04/22/2024 4:49 PM PRODUCT BUILDER Damaris Bernabe MD LAB URINE ORDERABLE S Final Result Performing Organization Address City/[facility]/ZIP Co de Phone Number [facility] ([place]) 1 [facility] [place] [address] * hCG, blood, quantitative (04/22/2024 4:38 PM PRODUCT BUILDER) hCG, quant <5.0 0.0 - 5.0 IUnits/L Comment: Interpretive Data Male: < 5 IU/L Non- premenopausal Female: <5 IU/L The Trista hCG Beta Quant assay procedure was used. Results from different manufacturers or methods may not be comparable. Serial testing should be performed using the same method. Interpretive Data was last revised on 2023 Blood 04/22/2024 4:38 PM PRODUCT BUILDER 04/22/2024 4:49 PM PRODUCT BUILDER Damaris Bernabe MD LAB BLOOD ORDERABLE S Final Result [facility] ([place]) 1 [facility] [place] [address] * Ethanol (04/22/2024 4:38 PM PRODUCT BUILDER) Ethanol <10 <=10 mg/dL Comment: Interpretive Data Legal limit of intoxication > or = 80 mg/dL Levels > or = 400 mg/dL are potentially TOXIC. Current interpretive data was last revised on 2018. Blood 04/22/2024 4:38 PM PRODUCT BUILDER 04/22/2024 4:49 PM PRODUCT BUILDER us Damaris Bernabe MD LAB BLOOD ORDERABLE S Final Result [facility] ([place]) 1 [facility] Department [place] [address] * (ABNORMAL) Comprehensive metabolic panel (04/22/2024 4:38 PM PRODUCT BUILDER) Pathologist [facility] Sodium 139 135 - 145 mmol/L Potassium, pl 3.3 3.3 - 4.9 mmol/L [facility] ([place]) Chloride 106 97 - 110 mmol/L [facility] ([place]) CO2 21(L) 22 - 32 mmol/L [facility] ([place]) Anion gap 12 2 - 15 mmol/L [facility] ([place]) BUN 7 6 - 25 mg/dL [facility] ([place]) Creatinine 0.63 0.60 - 1.10 mg/dL [facility] ([place]) Glucose 99 70 - 199 mg/dL [facility] ([place]) Comment: Interpretive Data Fasting glucose >/= [...] [facility] ([facility]) Blood 04/22/2024 4:38 PM PRODUCT BUILDER 04/22/2024 4:49 PM PRODUCT BUILDER Damaris Bernabe MD LAB BLOOD ORDERABLE S Final Result [facility] ([place]) 1 [facility] [place] [address] * TSH (04/22/2024 4:34 PM PRODUCT BUILDER) Thyroid Stimulating Hormone 1.18 0.30 - 4.20 mcIUnit/mL Blood 04/22/2024 4:34 PM PRODUCT BUILDER 04/22/2024 5:06 PM PRODUCT BUILDER Damaris Bernabe MD LAB BLOOD ORDERABLE S Final Result [facility] ([place]) 1 [facility] [address] * ECG 12 lead (04/22/2024 4:26 PM PRODUCT BUILDER) 04/22/2024 4:26 [address] [facility] - 04/23/2024 6:28 AM PRODUCT BUILDER Vent Rate: 78 bpm RR Interval: 764 msec LA Interval: 156 msec QRS Duration: 95 msec QT Interval: 379 msec QTC Interval: 412 msec P-R-T [place]: 44 - 48 - 47 degrees IMPRESSION: [...] Bernabe MD ECG ORDERABLES Fin al Result [employer] [facility] * CT Abdomen Pelvis W Contrast (04/16/2024 10:56 PM PRODUCT BUILDER) Anatomical Region Laterality Modality Body N/A Computed Tomogra phy 04/16/2024 11:1 1 PM PRODUCT BUILDER Narrative 04/16/2024 11:13 PM PRODUCT BUILDER EXAM DESCRIPTION: CT ABDOMEN PELVIS W CONTRAST [...] Electronically signed by Roque CAGLE Report ID: [id number] Reading Location: [place] [address] Procedure Note Roque Stiles MD - 04/16/2024 [...] signed by Roque CAGLE: GURJIT Report ID: [id number] Reading Location: [place] [address] Kunal Marks MD IMG CT PROCEDURES Final Result * (ABNORMAL) Urinalysis reflex to microscopic and culture Urine (04/16/2024 5:38 PM PRODUCT BUILDER) Color, ur Yellow Yellow Clarity, ur Clear [...] for uric acid stone formation. Source: [facility] Current Interpretive Data was last revised on [...] [facility] ([facility]) Urine 04/16/2024 5:38 PM PRODUCT BUILDER 04/16/2024 5:52 PM PRODUCT BUILDER Paolo Cortez MD LAB MICROBIOLOGY - GENERAL O RDERABLES Final Result [facility] ([place]) 1 [facility] Department of Laboratories [place], [place] [id number] * POCT hCG, urine (04/16/2024 5:34 PM PRODUCT BUILDER) HCG, ur, POC Negative Negative Lot Number [id number] QC Backgroud Clear Acceptable QC Control Line Acceptable Urine 04/16/2024 5:34 PM PRODUCT BUILDER Paolo Cortez MD POINT OF CARE TEST ORDERABLE S Final Result * eGFR (04/16/2024 4:26 PM PRODUCT BUILDER) eGFR >90 >=60 mL/min/1. 73 m2 Comment: [...] last reviewed 2021. Blood 04/16/2024 4:26 PM PRODUCT BUILDER 04/16/2024 4:30 PM PRODUCT BUILDER Paolo Cortez MD LAB BLOOD ORDERABLES Final R esult [facility] ([place]) 1 [facility] Department of Laboratories [place], [place] [id number] * (ABNORMAL) Differential, auto (04/16/2024 4:26 PM PRODUCT BUILDER) Neutrophil abs 9.5(H) 1.5 - 6.5 K/cumm Imm gran abs 0.0 0.0 - 0.1 K/cumm [facility] ([place]) Lymphocyte abs 2.5 0.8 - 3.3 K/cumm [facility] ([place]) Monocyte abs 0.5 0.2 - 0.8 K/cumm [facility] ([place]) Eosinophil abs 0.1 0.0 - 0.5 K/cumm [...] revised on 2017. Blood 04/16/2024 4:26 PM PRODUCT BUILDER 04/16/2024 4:30 PM PRODUCT BUILDER us Paolo Cortez MD LAB BLOOD ORDERABLES Final R esult [facility] ([place]) 1 [facility] [place] [address] * (ABNORMAL) CBC with auto differential (04/16/2024 4:26 PM PRODUCT BUILDER) WBC 12.6(H) 3.8 - 9.9 K/cumm Hgb [...] blood specimen / Unknown 04/16/2024 4:26 PM PRODUCT BUILDER 04/16/2024 4:30 PM PRODUCT BUILDER Paolo Cortez MD LAB BLOOD ORDERABLES Final R esult [facility] ([place]) 1 [facility] [address] * Lipase (04/16/2024 4:26 PM PRODUCT BUILDER) Lipase 20 10 - 99 Units/L Blood Venous blood specimen / Unknown 04/16/2024 4:26 PM PRODUCT BUILDER 04/16/2024 4:30 PM PRODUCT BUILDER Paolo Cortez MD LAB BLOOD ORDERABLES Final R esult [facility] ([place]) 1 [facility] [address] * (ABNORMAL) Comprehensive metabolic panel (04/16/2024 4:26 PM PRODUCT BUILDER) Sodium 139 135 - 145 mmol/L Potassium, [...] [facility] ([place]) Blood 04/16/2024 4:26 PM PRODUCT BUILDER 04/16/2024 4:30 PM PRODUCT BUILDER us Paolo Cortez MD LAB BLOOD ORDERABLES Final R esult [facility] ([place]) 1 [facility] [place] [address] * ECG 12 lead (04/16/2024 4:22 PM PRODUCT BUILDER) 04/16/2024 4:22 [address] [facility] - 04/16/2024 4:53 PM PRODUCT BUILDER Vent Rate: 112 bpm RR Interval: 533 msec LA Interval: 160 msec QRS Duration: 92 msec QT Interval: 321 msec QTC Interval: 387 msec P-R-T [place]: 58 - 65 - 60 degrees IMPRESSION: SINUS TACHYCARDIA INCOMPLETE RIGHT BUNDLE BRANCH BLOCK [90+ ms QRS DURATION, TERMINAL R IN V1/V2, 40+ ms S IN I/aVL/V4/V5/V6] ABNORMAL RHYTHM ECG Electronically Signed By: Jonatan Monte MD Paolo Cortez MD ECG ORDERABLES Final Result [facility] from Last 3 Months Insurance [employer] Care Teams Button Machine Operator Relationship Specialty Start Date End Date Dary Beltrán NP [address] [address] PCP - General Family Medicine 04/16/24
[2024-06-25 08:12] VITALS: BMI 31.0
[2024-06-25 08:14] VITALS: BP 130/79; PULSE 103; RESP 16; TEMP 36.4; O2SAT 100
[2024-06-25] MEDS: LACTATED RINGERS 1,000 ML 150 ML IV CONT (08:19)
--- NOTE | 2024-06-25 08:46 | P.PNAN_ITS ---
Anes - Initial Pre Proc Eval Procedure: Operation Date: 06/25/24 07:30 Proposed Procedures p Esophagogastroduodenoscopy & Colonoscopy - Vu Jacinto MD Date/Time: 06/25/24 08:46 Surgeon: Vu Jacinto MD Pre Op Diagnosis: Vomiting,Nausea,Left upper quad pain, Patient Data Age: 18 Gender: F Height: 1.73 m Weight: 92.5 kg Last Vital Signs Temp 97.6 F 06/25/24 08:14 Pulse 103 H 06/25/24 08:14 Resp 16 06/25/24 08:14 BP 130/79 06/25/24 08:14 Pulse Ox 100 06/25/24 08:14 Allergies Allergy/AdvReac Type Severity Reaction Status Date / Time amitriptyline Allergy Swelling Verified 06/25/24 08:11 of the Eye Home Medications ?Medication ?Instructions ?Recorded ?Confirmed ?Type naproxen 500 mg tablet (Naprosyn) 500 mg PO BID PRN pain #14 tabs 01/12/24 06/20/24 Rx levonorgestrel 14 mcg/24 hr (up to 1 device intrauterine ONCE 03/06/24 06/25/24 History 3 yrs) 13.5 mg intrauterine device (Christal) ondansetron 4 mg disintegrating 4 mg PO Q6H PRN nausea and 04/12/24 06/20/24 Rx tablet vomiting #30 tabs propranolol 20 mg tablet 20 mg PO QID PRN anxiety #120 tabs 05/03/24 06/20/24 Rx hydrocortisone acetate 30 mg 30 mg RECTAL BID #12 ea 05/23/24 06/20/24 Rx rectal suppository Patient hx anesthesia problems: none Family hx anesthesia problems: none Results Review: All pre-operative results and documents have been reviewed as part of the pre- operative evaluation. [facility], [facility] Past Medical History Medical History Change in bowel habits Vomiting LUQ pain LLQ pain Encounter to establish care Vaginal discharge Abdominal pain Anxiety disorder Surgical History Surgical History No pertinent past surgical history Family History Family History Mother Depression Anxiety COPD (chronic obstructive pulmonary disease) Alzheimer dementia H/O vein stripping CHF (congestive heart failure) Alcoholism Sibling Depression Anxiety Sibling Anxiety Depression Asthma Grandparent Anxiety Depression Hypertension Other Attention deficit hyperactivity disorder Social History Social History (Updated 06/10/24 @ 14:09 by GADIEL Hurst, ) Smoking status: Former smoker Alcohol intake: never Substance use: current Substance use type: marijuana Other substance usage details: smokes marijuana daily Do You Feel Safe in your Home?: Yes Lack of Transportation: No Lack of Food: Never True Current Housing: I Have Housing Concerned About Future Housing: No Difficulty Paying Gas/Electric Bills: No Difficulty Paying for Meds: No Currently Unemployed: No Education: High School Diploma/GED Difficulty w/ Childcare or Family Care: No Living arrangements: with family Additional living arrangements comments: foster parents Gender identity (if verbalized by the patient): Female Sexual Orientation (if Verbalized by the Patient): Bisexual Spiritual care concerns: No Agree to blood products: Yes Anes - Eval Final PreProcedure Day of Procedure 06/25/24 08:46 Patient weight: obese Heart: regular rate and rhythm Lungs: clear to auscultation Airway: Mallampati scale class II Neurological: alert and oriented Last oral intake: >/= 8 hours ASA classification: II Emergent: no Anesthetic plan: proceed Anesthesia type and monitoring: general GIVS and standard monitoring Results Review: All pre-operative results and documents have been reviewed as part of the pre- operative evaluation. Informed Consent: The patient's anesthetic plan and its attendant risks and benefits were discussed with the patient/family/POA. Questions were solicited and answers provided to the satisfaction of the patient/family/POA.
--- NOTE | 2024-06-25 08:47 | PM.HPGS ---
History of Present Illness History of Present Illness Consent: Risks, benefits, and alternatives have been discussed and questions answered. Patient agrees to proceed with procedure. Chief complaint: Vomiting,Nausea,Left upper quad pain, Narrative: Briana Mitchell is a 18 year old female with nausea and intermittent abdominal pain, also has been having loose stools with mucus since February. She never had scopes. She completed bowel prep and then noted some blood in stools and had more pain than usual, she came to ER few hours ago, CT scan showed possible colitis. Review of Systems Review of Systems: All systems reviewed & are unremarkable except as noted in HPI and below PMFSH Past Medical History Medical History Change in bowel habits Vomiting LUQ pain LLQ pain Encounter to establish care Vaginal discharge Abdominal pain Anxiety disorder Surgical History Surgical History No pertinent past surgical history Family History Family History Mother Depression Anxiety COPD (chronic obstructive pulmonary disease) Alzheimer dementia H/O vein stripping CHF (congestive heart failure) Alcoholism Sibling Depression Anxiety Sibling Anxiety Depression Asthma Grandparent Anxiety Depression Hypertension Other Attention deficit hyperactivity disorder Social History Social History (Updated 06/10/24 @ 14:09 by GADIEL Hurst, ) Smoking status: Former smoker Alcohol intake: never Substance use: current Substance use type: marijuana Other substance usage details: smokes marijuana daily Do You Feel Safe in your Home?: Yes Lack of Transportation: No Lack of Food: Never True Current Housing: I Have Housing Concerned About Future Housing: No Difficulty Paying Gas/Electric Bills: No Difficulty Paying for Meds: No Currently Unemployed: No Education: High School Diploma/GED Difficulty w/ Childcare or Family Care: No Living arrangements: with family Additional living arrangements comments: foster parents Gender identity (if verbalized by the patient): Female Sexual Orientation (if Verbalized by the Patient): Bisexual Spiritual care concerns: No Agree to blood products: Yes Meds Home Medications and Allergies Home Medications ?Medication ?Instructions ?Recorded ?Confirmed ?Type naproxen 500 mg tablet (Naprosyn) 500 mg PO BID PRN pain #14 tabs 01/12/24 06/20/24 Rx levonorgestrel 14 mcg/24 hr (up to 1 device intrauterine ONCE 03/06/24 06/25/24 History 3 yrs) 13.5 mg intrauterine device (Christal) ondansetron 4 mg disintegrating 4 mg PO Q6H PRN nausea and 04/12/24 06/20/24 Rx tablet vomiting #30 tabs propranolol 20 mg tablet 20 mg PO QID PRN anxiety #120 tabs 05/03/24 06/20/24 Rx hydrocortisone acetate 30 mg 30 mg RECTAL BID #12 ea 05/23/24 06/20/24 Rx rectal suppository Allergies Allergy/AdvReac Type Severity Reaction Status Date / Time amitriptyline Allergy Swelling Verified 06/25/24 08:11 of the Eye Vital Signs Vital Signs - 24 hr 06/25/24 08:14 Temperature 97.6 F Pulse Rate 103 H Respiratory Rate 16 Blood Pressure 130/79 Pulse Oximetry 100 Exam Const: General: comfortable and no acute distress HENMT: Face/Nose/Sinus: Normal nares present Eyes: General: appearance normal, both eyes and all related structures Neck: Neck: no JVD Resp: Auscultation: clear to auscultation bilaterally Cardio: Rate: regular rate Rhythm: regular rhythm GI: Inspection: non-distended GI Palp: Yes Soft to palpation Skin: General skin exam: normal color Neuro: General: gait normal Speech: normal speech Extrem: General: normal to inspection Psych: Mental Status: mental status grossly normal Assessment and Plan Assessment and plan (1) Chronic nausea: Code(s): R11.0 - Nausea Status: Acute Assessment and Plan: egd with bx (2) Loose stools: Code(s): R19.5 - Other fecal abnormalities Status: Acute Assessment and Plan: colonoscopy with bx ? colitis, more symptomatic since February (3) IBS (irritable bowel syndrome): Qualifiers: Irritable bowel syndrome type: with both diarrhea and constipation Qualified Code(s): K58.2 - Mixed irritable bowel syndrome Code(s): K58.9 - Irritable bowel syndrome, unspecified Status: Acute
--- NOTE | 2024-06-25 09:11 | SUR.OPER ---
EGD: start 856, end 900 Colonoscopy: start 904, end 912
[2024-06-25 09:19] VITALS: BP 91/54; PULSE 77; RESP 19; O2SAT 96
[2024-06-25 09:29] VITALS: BP 87/66; PULSE 77; RESP 19; O2SAT 100
[2024-06-25 09:39] VITALS: BP 98/70; PULSE 67; RESP 20; O2SAT 100
[2024-06-25 09:47] VITALS: BP 111/77; PULSE 71; RESP 18; O2SAT 100
== END 2024-06-25 10:05 | disposition home or self-care (01) ==
PROVIDERS: PCP Nurse Practitioner Family; Referring Provider Nurse Practitioner Family; Visit Provider Internal Medicine Gastroenterology
PROC: 0DJ08ZZ Inspection of Upper Intestinal Tract, Via Natural or Artificial Opening Endoscopic (ICD-10-PCS; CPT 45378; principal; 2024-06-25 07:30)
DX: K21.9 Gastro-esophageal reflux disease without esophagitis (principal); F41.9 Anxiety disorder, unspecified; Z79.1 Long term (current) use of non-steroidal anti-inflammatories (NSAID); F12.90 Cannabis use, unspecified, uncomplicated; Z87.891 Personal history of nicotine dependence; Z82.49 Family history of ischemic heart disease and other diseases of the circulatory system
CPT/HCPCS: 43239; 45380; 88305; J2003; J2704; J7120

== ENCOUNTER 2024-06-25 04:33 | Emergency (ER) | payer OTHER, SELFPAY ==
--- NOTE | ~2024-06-25 | CT_ITS ---
CT of the Abdomen and Pelvis: Indication: GI bleed Technique: 2.5 mm axial scans were obtained through the abdomen and pelvis following intravenous adm inistration of 100 cc of Omnipaque 350. Dose reduction technique was used on this scan by utilizing a utomated exposure control and iterative reconstruction technique. The dose-length product (DLP) was 8 11.53 mGy-cm. COMPARISON: 04/05/2024 Findings: Scans through the lung bases are unremarkable. The liver, spleen, pancreas, gallbladder, adrenals and kidneys are within normal limits. No evidence of aortic aneurysm. No lymphadenopathy. There is extensive wall thickening of the descending colon, sigmoid colon, and rectum. No bowel obstr uction. No abscess evident. Images through the pelvis were performed. Urinary bladder unremarkable. IUD in place. Small amount of pelvic ascites present. Impression: Extensive wall thickening of the ascending colon;, and rectum. Findings are suspicious for ulcerative colitis or other inflammatory bowel disease or colitis. Small amount of pelvic ascites. Reviewed, dictated and finalized at [facility]. Impression: Extensive wall thickening of the ascending colon;, and rectum. Findings are negra picious for ulcerative colitis or other inflammatory bowel disease or colitis. Small amount of pelvic ascites.
[2024-06-25 04:30] VITALS: BP 130/92; PULSE 124; RESP 17; TEMP 36.8; O2SAT 100
--- NOTE | 2024-06-25 04:37 | ECG_ITS ---
Test Date: 2024-06-25 04:41:24 Measurements Intervals [place] Rate: 111 P: 0 LA: 0 QRS: 63 QRSD: 97 T: 61 QT: 313 QTc: 427 Interpretive Statements SINUS TACHYCARDIA WITH SINUS ARRHYTHMIA BASELINE ARTIFACT- I, II, AVR, AVL, V1-V2 BORDERLINE ECG No previous ECG available for comparison Electronically Signed On 06-25-2024 06:18:29 CDT by Vinay Rodgers D.O.
[2024-06-25 04:38] VITALS: BP 130/90; PULSE 138; RESP 19; O2SAT 100
--- NOTE | 2024-06-25 04:48 | ED.GIBLEED ---
HPI - GI Bleed General Chief complaint: GI Bleed Stated complaint: bloody stool Time Seen by Provider: 06/25/24 04:44 Source: patient, EMS and RN notes reviewed Mode of arrival: EMS Limitations: no limitations History of Present Illness HPI Narrative: Patient presents with bloody bowel movements. She has been having diarrhea and LUQ abdominal pain since February and was prepping for a colonoscopy which she is to undergo this morning at 6:00 a.m. with gastroenterology. She took the MiraLax and another prep medication. She notes that she was supposed to take magnesium but she fell asleep. When she woke up she was having abdominal pain and felt clammy. She started having bowel movements and there was blood in them. Patient states she was passing large clots. The picture shows thin clear to yellow stool in the toilet bowl with small red clots. Related Data Home Medications ?Medication ?Instructions ?Recorded ?Confirmed ?Last Taken ?Type levonorgestrel 14 mcg/24 hr (up to 1 device intrauterine ONCE 03/06/24 06/25/24 06/25/24 History 3 yrs) 13.5 mg intrauterine device (Christal) Allergies Allergy/AdvReac Type Severity Reaction Status Date / Time amitriptyline Allergy Swelling Verified 06/25/24 08:11 of the Eye [facility] Past Medical History Medical History Change in bowel habits Vomiting LUQ pain LLQ pain Encounter to establish care Vaginal discharge Abdominal pain Anxiety disorder Surgical History Surgical History No pertinent past surgical history Family History Family History Mother Depression Anxiety COPD (chronic obstructive pulmonary disease) Alzheimer dementia H/O vein stripping CHF (congestive heart failure) Alcoholism Sibling Depression Anxiety Sibling Anxiety Depression Asthma Grandparent Anxiety Depression Hypertension Other Attention deficit hyperactivity disorder Social History Social History (Updated 06/10/24 @ 14:09 by GADIEL Hurst, ) Smoking status: Former smoker Alcohol intake: never Substance use: current Substance use type: marijuana Other substance usage details: smokes marijuana daily Do You Feel Safe in your Home?: Yes Lack of Transportation: No Lack of Food: Never True Current Housing: I Have Housing Concerned About Future Housing: No Difficulty Paying Gas/Electric Bills: No Difficulty Paying for Meds: No Currently Unemployed: No Education: High School Diploma/GED Difficulty w/ Childcare or Family Care: No Living arrangements: with family Additional living arrangements comments: foster parents Gender identity (if verbalized by the patient): Female Sexual Orientation (if Verbalized by the Patient): Bisexual Spiritual care concerns: No Agree to blood products: Yes Exam Narrative: GENERAL: well-nourished, \ in mild acute distress. Seated on bedside commode. HEAD: Normocephalic, atraumatic. EYES: Non injected, non icteric ENT: Nares clear, no rhinorrhea or epistaxis. NECK: Supple. CHEST: Speaking in full sentences. No respiratory distress. HEART: Tachycardic rate and rhythm. . ABDOMEN: Soft, nondistended. EXTREMITIES: Normal range of motion. No lower extremity edema. SKIN: No rash, Initially diaphoresis noted by RN, improving on my exam NEURO: No focal deficits. Alert and oriented x3. PSYCH: Normal mood and affect. Course Vital Signs Vital signs: Vital Signs Temperature 98.2 F 06/25/24 04:30 Pulse Rate 124 H 06/25/24 04:30 Respiratory Rate 17 06/25/24 04:30 Blood Pressure 130/92 H 06/25/24 04:30 Pulse Oximetry 100 06/25/24 04:30 Oxygen Delivery Room Air 06/25/24 04:30 Temperature 98.2 F 06/25/24 04:30 Pulse Rate 82 06/25/24 07:49 Respiratory Rate 16 06/25/24 07:49 Blood Pressure 125/80 06/25/24 07:49 Pulse Oximetry 98 06/25/24 07:49 Oxygen Delivery Room Air 06/25/24 04:30 MDM - GI Bleed MDM Narrative Medical decision making narrative: Patient presents with concern for GI bleed. Has been having diarrhea since February and intermittent LUQ pain. Had been undergoing bowel prep overnight in anticipation of colonoscopy this morning with GI. In the emergency department she is afebrile with vital signs notable for significant tachycardia. Blood pressure is initially with slight elevation in diastolic but similar on subsequent, notably not hypotensive. Will give 1 L IV fluids, 4 mg morphine. . Mild leukocytosis. She is not anemic. 4 hour H&H ordered. Mild hypokalemia. Repletion ordered. Magnesium normal. Her lactic acid is elevated. Another L IV fluids ordered but her heart rate has normalized 82. CT as below. Discussed with Dr Ocampo. He states if patient stable and willing, could still complete colonoscopy this morning since she has done the prep. Discussed with patient and she notes she is feeling better. Would like to proceed with colonoscopy but requesting to keep the IV in place if possible. Patient discharged and transported with RN/tech supervision to [facility] pre op area. Advised follow up with GI. Differential Diagnosis Differential diagnosis: Likely hemorrhoids, infectious diarrhea, esophageal varices, gastritis, Upper gastrointestinal hemorrhage, Lower gastrointestinal hemorrhage, hematochezia, melena, anal fissure and other (IBS, IBD (Crohns, ulcerative colitis)) Lab Data Attestation: I reviewed the patient's lab results. 06/25/24 04:41 06/25/24 04:40 Labs: Lab Results 06/25/24 06/25/24 06/25/24 Range/Units 04:40 04:41 04:49 WBC 11.2 H (4.5-10.0) K/mm3 RBC 4.73 (4.2-5.4) M/mm3 Hgb 14.2 (12.0-15.0) g/dL Hct 42.8 (37.0-47.0) % MCV 90.5 (80-100) fl MCH 30.0 (26-34) pg MCHC 33.2 (32-36) g/dl RDW 13.0 (11.5-14.5) % Plt Count 191 (150-375) k/mm3 MPV 10.6 H (7.4-10.4) fl Immature Gran % (Auto) 0.3 (0-0.5) % Neut % (Auto) 69.7 (45.5-73.1) % Lymph % (Auto) 25.2 (18.3-44.2) % Dickinson % (Auto) 4.1 (2.6-8.5) % Eos % (Auto) 0.4 (0-4.4) % Baso % (Auto) 0.3 (0.2-1.2) % Lymph # (Auto) 2.81 (0.9-3.2) K/mm3 Dickinson # (Auto) 0.5 (0.1-0.6) K/mm3 Eos # (Auto) 0.0 (0-0.3) K/mm3 Baso # (Auto) 0.0 (0.0-0.1) K/mm3 Abs Immat Gran (auto) 0.03 (0.00-0.031) K/mm3 Absolute Neuts (auto) 7.8 H (1.3-6.7) K/mm3 Absolute Nucleated RBC 0.000 (0.0-0.012) K/mm3 Nucleated RBC % 0.0 (0.0-0.2) % PT 14.1 (11.1-14.7) Seconds INR 1.1 APTT 26.7 (22.3-36.8) Seconds Sodium 138 (134-143) mmol/L Potassium 3.2 L (3.4-5.0) mmol/L Chloride 105 (98-107) mmol/L Carbon Dioxide 19 L (22-30) mmol/L Anion Gap 14 H (4-12) mmol/L BUN 8 (8-21) mg/dL Creatinine 0.61 L (0.7-1.0) mg/dL Estim Creat Clear Calc 151 ml/min Estimated GFR > 60 (59 - ) Glucose 122 H (65-110) mg/dL Lactic Acid 3.2 H (0.7-2.0) mmol/L Calcium 9.5 (8.9-10.7) mg/dL Magnesium 1.7 (1.6-2.3) mg/dL Total Bilirubin 1.0 (0.2-1.3) mg/dL AST 29 (14-36) U/L ALT 26 (6-35) U/L Alkaline Phosphatase 96 (45-116) U/L Total Protein 8.0 (6.3-8.6) g/dL Albumin 4.6 (3.7-5.6) g/dL Blood Type O Negative Antibody Screen Negative Imaging Data Radiologist's impression: ssion: Extensive wall thickening of the ascending colon;, and rectum. Findings are suspicious for ulcerative colitis or other inflammatory bowel disease or colitis. Small amount of pelvic ascites. ECG Data EKG #1: Attestation: I personally reviewed and interpreted this ECG as follows: ECG completion date: 06/25/24 ECG completion time: 04:41 Interpretation: Pre populated EKG algorithm suggests atrial fibrillation with rapid ventricular response however there are clearly P-waves that preceded QRS complexes in QRS complexes that follow P-waves thus this is sinus tachycardia at a rate of 111 beats per minute. Good R-wave progression across the precordial leads. No T-wave inversions. Discharge Plan Discharge Clinical Impression: Bloody stool, Hypokalemia, Colonoscopy planned Patient Disposition: Home Condition: Stable Instructions: Antibiotic Form, Gastrointestinal Bleeding (ED), Hypokalemia (ED), Colonoscopy (DC) Additional Instructions: Your CT scan was concerning for inflammatory process for which proceeding with the colonoscopy will be very useful. You are being discharged home but really will be transported to the pre-op/endoscopy area with your IV remaining in place to continue with the plan of getting your colonoscopy today. You will follow-up with your security systems administrator and primary care physician. Return to the emergency department with any new or worsening symptoms. You were not anemic on your initial blood draw. Patient Language: Kiswahili Prescriptions: No Action propranolol 20 mg tablet 20 mg PO QID PRN (Reason: anxiety) Qty: 120 0RF Christal 14 mcg/24 hr (3 yrs) 13.5 mg intrauterine device 1 device intrauterine ONCE Rx Instructions: as a single dose ondansetron 4 mg tablet,disintegrating 4 mg PO Q6H PRN (Reason: nausea and vomiting) Qty: 30 0RF naproxen [Naprosyn] 500 mg tablet 500 mg PO BID PRN (Reason: pain) Qty: 14 0RF hydrocortisone acetate 30 mg suppository 30 mg RECTAL BID Qty: 12 0RF hyoscyamine sulfate [Levsin] 0.125 mg tablet 0.125 mg PO TID PRN (Reason: cramping) Qty: 60 0RF Follow-up/Referrals: Dary Beltrán APRN [Primary Care Provider] - Vu Jacinto MD [Physician] - (Gastroenterology) Stand Alone Forms: Work/School Release IP Time of Disposition: 07:33
--- OUTSIDE RECORDS SUMMARY | 2024-06-25 04:52 | XMS_ITS | Clinical Summary ---
Author Organization [address] lto Address [address] [place] [address] Care Team Providers Care Bow Machine Operator Name Role Phone Dary Beltrán NP Primary Care Provider [phone] Allergies Active Allergy Reactions Criticality Noted Date [...] Department Care Team Description 04/22/2024 3:34 PM ACCREDITED LEGAL SECRETARY - 04/22/2024 6:47 PM [facility] Emergency [facility] Emergency Department [address] [place] [address] Kunal Marks MD Ittiara, Verona Maierhofer, MD Anxiety (Primary Dx) Discharge Disposition: Discharge to home or self care 04/22/2024 3:14 PM ACCREDITED LEGAL SECRETARY - 04/22/2024 11:59 PM ACCREDITED LEGAL SECRETARY Hospital Encounter [facility] Emergency, Room R Discharge Disposition: Discharge to home or self care 04/22/2024 2:30 PM ACCREDITED LEGAL SECRETARY Office Visit [facility] [place] [address] [place] [address] Torrie Calles NP Chest pain, unspecified type (Primary Dx); Tachycardia 04/16/2024 8:13 PM ACCREDITED LEGAL SECRETARY - 04/17/2024 12:09 AM ACCREDITED LEGAL SECRETARY Emergency [facility] Emergency Department [address] [place] [address] Kunal Marks MD LUQ pain (Primary Dx) [...] on file Legal Sex Female 2:29 AM ACCREDITED LEGAL SECRETARY Gender Identity Not on file Sexual Orientation Not on file Obstetrics History Para Term AB IAB SAB Ectopic Multiple Livin g Live Births 0 0 0 0 0 0 0 0 0 0 0 Growth Chart Information Age Height Weight Jdktgn-pzc-ltta th Percentile BMI Percentile Head Circum Head [...] Comments Blood Pressure 115/70 04/22/2024 6:15 PM ACCREDITED LEGAL SECRETARY Pulse 83 04/22/2024 6:15 PM ACCREDITED LEGAL SECRETARY Temperature 36.3 C (97.4 F) 04/22/2024 4:27 PM ACCREDITED LEGAL SECRETARY Respiratory Rate 15 04/22/2024 6:15 PM ACCREDITED LEGAL SECRETARY Oxygen Saturation 96% 04/22/2024 6:15 PM ACCREDITED LEGAL SECRETARY Inhaled Oxygen Concentration - - Weight 95.7 kg (211 lb) 04/22/2024 3:44 PM ACCREDITED LEGAL SECRETARY Height 172.7 cm (5' 8 ) 04/16/2024 4:04 PM ACCREDITED LEGAL SECRETARY Body Mass Index 32.08 04/16/2024 4:04 PM ACCREDITED LEGAL SECRETARY Plan of Treatment Health Maintenance Due Date [...] CHEST 1 VIEW ED 04/22/2024 4:52 PM ACCREDITED LEGAL SECRETARY EGFR STAT 04/22/2024 4:38 PM ACCREDITED LEGAL SECRETARY URINALYSIS, MICROSCOPIC ONLY STAT 04/22/2024 4:38 PM ACCREDITED LEGAL SECRETARY DIFFERENTIAL AUTO STAT 04/22/2024 4:3 8 PM ACCREDITED LEGAL SECRETARY DRUGS OF ABUSE SCREEN, URINE WITHOUT CONFIRMATION STAT 04/22/2024 4:38 PM ACCREDITED LEGAL SECRETARY ETHANOL STAT 04/22/2024 4:38 PM ACCREDITED LEGAL SECRETARY HCG, BLOOD, QUANTITATIVE STAT 04/22/2024 4:38 PM ACCREDITED LEGAL SECRETARY TROPONIN T HIGH-SENSITIVITY STAT 04/22/2024 4:38 PM ACCREDITED LEGAL SECRETARY COMPREHENSIVE METABOLIC PANEL STAT 04/22/2024 4:38 PM ACCREDITED LEGAL SECRETARY CBC WITH AUTO DIFFERENTIAL STAT 04/22/2024 4:38 PM ACCREDITED LEGAL SECRETARY URINALYSIS AND REFLEX TO MICROSCOPIC AND CULTURE STAT 04/22/2024 4:38 PM ACCREDITED LEGAL SECRETARY TSH STAT 04/22/2024 4:34 PM ACCREDITED LEGAL SECRETARY ECG 12-LEAD STAT 04/22/2024 4:26 PM ACCREDITED LEGAL SECRETARY CT ABDOMEN PELVIS W CONTRAST ED 04/16/2024 10:56 PM ACCREDITED LEGAL SECRETARY URINALYSIS AND REFLEX TO MICROSCOPIC AND CULTURE STAT 04/16/2024 5:38 PM ACCREDITED LEGAL SECRETARY POCT HCG, URINE Routine 04/16/2024 5:34 PM ACCREDITED LEGAL SECRETARY EGFR STAT 04/16/2024 4:26 PM ACCREDITED LEGAL SECRETARY DIFFERENTIAL AUTO STAT 04/16/2024 4:2 6 PM ACCREDITED LEGAL SECRETARY LIPASE STAT 04/16/2024 4:26 PM ACCREDITED LEGAL SECRETARY COMPREHENSIVE METABOLIC PANEL STAT 04/16/2024 4:26 PM ACCREDITED LEGAL SECRETARY CBC WITH AUTO DIFFERENTIAL STAT 04/16/2024 4:26 PM ACCREDITED LEGAL SECRETARY ECG 12-LEAD STAT 04/16/2024 4:22 PM ACCREDITED LEGAL SECRETARY from Last 3 Months Results * XR Chest 1 Vw Portable (04/22/2024 4:52 PM ACCREDITED LEGAL SECRETARY) Anatomical Region Laterality Modality Body, Chest N/A Computed Radiogr aphy 04/22/2024 4:54 PM ACCREDITED LEGAL SECRETARY Narrative 04/22/2024 4:54 PM ACCREDITED LEGAL SECRETARY EXAM DESCRIPTION: XR CHEST 1 VIEW REASON FOR STUDY: chest pain Patient to ED via [facility] EMS from [facility] for panic attack. EMS reports [...] signed by Roque CAGLE: GURJIT Report ID: [id number] Reading Location: [id number] Procedure Note Roque Stiles MD - 04/22/2024 EXAM DESCRIPTION: XR CHEST 1 VIEW REASON FOR STUDY: chest pain Patient to ED via [facility] EMS from [facility] for panic attack. EMS reports [...] Roque Stiles M.D. KH: GURJIT Report ID: [id number] Reading Location: [id number] Damaris Bernabe MD IMG XR PROCEDURES F inal Result * Troponin T high-sensitivity (04/22/2024 4:38 PM ACCREDITED LEGAL SECRETARY) Trop T hs <6 <=14 ng/L Comment: Interpretive Data For further hscTnT resources including the diagnostic algorithm and an aid in interpretation, copy and paste this link: https://nrl.testcatalog.org/show/hsTrop Current Interpretive Data last revised 2020. Blood 04/22/2024 4:38 PM ACCREDITED LEGAL SECRETARY 04/22/2024 4:49 PM ACCREDITED LEGAL SECRETARY Damaris Bernabe MD LAB BLOOD ORDERABLE S Final Result [facility] [address] [facility] Department of Laboratories [place], [place] [id number] * eGFR (04/22/2024 4:38 PM ACCREDITED LEGAL SECRETARY) eGFR >90 >=60 mL/min/1. 73 m2 Comment: [...] last reviewed 2021. Blood 04/22/2024 4:38 PM ACCREDITED LEGAL SECRETARY 04/22/2024 4:49 PM ACCREDITED LEGAL SECRETARY us Damaris Bernabe MD LAB BLOOD ORDERABLE S Final Result [facility] ([place]) [address] [facility] [place] [address] * Differential, auto (04/22/2024 4:38 PM ACCREDITED LEGAL SECRETARY) Neutrophil abs 6.5 1.5 - 6.5 K/cumm [...] revised on 2017. Blood 04/22/2024 4:38 PM ACCREDITED LEGAL SECRETARY 04/22/2024 4:49 PM ACCREDITED LEGAL SECRETARY us Damaris Bernabe MD LAB BLOOD ORDERABLE S Final Result [facility] ([place]) [address] [facility] [place] [address] * (ABNORMAL) Urinalysis reflex to microscopic and culture Urine (04/22/2024 4:38 PM ACCREDITED LEGAL SECRETARY) Color, ur Yellow Yellow Clarity, ur Turbid(A) Clear [facility] ([place]) Specific gravity, ur 1.009 1.003 - 1.030 [facility] ([place]) pH, urine 8.0 [facility] ([place]) Comment: Interpretive Data U rine pH is affected by diet, medications, systemic acid-base disturbances, and renal tubular function. pH may affect urinary stone formation. For example, urine pH below 6.0 may help reduce the tendency for calcium phosphate stones and pH greater than 6.0 may reduce the tendency for uric acid stone formation. Source: [facility] Stepsss Current Interpretive Data was last revised on [...] [facility] ([place]) Urine 04/22/2024 4:38 PM ACCREDITED LEGAL SECRETARY 04/22/2024 4:49 PM ACCREDITED LEGAL SECRETARY us Damaris Bernabe MD LAB MICROBIOLOGY - GENERAL ORDERABLES Final Result Performing Organization Address City/[facility]/ZIP Co de Phone Number [facility] ([place]) [address] [facility] [place] [address] * CBC with auto differential (04/22/2024 4:38 PM ACCREDITED LEGAL SECRETARY) WBC 9.9 3.8 - 9.9 K/cumm Hgb [...] [facility] ([place]) Blood 04/22/2024 4:38 PM ACCREDITED LEGAL SECRETARY 04/22/2024 4:49 PM ACCREDITED LEGAL SECRETARY us Damaris Bernabe MD LAB BLOOD ORDERABLE S Final Result [facility] ([place]) [address] [facility] [place] [address] * (ABNORMAL) Drugs of Abuse Screen, Urine without Confirmation (04/22/2024 4:38 PM ACCREDITED LEGAL SECRETARY) [facility] Amphetamine, ur Not Detected CutOff 500ng/mL [...] revised on 2017. Urine 04/22/2024 4:38 PM ACCREDITED LEGAL SECRETARY 04/22/2024 4:49 PM ACCREDITED LEGAL SECRETARY Narrative [facility] ([place]) - 04/22/2024 5:12 PM ACCREDITED LEGAL SECRETARY Drug of Abuse screening is performed by immunoassay for medical purposes only. This is not to be used for Pain Management purposes. Damaris Bernabe MD LAB URINE ORDERABLE S Final Result [facility] ([place]) [address] [facility] [place] [address] * (ABNORMAL) Urinalysis, microscopic only (04/22/2024 4:38 PM ACCREDITED LEGAL SECRETARY) WBC, ur 0-5 0 - 5 /HPF RBC, ur 0-2 0 - 2 /HPF [facility] ([place]) Epithelial cells, squamous, ur 11-20(A) 0 - 5 /HPF [facility] ([place]) Bacteria, ur 1+(A) [facility] ([place]) Mucous, ur Present(A) [facility] ([place]) Culture Reflex Comment Reflex conditions for urine culture (WBC >10) not met. [facility] ([place]) Urine 04/22/2024 4:38 PM ACCREDITED LEGAL SECRETARY 04/22/2024 4:49 PM ACCREDITED LEGAL SECRETARY Damaris Bernabe MD LAB URINE ORDERABLE S Final Result Performing Organization Address City/[facility]/ZIP Co de Phone Number [facility] ([place]) [address] [facility] [place] [address] * hCG, blood, quantitative (04/22/2024 4:38 PM ACCREDITED LEGAL SECRETARY) hCG, quant <5.0 0.0 - 5.0 IUnits/L Comment: Interpretive Data Male: < 5 IU/L Non- premenopausal Female: <5 IU/L The Trista hCG Beta Quant assay procedure was used. Results from different manufacturers or methods may not be comparable. Serial testing should be performed using the same method. Interpretive Data was last revised on 2023 Blood 04/22/2024 4:38 PM ACCREDITED LEGAL SECRETARY 04/22/2024 4:49 PM ACCREDITED LEGAL SECRETARY Damaris Bernabe MD LAB BLOOD ORDERABLE S Final Result [facility] ([place]) [address] [facility] [place] [address] * Ethanol (04/22/2024 4:38 PM ACCREDITED LEGAL SECRETARY) Ethanol <10 <=10 mg/dL Comment: Interpretive Data Legal limit of intoxication > or = 80 mg/dL Levels > or = 400 mg/dL are potentially TOXIC. Current interpretive data was last revised on 2018. Blood 04/22/2024 4:38 PM ACCREDITED LEGAL SECRETARY 04/22/2024 4:49 PM ACCREDITED LEGAL SECRETARY us Damaris Bernabe MD LAB BLOOD ORDERABLE S Final Result [facility] ([place]) [address] [facility] [place] [address] * (ABNORMAL) Comprehensive metabolic panel (04/22/2024 4:38 PM ACCREDITED LEGAL SECRETARY) Pathologist [facility] Sodium 139 135 - 145 mmol/L Potassium, pl 3.3 3.3 - 4.9 mmol/L [facility] ([place]) Chloride 106 97 - 110 mmol/L [facility] ([place]) CO2 21(L) 22 - 32 mmol/L [facility] ([place]) Anion gap 12 2 - 15 mmol/L [facility] ([place]) BUN 7 6 - 25 mg/dL [facility] ([place]) Creatinine 0.63 0.60 - 1.10 mg/dL [facility] ([place]) Glucose 99 70 - 199 mg/dL [facility] ([place]) Comment: Interpretive Data Fasting glucose [...] [facility] ([facility]) Blood 04/22/2024 4:38 PM ACCREDITED LEGAL SECRETARY 04/22/2024 4:49 PM ACCREDITED LEGAL SECRETARY Damaris Bernabe MD LAB BLOOD ORDERABLE S Final Result [facility] ([place]) [address] [facility] [place] [place] [address] * TSH (04/22/2024 4:34 PM ACCREDITED LEGAL SECRETARY) Thyroid Stimulating Hormone 1.18 0.30 - 4.20 mcIUnit/mL Blood 04/22/2024 4:34 PM ACCREDITED LEGAL SECRETARY 04/22/2024 5:06 PM ACCREDITED LEGAL SECRETARY Damaris Bernabe MD LAB BLOOD ORDERABLE S Final Result [facility] ([place]) [address] [facility] [place] [address] * ECG 12 lead (04/22/2024 4:26 PM ACCREDITED LEGAL SECRETARY) 04/22/2024 4:26 PM ACCREDITED LEGAL SECRETARY Narrative [facility] - 04/23/2024 6:28 AM ACCREDITED LEGAL SECRETARY Vent Rate: 78 bpm RR Interval: 764 msec [place] Interval: 156 msec QRS Duration: 95 msec QT Interval: 379 msec QTC Interval: 412 msec P-R-T Buda: 44 - 48 - 47 degrees IMPRESSION: [...] Bernabe MD ECG ORDERABLES Fin al Result [facility] [employer] [facility] * CT Abdomen Pelvis W Contrast (04/16/2024 10:56 PM ACCREDITED LEGAL SECRETARY) Anatomical Region Laterality Modality Body N/A Computed Tomogra phy 04/16/2024 11:1 1 PM ACCREDITED LEGAL SECRETARY Narrative 04/16/2024 11:13 PM ACCREDITED LEGAL SECRETARY EXAM DESCRIPTION: CT ABDOMEN PELVIS W CONTRAST [...] Electronically signed by Roque CAGLE Report ID: [id number] Reading Location: [place] [address] Procedure Note Roque Stiles MD - 04/16/2024 [...] signed by Roque CAGLE: GURJIT Report ID: [id number] Reading Location: [place] [address] Kunal Marks MD IMG CT PROCEDURES Final Result * (ABNORMAL) Urinalysis reflex to microscopic and culture Urine (04/16/2024 5:38 PM ACCREDITED LEGAL SECRETARY) Color, ur Yellow Yellow Clarity, ur Clear [...] tendency for uric acid stone formation. Source: [facility] Stepsss Current Interpretive Data was last revised on [...] [facility] ([facility]) Urine 04/16/2024 5:38 PM ACCREDITED LEGAL SECRETARY 04/16/2024 5:52 PM ACCREDITED LEGAL SECRETARY Paolo Cortez MD LAB MICROBIOLOGY - GENERAL O RDERABLES Final Result [facility] ([place]) 1 [facility] Department of Laboratories [place], [place] [id number] * POCT hCG, urine (04/16/2024 5:34 PM ACCREDITED LEGAL SECRETARY) HCG, ur, POC Negative Negative Lot Number [id number] QC Backgroud Clear Acceptable QC Control Line Acceptable Urine 04/16/2024 5:34 PM ACCREDITED LEGAL SECRETARY Paolo Cortez MD POINT OF CARE TEST ORDERABLE S Final Result * eGFR (04/16/2024 4:26 PM ACCREDITED LEGAL SECRETARY) eGFR >90 >=60 mL/min/1. 73 m2 Comment: [...] last reviewed 2021. Blood 04/16/2024 4:26 PM ACCREDITED LEGAL SECRETARY 04/16/2024 4:30 PM ACCREDITED LEGAL SECRETARY Paolo Cortez MD LAB BLOOD ORDERABLES Final R esult [facility] ([place]) [address] [facility] Department of Laboratories [place], [place] [id number] * (ABNORMAL) Differential, auto (04/16/2024 4:26 PM ACCREDITED LEGAL SECRETARY) Neutrophil abs 9.5(H) 1.5 - 6.5 K/cumm Imm gran abs 0.0 0.0 - 0.1 K/cumm [facility] ([place]) Lymphocyte abs 2.5 0.8 - 3.3 K/cumm [facility] ([place]) Monocyte abs 0.5 0.2 - 0.8 K/cumm [facility] ([place]) Eosinophil abs 0.1 0.0 - 0.5 K/cumm [...] revised on 2017. Blood 04/16/2024 4:26 PM ACCREDITED LEGAL SECRETARY 04/16/2024 4:30 PM ACCREDITED LEGAL SECRETARY us Paolo Cortez MD LAB BLOOD ORDERABLES Final R esult [facility] ([place]) [address] [facility] [place] [address] * (ABNORMAL) CBC with auto differential (04/16/2024 4:26 PM ACCREDITED LEGAL SECRETARY) WBC 12.6(H) 3.8 - 9.9 K/cumm Hgb [...] blood specimen / Unknown 04/16/2024 4:26 PM ACCREDITED LEGAL SECRETARY 04/16/2024 4:30 PM ACCREDITED LEGAL SECRETARY Paolo Cortez MD LAB BLOOD ORDERABLES Final R esult [facility] ([place]) [address] [facility] [place] [address] * Lipase (04/16/2024 4:26 PM ACCREDITED LEGAL SECRETARY) Lipase 20 10 - 99 Units/L Blood Venous blood specimen / Unknown 04/16/2024 4:26 PM ACCREDITED LEGAL SECRETARY 04/16/2024 4:30 PM ACCREDITED LEGAL SECRETARY Paolo Cortez MD LAB BLOOD ORDERABLES Final R esult [facility] ([place]) [address] [facility] [place] [address] * (ABNORMAL) Comprehensive metabolic panel (04/16/2024 4:26 PM ACCREDITED LEGAL SECRETARY) Sodium 139 135 - 145 mmol/L Potassium, [...] [facility] ([facility]) Blood 04/16/2024 4:26 PM ACCREDITED LEGAL SECRETARY 04/16/2024 4:30 PM ACCREDITED LEGAL SECRETARY us Paolo Cortez MD LAB BLOOD ORDERABLES Final R esult [facility] ([place]) [address] [facility] [place] [address] * ECG 12 lead (04/16/2024 4:22 PM ACCREDITED LEGAL SECRETARY) 04/16/2024 4:22 PM ACCREDITED LEGAL SECRETARY Narrative [facility] - 04/16/2024 4:53 PM ACCREDITED LEGAL SECRETARY Vent Rate: 112 bpm RR Interval: 533 msec [place] Interval: 160 msec QRS Duration: 92 msec QT Interval: 321 msec QTC Interval: 387 msec P-R-T Buda: 58 - 65 - 60 degrees IMPRESSION: SINUS TACHYCARDIA INCOMPLETE RIGHT BUNDLE BRANCH BLOCK [90+ ms QRS DURATION, TERMINAL R IN V1/V2, 40+ ms S IN I/aVL/V4/V5/V6] ABNORMAL RHYTHM ECG Electronically Signed By: Jonatan Monte MD Paolo Cortez MD ECG ORDERABLES Final Result [facility] [employer] [facility] from Last 3 Months Insurance [place] [employer] Care Teams Bow Machine Operator Relationship Specialty Start Date End Date Dary Beltrán NP [address] [address] PCP - General Family Medicine 04/16/24
--- OUTSIDE RECORDS SUMMARY | 2024-06-25 04:53 | XMS_ITS | Referral Summary ---
Author Organization [address] lt Address [address] [place] [address] Care Team Providers Care Polysomnographic Technologist Name Role Phone Dary Beltrán NP Primary Care Provider [phone] Encounters Date Type Department Care Team Description 04/22/2024 3:14 PM RETAIL FIELD REPRESENTATIVE - 04/22/2024 11:59 PM RETAIL FIELD REPRESENTATIVE Hospital Encounter [facility] Emergency, Room R Discharge Disposition: Discharge to home or self care 04/22/2024 3:34 PM RETAIL FIELD REPRESENTATIVE - 04/22/2024 6:47 PM RETAIL FIELD REPRESENTATIVE Emergency [facility] Emergency Department [address] [place] [address] Kunal Marks MD Ittiara, Verona Maierhofer, MD Anxiety (Primary Dx) Discharge Disposition: Discharge to home or self care 04/22/2024 2:30 PM RETAIL FIELD REPRESENTATIVE Office Visit [facility] [place] [address] [place] [address] Torrie Calles NP Chest pain, unspecified type (Primary Dx); Tachycardia 04/16/2024 8:13 PM RETAIL FIELD REPRESENTATIVE - 04/17/2024 12:09 AM [facility] Emergency [facility] Emergency Department [address] [place] [address] Kunal Marks MD LUQ pain (Primary Dx) [...] on file Legal Sex Female 2:29 AM RETAIL FIELD REPRESENTATIVE Gender Identity Not on file Sexual Orientation Not on file Last Filed Vital Signs Vital Sign Reading Time Taken Comments Blood Pressure 115/70 04/22/2024 6:15 PM RETAIL FIELD REPRESENTATIVE Pulse 83 04/22/2024 6:15 PM RETAIL FIELD REPRESENTATIVE Temperature 36.3 C (97.4 F) 04/22/2024 4:27 PM RETAIL FIELD REPRESENTATIVE Respiratory Rate 15 04/22/2024 6:15 PM RETAIL FIELD REPRESENTATIVE Oxygen Saturation 96% 04/22/2024 6:15 PM RETAIL FIELD REPRESENTATIVE Inhaled Oxygen Concentration - - Weight 95.7 kg (211 lb) 04/22/2024 3:44 PM RETAIL FIELD REPRESENTATIVE Height 172.7 cm (5' 8 ) 04/16/2024 4:04 PM RETAIL FIELD REPRESENTATIVE Body Mass Index 32.08 04/16/2024 4:04 PM RETAIL FIELD REPRESENTATIVE Plan of Treatment Not on file Procedures Procedure Name Priority Date/Time Associated Diagnosis Comments XR CHEST 1 VIEW ED 04/22/2024 4:52 PM RETAIL FIELD REPRESENTATIVE EGFR STAT 04/22/2024 4:38 PM RETAIL FIELD REPRESENTATIVE URINALYSIS, MICROSCOPIC ONLY STAT 04/22/2024 4:38 PM RETAIL FIELD REPRESENTATIVE DIFFERENTIAL AUTO STAT 04/22/2024 4:3 8 PM RETAIL FIELD REPRESENTATIVE DRUGS OF ABUSE SCREEN, URINE WITHOUT CONFIRMATION STAT 04/22/2024 4:38 PM RETAIL FIELD REPRESENTATIVE ETHANOL STAT 04/22/2024 4:38 PM RETAIL FIELD REPRESENTATIVE HCG, BLOOD, QUANTITATIVE STAT 04/22/2024 4:38 PM RETAIL FIELD REPRESENTATIVE TROPONIN T HIGH-SENSITIVITY STAT 04/22/2024 4:38 PM RETAIL FIELD REPRESENTATIVE COMPREHENSIVE METABOLIC PANEL STAT 04/22/2024 4:38 PM RETAIL FIELD REPRESENTATIVE CBC WITH AUTO DIFFERENTIAL STAT 04/22/2024 4:38 PM RETAIL FIELD REPRESENTATIVE URINALYSIS AND REFLEX TO MICROSCOPIC AND CULTURE STAT 04/22/2024 4:38 PM RETAIL FIELD REPRESENTATIVE TSH STAT 04/22/2024 4:34 PM RETAIL FIELD REPRESENTATIVE ECG 12-LEAD STAT 04/22/2024 4:26 [address] REPRES[address]ATIVE CT ABDOMEN PELVIS W CONTRAST ED 04/16/2024 10:56 PM RETAIL FIELD REPRESENTATIVE URINALYSIS AND REFLEX TO MICROSCOPIC AND CULTURE STAT 04/16/2024 5:38 PM RETAIL FIELD REPRESENTATIVE POCT HCG, URINE Routine 04/16/2024 5:34 PM RETAIL FIELD REPRESENTATIVE EGFR STAT 04/16/2024 4:26 PM RETAIL FIELD REPRESENTATIVE DIFFERENTIAL AUTO STAT 04/16/2024 4:2 6 PM RETAIL FIELD REPRESENTATIVE LIPASE STAT 04/16/2024 4:26 PM RETAIL FIELD REPRESENTATIVE COMPREHENSIVE METABOLIC PANEL STAT 04/16/2024 4:26 PM RETAIL FIELD REPRESENTATIVE CBC WITH AUTO DIFFERENTIAL STAT 04/16/2024 4:26 PM RETAIL FIELD REPRESENTATIVE ECG 12-LEAD STAT 04/16/2024 4:22 PM RETAIL FIELD REPRESENTATIVE from Last 3 Months Results * XR Chest 1 Vw Portable (04/22/2024 4:52 PM RETAIL FIELD REPRESENTATIVE) Anatomical Region Laterality Modality Body, Chest N/A Computed Radiogr aphy 04/22/2024 4:54 PM RETAIL FIELD REPRESENTATIVE Narrative 04/22/2024 4:54 PM RETAIL FIELD REPRESENTATIVE EXAM DESCRIPTION: XR CHEST 1 VIEW REASON FOR STUDY: chest pain Patient to ED via [facility] from [facility] Care for panic attack. EMS reports [...] Roque Stiles M.D. KH: GURJIT Report ID: [id number] Reading Location: [id number] Procedure Note Roque Stiles MD - 04/22/2024 EXAM DESCRIPTION: XR CHEST 1 VIEW REASON FOR STUDY: chest pain Patient to ED via [facility] EMS from [facility] Convenient Care for panic attack. EMS reports [...] Roque Stiles M.D. KH: GURJIT Report ID: [id number] Reading Location: [place] [address] Damaris Bernabe MD IMG XR PROCEDURES F inal Result * Troponin T high-sensitivity (04/22/2024 4:38 PM RETAIL FIELD REPRESENTATIVE) Trop T hs <6 <=14 ng/L Comment: Interpretive Data For further hscTnT resources including the diagnostic algorithm and an aid in interpretation, copy and paste this link: https://nrl.testcatalog.org/show/hsTrop Current Interpretive Data last revised 2020. Blood 04/22/2024 4:38 PM RETAIL FIELD REPRESENTATIVE 04/22/2024 4:49 PM RETAIL FIELD REPRESENTATIVE Damaris Bernabe MD LAB BLOOD ORDERABLE S Final Result [facility] INTERIOR) [address] [facility] Department of Laboratories [place], [place] [id number] * eGFR (04/22/2024 4:38 PM RETAIL FIELD REPRESENTATIVE) eGFR >90 >=60 mL/min/1. 73 m2 Comment: [...] last reviewed 2021. Blood 04/22/2024 4:38 PM RETAIL FIELD REPRESENTATIVE 04/22/2024 4:49 PM RETAIL FIELD REPRESENTATIVE us Damaris Bernabe MD LAB BLOOD ORDERABLE S Final Result [facility] (INTERIOR) [address] [facility] Department [place] [address] * Differential, auto (04/22/2024 4:38 PM RETAIL FIELD REPRESENTATIVE) Neutrophil abs 6.5 1.5 - 6.5 K/cumm [...] revised on 2017. Blood 04/22/2024 4:38 PM RETAIL FIELD REPRESENTATIVE 04/22/2024 4:49 PM RETAIL FIELD REPRESENTATIVE us Damaris Bernabe MD LAB BLOOD ORDERABLE S Final Result [facility] (INTERIOR) [address] [facility] Department [place] [address] * (ABNORMAL) Urinalysis reflex to microscopic and culture Urine (04/22/2024 4:38 PM RETAIL FIELD REPRESENTATIVE) Color, ur Yellow Yellow Clarity, ur Turbid(A) Clear [facility] Cardoso (INTERIOR) Specific gravity, ur 1.009 1.003 - 1.030 [facility] (INTERIOR) pH, urine 8.0 [facility] (INTERIOR) Comment: Interpretive Data U rine pH is affected by diet, medications, systemic acid-base disturbances, and renal tubular function. pH may affect urinary stone formation. For example, urine pH below 6.0 may help reduce the tendency for calcium phosphate stones and pH greater than 6.0 may reduce the tendency for uric acid stone formation. Source: [facility] [employer] Current Interpretive Data was last revised on [...] [facility] (J[facility]IUS) Urine 04/22/2024 4:38 PM RETAIL FIELD REPRESENTATIVE 04/22/2024 4:49 PM RETAIL FIELD REPRESENTATIVE us Damaris Bernabe MD LAB MICROBIOLOGY - GENERAL ORDERABLES Final Result [facility] ([facility] [address] [facility] Department [place] [address] * CBC with auto differential (04/22/2024 4:38 PM RETAIL FIELD REPRESENTATIVE) WBC 9.9 3.8 - 9.9 K/cumm Hgb [...] [facility] (JULIUS) Blood 04/22/2024 4:38 PM RETAIL FIELD REPRESENTATIVE 04/22/2024 4:49 PM RETAIL FIELD REPRESENTATIVE us Damaris Bernabe MD LAB BLOOD ORDERABLE S Final Result [facility]IA HIGGINS (INTERIOR) [address] [facility] Department [place] [address] * (ABNORMAL) Drugs of Abuse Screen, Urine without Confirmation (04/22/2024 4:38 PM RETAIL FIELD REPRESENTATIVE) Pathologist [facility] Amphetamine, ur Not Detected CutOff 500ng/mL Comment: [...] revised on 2017. Urine 04/22/2024 4:38 PM RETAIL FIELD REPRESENTATIVE 04/22/2024 4:49 PM RETAIL FIELD REPRESENTATIVE Narrative [facility] (INTERIOR) - 04/22/2024 5:12 PM RETAIL FIELD REPRESENTATIVE Drug of Abuse screening is performed by immunoassay for medical purposes only. This is not to be used for Pain Management purposes. Damaris Bernabe MD LAB URINE ORDERABLE S Final Result Performing Organization Address City/[facility]/ZIP Co de Phone Number WOO HIGGINS (INTERIOR) [address] [facility] [place] [address] * (ABNORMAL) Urinalysis, microscopic only (04/22/2024 4:38 PM RETAIL FIELD REPRESENTATIVE) WBC, ur 0-5 0 - 5 /HPF RBC, ur 0-2 0 - 2 /HPF [facility] Epithelial cells, squamous, ur 11-20(A) 0 - 5 /HPF [facility] Bacteria, ur 1+(A) [facility] Mucous, ur Present(A) B[facility]ANNANER A (JULIUS) Culture Reflex Comment Reflex conditions for urine culture (WBC >10) not met. [facility] (JULIUS) Urine 04/22/2024 4:38 PM RETAIL FIELD REPRESENTATIVE 04/22/2024 4:49 PM RETAIL FIELD REPRESENTATIVE Damaris Bernabe MD LAB URINE ORDERABLE S Final Result Performing Organization Address City/[facility]/ZIP Co de Phone Number WOO RONALDO (INTERIOR) [address] [facility] [place] [address] * hCG, blood, quantitative (04/22/2024 4:38 PM RETAIL FIELD REPRESENTATIVE) hCG, quant <5.0 0.0 - 5.0 IUnits/L Comment: Interpretive Data Male: < 5 IU/L Non- premenopausal Female: <5 IU/L The Trista hCG Beta Quant assay procedure was used. Results from different manufacturers or methods may not be comparable. Serial testing should be performed using the same method. Interpretive Data was last revised on 2023 Blood 04/22/2024 4:38 PM RETAIL FIELD REPRESENTATIVE 04/22/2024 4:49 PM RETAIL FIELD REPRESENTATIVE Damaris Bernabe MD LAB BLOOD ORDERABLE S Final Result Performing Organization Address City/[facility] Co de Phone Number WOO HIGGINS (JULIUS) [address] [place] [address] * Ethanol (04/22/2024 4:38 PM RETAIL FIELD REPRESENTATIVE) Pathologist [facility] Ethanol <10 <=10 mg/dL Comment: Interpretive Data Legal limit of intoxication > or = 80 mg/dL Levels > or = 400 mg/dL are potentially TOXIC. Current interpretive data was last revised on 2018. Blood 04/22/2024 4:38 PM RETAIL FIELD REPRESENTATIVE 04/22/2024 4:49 PM RETAIL FIELD REPRESENTATIVE Damaris Bernabe MD LAB BLOOD ORDERABLE S Final Result Performing Organization Address [facility] de Phone Number WOO HIGGINS (JULIUS) [address] [place] [address] * (ABNORMAL) Comprehensive metabolic panel (04/22/2024 4:38 PM RETAIL FIELD REPRESENTATIVE) Sodium 139 135 - 145 mmol/L Potassium, pl 3.3 3.3 - 4.9 mmol/L [facility] (JULIUS) Chloride 106 97 - 110 mmol/L [facility] (JULIUS) CO2 21(L) 22 - 32 mmol/L [facility] (JULIUS) Anion gap 12 2 - 15 mmol/L [facility] ([facility]US) BUN 7 6 - 25 mg/dL [facility] ([facility]) Creatinine 0.63 0.60 - 1.10 mg/dL [facility] ([facility]US) Glucose 99 70 - 199 mg/dL [facility] (JULIUS) Comment: Interpretive Data Fasting glucose [...] [facility] ([facility]) Blood 04/22/2024 4:38 PM RETAIL FIELD REPRESENTATIVE 04/22/2024 4:49 PM RETAIL FIELD REPRESENTATIVE Damaris Bernabe MD LAB BLOOD ORDERABLE S Final Result Performing Organization Address City/[facility]/ZIP Co de Phone Number [facility] (JULIUS) [address] [facility] [place] [address] * TSH (04/22/2024 4:34 PM RETAIL FIELD REPRESENTATIVE) Thyroid Stimulating Hormone 1.18 0.30 - 4.20 mcIUnit/mL Blood 04/22/2024 4:34 PM RETAIL FIELD REPRESENTATIVE 04/22/2024 5:06 PM RETAIL FIELD REPRESENTATIVE Damaris Bernabe MD LAB BLOOD ORDERABLE S Final Result Performing Organization Address City/[facility]/ZIP Co de Phone Number [facility] (JULIUS) [address] [facility] Department [place] [address] * ECG 12 lead (04/22/2024 4:26 PM RETAIL FIELD REPRESENTATIVE) 04/22/2024 4:26 PM RETAIL FIELD REPRESENTATIVE Narrative [facility] - 04/23/2024 6:28 AM RETAIL FIELD REPRESENTATIVE Vent Rate: 78 bpm RR Interval: 764 msec SD Interval: 156 msec QRS Duration: 95 msec QT Interval: 379 msec QTC Interval: 412 msec P-R-T King: 44 - 48 - 47 degrees IMPRESSION: [...] Bernabe MD ECG ORDERABLES Fin al Result [facility] [employer] * CT Abdomen Pelvis W Contrast (04/16/2024 10:56 PM RETAIL FIELD REPRESENTATIVE) Anatomical Region Laterality Modality Body N/A Computed Tomogra phy 04/16/2024 11:1 1 PM RETAIL FIELD REPRESENTATIVE Narrative 04/16/2024 11:13 PM RETAIL FIELD REPRESENTATIVE EXAM DESCRIPTION: CT ABDOMEN PELVIS W CONTRAST [...] Roque Stiles M.D. KH: GURJIT Report ID: [id number] Reading Location: [place] [address] Procedure Note Roque Stiles MD - 04/16/2024 [...] Roque Stiles M.D. KH: GURJIT Report ID: [id number] Reading Location: [place] [address] Kunal Marks MD IMG CT PROCEDURES Final Result * (ABNORMAL) Urinalysis reflex to microscopic and culture Urine (04/16/2024 5:38 PM RETAIL FIELD REPRESENTATIVE) Color, ur Yellow Yellow Clarity, ur Clear [...] tendency for uric acid stone formation. Source: [facility] [employer] Current Interpretive Data was last revised on [...] [facility] ([facility]) Urine 04/16/2024 5:38 PM RETAIL FIELD REPRESENTATIVE 04/16/2024 5:52 PM RETAIL FIELD REPRESENTATIVE Paolo Cortez MD LAB MICROBIOLOGY - GENERAL O RDERABLES Final Result [facility] HIGGINS (INTERIOR) [address] [facility] [employer] [address] * POCT hCG, urine (04/16/2024 5:34 PM RETAIL FIELD REPRESENTATIVE) HCG, ur, POC Negative Negative Lot Number [id number] QC Backgroud Clear Acceptable QC Control Line Acceptable Urine 04/16/2024 5:34 PM RETAIL FIELD REPRESENTATIVE Paolo Cortez MD POINT OF CARE TEST ORDERABLE S Final Result * eGFR (04/16/2024 4:26 PM RETAIL FIELD REPRESENTATIVE) eGFR >90 >=60 mL/min/1. 73 m2 Comment: [...] last reviewed 2021. Blood 04/16/2024 4:26 PM RETAIL FIELD REPRESENTATIVE 04/16/2024 4:30 PM RETAIL FIELD REPRESENTATIVE Paolo Cortez MD LAB BLOOD ORDERABLES Final R esult [facility]IGGINS (INTERIOR) [address] [facility] [place] [address] * (ABNORMAL) Differential, auto (04/16/2024 4:26 PM RETAIL FIELD REPRESENTATIVE) Neutrophil abs 9.5(H) 1.5 - 6.5 K/cumm [...] revised on 2017. Blood 04/16/2024 4:26 PM RETAIL FIELD REPRESENTATIVE 04/16/2024 4:30 PM RETAIL FIELD REPRESENTATIVE Paolo Cortez MD LAB BLOOD ORDERABLES Final R esult [facility] (JULIUS) [address] [facility] Department [place] [address] * (ABNORMAL) CBC with auto differential (04/16/2024 4:26 PM RETAIL FIELD REPRESENTATIVE) WBC 12.6(H) 3.8 - 9.9 K/cumm Hgb [...] blood specimen / Unknown 04/16/2024 4:26 PM RETAIL FIELD REPRESENTATIVE 04/16/2024 4:30 PM RETAIL FIELD REPRESENTATIVE Paolo Cortez MD LAB BLOOD ORDERABLES Final R esult [facility]OO HIGGINS (JULIUS) 1 [facility] [place] [address] * Lipase (04/16/2024 4:26 PM RETAIL FIELD REPRESENTATIVE) Lipase 20 10 - 99 Units/L Blood Venous blood specimen / Unknown 04/16/2024 4:26 PM RETAIL FIELD REPRESENTATIVE 04/16/2024 4:30 PM RETAIL FIELD REPRESENTATIVE us Paolo Cortez MD LAB BLOOD ORDERABLES Final R esult [facility] (INTERIOR) [address] [facility] Department [place] [address] * (ABNORMAL) Comprehensive metabolic panel (04/16/2024 4:26 PM RETAIL FIELD REPRESENTATIVE) Sodium 139 135 - 145 mmol/L Potassium, [...] [facility] ([facility]) Blood 04/16/2024 4:26 PM RETAIL FIELD REPRESENTATIVE 04/16/2024 4:30 PM RETAIL FIELD REPRESENTATIVE Paolo Cortez MD LAB BLOOD ORDERABLES Final R esult Performing Organization Address City/[facility] Co de Phone Number [facility] (JULIUS) [address] [facility] Department [place] [address] * ECG 12 lead (04/16/2024 4:22 PM RETAIL FIELD REPRESENTATIVE) 04/16/2024 4:22 PM RETAIL FIELD REPRESENTATIVE Narrative [facility] - 04/16/2024 4:53 PM RETAIL FIELD REPRESENTATIVE Vent Rate: 112 bpm RR Interval: 533 msec SD Interval: 160 msec QRS Duration: 92 msec QT Interval: 321 msec QTC Interval: 387 msec P-R-T King: 58 - 65 - 60 degrees IMPRESSION: SINUS TACHYCARDIA INCOMPLETE RIGHT BUNDLE BRANCH BLOCK [90+ ms QRS DURATION, TERMINAL R IN V1/V2, 40+ ms S IN I/aVL/V4/V5/V6] ABNORMAL RHYTHM ECG Electronically Signed By: Jonatan Monte MD Paolo Cortez MD ECG ORDERABLES Final Result Performing Organization Address City/[facility] Co de Phone Number [facility] [employer] [facility] from Last 3 Months Insurance [place] [facility] Care Teams Polysomnographic Technologist Relationship Specialty Start Date End Date Dary Beltrán NP [address] [address] PCP - General Family Medicine 04/16/24
--- OUTSIDE RECORDS SUMMARY | 2024-06-25 04:53 | XMS_ITS | Continuity of Care Document ---
Author Organization [facility] Address [address] [place] [address] [place] [address] Phone Care Team Providers Care Supervisor [employer] Name Role Phone Euceda OD, Maged Unavailable Unavailable Procedures Procedure Date Eye Exam, New Patient Refraction Eye Exam, New Patient Refraction Advance Directives Directive Yes / No Effective Date File Name No Information Encounters Encounter Description Practice Location Reason(s) For Visit Diagnoses Date Provider Providers Copied on Encounter [facility], [address] [place] [address] [address], [place], [place], [id number], tel:[phone] SEC [facility] No Information [phone] Euceda OD Maged. [address], [place], [place], [facility], [place]. tel:[phone] [facility], [address] [place] [address] [address], [place], [place], [id number], tel:[phone] [facility] [place] No Information [address], [place], [place], [facility], [place]. tel:[phone] Family History Family Member Type Diagnosis Age At Onset No Information Payers Payer name Insurance type Covered green party ID Authoriza tiblank(s) [facility] Commercial CI [id number] [facility] [id number] [place] [id number] Social History Type Description Quantity Date Captured [...]
[2024-06-25] MEDS: SODIUM CHLORIDE 0.9% IV 1,000 ML 999 ML IV CONT ×2 (04:55→06:59)
[2024-06-25] MEDS: MORPHINE SULFATE (*CRX) 4 MG/ML INJ IV PUSH (04:55)
[2024-06-25 05:01] LABS: Basophils Percent Auto 0.3 % (0.2-1.2); Eosinophils Percent Auto 0.4 % (0-4.4); Hematocrit 42.8 % (37.0-47.0); Hemoglobin 14.2 g/dL (12.0-15.0); Immature Granulocyte Absolute 0.03 K/mm3 (0.00-0.031); Immature Granulocyte Percent A 0.3 % (0-0.5); Lymphocytes Absolute Auto 2.81 K/mm3 (0.9-3.2); Lymphocytes Percent Auto 25.2 % (18.3-44.2); Mean Corpuscular HGB Conc 33.2 g/dl (32-36); Mean Corpuscular Volume 90.5 fl (80-100); Mean Platelet Volume 10.6 fl (7.4-10.4); Monocytes Absolute Auto 0.5 K/mm3 (0.1-0.6); Monocytes Percent Auto 4.1 % (2.6-8.5); Neutrophils Absolute Auto 7.8 K/mm3 (1.3-6.7); Neutrophils Percent Auto 69.7 % (45.5-73.1); Platelet Count Result 191 k/mm3 (150-375); Red Blood Count 4.73 M/mm3 (4.2-5.4); White Blood Count 11.2 K/mm3 (4.5-10.0)
[2024-06-25 05:11] LABS: Alanine Aminotransferase 26 U/L (6-35); Albumin Level 4.6 g/dL (3.7-5.6); Alkaline Phosphatase 96 U/L (45-116); Anion Gap 14 mmol/L (4-12); Aspartate Amino Transferase 29 U/L (14-36); Blood Urea Nitrogen 8 mg/dL (8-21); Calcium 9.5 mg/dL (8.9-10.7); Carbon Dioxide 19 mmol/L (22-30); Chloride 105 mmol/L (98-107); Estimated CRCL calculation 151 ml/min; Estimated Glomerular Filt Rate > 60; Glucose 122 mg/dL (65-110); Magnesium 1.7 mg/dL (1.6-2.3); Potassium 3.2 mmol/L (3.4-5.0); Sodium 138 mmol/L (134-143)
[2024-06-25 05:20] LABS: Lactic Acid Reflex 3.2 mmol/L (0.7-2.0)
[2024-06-25 05:23] LABS: INR 1.1; Partial Thromboplastin Time 26.7 Seconds (22.3-36.8); Prothrombin Time 14.1 Seconds (11.1-14.7)
[2024-06-25 05:33] VITALS: BP 99/67; PULSE 82; RESP 9; O2SAT 100
[2024-06-25] MEDS: POTASSIUM BICARBONATE 25 MEQ TABEF 50 MEQ PO (06:55)
[2024-06-25 06:59] LABS: Reflex Lactic Acid Yes or No Add Lactic
[2024-06-25] MEDS: ONDANSETRON INJ 4 MG/2 ML VIAL IV PUSH (07:00)
--- NOTE | 2024-06-25 07:33 | PC.NURSE ---
Patient request IV be left in. GI lab pre-op staff made aware IV will be intact upon arrival.
[2024-06-25 07:49] VITALS: BP 125/80; PULSE 82; RESP 16; O2SAT 98
== END 2024-06-25 07:50 | disposition home or self-care (01) ==
PROVIDERS: Emergency Provider Student in an Organized Health Care Education/Training Program; PCP Nurse Practitioner Family
DX: K92.1 Melena (principal); E87.6 Hypokalemia; Z97.5 Presence of (intrauterine) contraceptive device; Z87.891 Personal history of nicotine dependence; R00.0 Tachycardia, unspecified
CPT/HCPCS: 36415; 74177; 80053; 83605; 83735; 85025; 85610; 85730; 86850; 86900; 86901; 93005; 96361; 96374; 96375; 99284; A9270; J2270; J2405; J7030; Q9967

== ENCOUNTER 2024-08-23 11:49 | Outpatient (CLI) | payer OTHER, SELFPAY ==
--- NOTE | ~2024-08-23 | US_ITS ---
Examination: US breast BI limited INDICATION: 18-year old female; feels lump in both breast, 10:00 on the right and 12:00 to 2:00 on th e left. COMPARISON: None TECHNIQUE: Targeted sonographic evaluation of the palpable lump area in both breasts was completed. FINDINGS: A 0.9 x 0.7 x 0.4 cm circumscribed hypoechoic mass at 9:00 location 5 cm from the nipple in the RIGHT breast correlates to the palpable finding identified by the patient. A 1.5 x 0.9 x 0.5 cm circumscribed hypoechoic mass at 12:00 location 2 cm from the nipple in the LEFT breast correlates to the palpable finding identified by the patient. IMPRESSION: PROBABLY BENIGN BILATERAL BREAST MASSES COMPATIBLE WITH PROBABLE FIBROADENOMA. RECOMMENDATION: 6 MONTH FOLLOW-UP BILATERAL BREAST ULTRASOUND. BI-RADS 3, PROBABLY BENIGN Reviewed, dictated and finalized at location B.
--- OUTSIDE RECORDS SUMMARY | 2024-08-23 12:44 | XMS_ITS | Clinical Summary ---
Author Organization [facility] [place] Address [address] [place] [address] Care Team Providers Care Shrimp Header Name Role Phone Paz Calvert APRN-UMBRELLA FRAME MAKER Primary Care Provider Jan Hernandez MD Unavailable Source Comments [facility],non-owned Affiliates and Associated Physician Practices is amultiple site organization consisting of ambulatory clinics and hospital sitesin [place], [place] and [place]. This disclosure is being madepursuant to the Care Everywhere program and may not contain all information available regarding this patient. Last updated 17.[facility] Allergies Active Allergy Reactions Criticality Noted Date Comments Amitriptyline Other 05/27/2020 Per mother Medications * This document contains information received from the source organization and may not represent a complete record from that organization. * Be aware that medications may not be up to date on this document. Alwaysverify current medications with the patient. medroxyPROGESTERon e Acetate (DEPO-PROVERA IM) Ac tive Active Problems Problem Noted Date Diagnosed Date Positive urine drug screen 05/12/2019 Assessment & Plan (05/12/2019 9:25 AM MANAGER FRONT): Dheeraj had a positive comprehensive drug screen for methamphetamines. Unlikely to be false positive. Plan: - will obtain further history and discuss with Dheeraj Intentional drug overdose 05/11/2019 Assessment & Plan (05/12/2019 9:06 AM MANAGER FRONT): Dheeraj Berry is a 13 yo female with intentional lexapro overdose. She is at risk of develop serotonin syndrome including tachycardia, prolonged QT, arrhythmia, hypertension, hyperreflexia, and altered mental status. No evidence of serotonergic symptoms this morning. Repeat EKGs have been normal. Plan: -Vitals Q8 -Strict I/Os -Regular diet -Saline lock -No need for more EKGs -Toxicology consulted -Central intake consult once medically cleared Assessment & Plan (05/11/2019 4:41 PM MANAGER FRONT): Dheeraj Berry is a 13 yo female with intentional lexapro overdose. She is at risk of develop serotonin syndrome including tachycardia, prolonged QT, arrhythmia, hypertension, hyperreflexia, and altered mental status. Currently, she is only experiencing tachycardia and hypertension and seems otherwise stable. Given her risk of decompensation and possible co-ingestion, she requires admission for further management. Plan: -Admit to Dr. Nelson avery -Vitals Q4 -Strict I/Os -NPO, Advance diet this evening if doing well -Collect comprehensive UDS -Repeat EKG this evening and tomorrow -plot QTc on nomogram -Conisder magnesium if above threshhold -Neuro checks Q4 -Collect comprehensive UDS -Collect bHCG -Toxicology consulted -Central intake consult once medically cleared Social History Tobacco Use Types Packs/Day Years Used Date Smoking Tobacco: Never Smokeless Tobacco: Never Alcohol Use Standard Drinks/Week Comments Never 0 (1 standard drink = 0.6 oz pur e alcohol) AUDIT-C Answer Date Recorded Frequency of Alcohol Consumption Never 05/27/2020 Average Number of Drinks Not on file 021 Frequency of Binge Drinking Not on file 11/2020 Comments No Sex and Gender Information Value Date Recorded Sex Assigned at Not on file Legal Sex Female 5:44 AM MANAGER FRONT Gender Identity Not on file Sexual Orientation Not on file Last Filed Vital Signs Vital Sign Reading Time Taken Comments Blood Pressure 110/68 05/27/2020 10:46 AM MANAGER FRONT Pulse 112 05/27/2020 10:46 AM MANAGER FRONT Temperature 36.6 C (97.9 F) 05/27/2020 10:46 AM MANAGER FRONT Respiratory Rate 20 05/27/2020 10:4 6 AM MANAGER FRONT Oxygen Saturation 97% 05/27/2020 10: 46 AM MANAGER FRONT Inhaled Oxygen Concentration - - Weight 86.2 kg (190 lb 0.6 oz) 05/28/19 21 10:46 AM MANAGER FRONT Height 171.2 cm (5' 7.4) 05/27/2020 10 :46 AM MANAGER FRONT Body Mass Index 29.41 05/27/2020 10:46 AM MANAGER FRONT Body Mass Index Percentile 95.50% 05/27 10:46 AM MANAGER FRONT Growth Chart: [facility] (Girls, 2- 20 Years) Plan of Treatment Health Maintenance Due Date Last Done Comments HIV SCREENING 10/01/2019 HPV VACCINE (1 - 3-dose series) 10/01/2019 CHLAMYDIA/GONORRHEA SCREENING 2020 MENINGOCOCCAL (Group B) VACC INE SHARED DECISION-MAKING (1 of 2 - Standard) 2020 HEPATITIS C SCREENING 09/26/2022 DTAP/TDAP/TD VACCINES (1 - Tdap) 10/01/2023 HEPATITIS B VACCINE (1 of 3 - 19+ 3-dose series) 10/01/2023 COVID-19 VACCINE (1 - 2023-2 5 season) 2023 DEPRESSION SCREENING 03/21/2024 INFLUENZA VACCINE (Season Ended) 2024 ZOSTER VACCINE (1 of 2) 2054 HIB VACCINE Aged Out No longer eligi ble based on patient's age to complete this topic MENINGOCOCCAL GROUPS A/C/Y/W VACCINE Aged Out No longer eligible b ased on patient's age to complete this topic PNEUMOCOCCAL VACCINE Aged Out No long er eligible based on patient's age to complete this topic Insurance [employer] SELF PAY NO INSURANCE Member Subscriber Plan / Payer (Ef fective for All Dates) Name:Michael Berrykaterin Olson Member ID:Not on file Relation to Subscriber:Not on file Name:DHEERAJ BERRY Subscriber ID:Not on file (Home) Address: [address] [place] [id number] Payer ID:Not on file Group ID:Not on file Type:Self Pay Address: [place] [facility] Advance Directives * Full Code (Latest Code Status on File) Date Activated Date Inactivated Comments 05/11/2019 3:39 PM 05/12/2019 11:20 PM Care Teams Shrimp Header Relationship Specialty Start Date End Date Paz Calvert, AGATE SETTER-UMBRELLA FRAME MAKER [address] [place] [address] PCP - General Nurse Practitioner Family 12/04/18 Jan Hernandez MD [address] [place] [address] Orthopedic Surgery 12/15/18
--- OUTSIDE RECORDS SUMMARY | 2024-08-23 12:44 | XMS_ITS | Continuity of Care Document ---
Author Organization [facility] Address [address] [place] [address] [place] [address] Phone Care Team Providers Care Heating Systems Installer Name Role Phone Euceda OD, Maged Unavailable Unavailable Procedures Procedure Date Eye Exam, New Patient Refraction Eye Exam, New Patient Refraction Advance Directives Directive Yes / No Effective Date File Name No Information Encounters Encounter Description Practice Location Reason(s) For Visit Diagnoses Date Provider Providers Copied on Encounter [facility], [address] [place] [address] [address], [place], [place], [id number], tel:[phone] No Information [phone] Euceda OD Maged. [address] , [address], [place], [place], [facility], [place]. tel:[phone] [facility], [address] [place] [address] [address], [place], [place], [id number], tel:[phone] [facility] No Information [address]. [address], [place], [place], [facility], [place]. tel:[phone] Family History Family Member Type Diagnosis Age At Onset No Information Payers Payer name Insurance type Covered libertarian ID Authoriza tiblank(s) [facility] Commercial CI [id number] [facility] CI [id number] [place] [id number] Social History Type Description Quantity Date Captured [...]
--- OUTSIDE RECORDS SUMMARY | 2024-08-23 12:44 | XMS_ITS | Referral Summary ---
Author Organization [address] lto Address [address] [place] [address] Care Team Providers Care Booker Name Role Phone Dary Beltrán NP Primary Care Provider [phone] Encounters Date Type Department Care Team Description 06/25/2024 4:04 AM CDT - 06/25/2024 11:59 PM CDT Hospital Encounter [facility] Emergency, Room [...] on file Legal Sex Female 2:29 AM SHOEBLACK Gender Identity Not on file Sexual Orientation Not on file Last Filed Vital Signs Vital Sign Reading Time Taken Comments Blood Pressure 115/70 04/22/2024 6:15 PM SHOEBLACK Pulse 83 04/22/2024 6:15 PM SHOEBLACK Temperature 36.3 C (97.4 F) 04/22/2024 4:27 PM SHOEBLACK Respiratory Rate 15 04/22/2024 6:15 PM SHOEBLACK Oxygen Saturation 96% 04/22/2024 6:15 PM SHOEBLACK Inhaled Oxygen Concentration - - Weight 95.7 kg (211 lb) 04/22/2024 3:44 PM SHOEBLACK Height 172.7 cm (5' 8) 04/16/2024 4:04 PM SHOEBLACK Body Mass Index 32.08 04/16/2024 4:04 PM SHOEBLACK Plan of Treatment Not on file Insurance [place] [employer] Care Teams Booker Relationship Specialty Start Date End Date Dary Beltrán NP [address] [address] PCP - General Family Medicine 04/16/24
--- OUTSIDE RECORDS SUMMARY | 2024-08-23 12:44 | XMS_ITS | Clinical Summary ---
Author Organization [address] lto Address [address] [place] [address] Care Team Providers Care Supervisor Scrap Preparation Name Role Phone Dary Beltrán NP Primary Care Provider [phone] Allergies Active Allergy Reactions Criticality Noted Date [...] on file Legal Sex Female 2:29 AM V BELT FINISHER Gender Identity Not on file Sexual Orientation Not on file Obstetrics History Para Term AB IAB SAB Ectopic Multiple Livin g Live Births 0 0 0 0 0 0 0 0 0 0 0 Growth Chart Information Age Height Weight Srfaye-axn-dyul th Percentile BMI Percentile Head Circum Head Circum Percentile Date 18 years 95.7 kg (211 lb) 2024 18 years 172.7 cm (5' 8) 95.7 kg (211 lb) 95.35%* 2024 18 years 172.7 cm (5' 8) 105.2 kg (232 lb) 97.10%* 2023 2 years 18.1 kg (40 lb) 2008 * [facility] (Girls, 2-20 Years) Last Filed Vital Signs Vital Sign Reading Time Taken Comments Blood Pressure 115/70 04/22/2024 6:15 PM V BELT FINISHER Pulse 83 04/22/2024 6:15 PM V BELT FINISHER Temperature 36.3 C (97.4 F) 04/22/2024 4:27 PM V BELT FINISHER Respiratory Rate 15 04/22/2024 6:15 PM V BELT FINISHER Oxygen Saturation 96% 04/22/2024 6:15 PM V BELT FINISHER Inhaled Oxygen Concentration - - Weight 95.7 kg (211 lb) 04/22/2024 3:44 PM V BELT FINISHER Height 172.7 cm (5' 8) 04/16/2024 4:04 PM V BELT FINISHER Body Mass Index 32.08 04/16/2024 4:04 PM V BELT FINISHER Plan of Treatment Health Maintenance Due Date Last Done Comments Depression Screening 2004 Hepatitis C Screening 2004 HPV Vaccines (1 - 3-dose series) 10/01/2019 Meningococcal B Vaccine (1 of 2 - Standard) 2020 Regular Well Visit/Exam 18-64 2022 Influenza Vaccine (Season Ended) 2024 12/03/2008, 03/27/2007 DTaP/Tdap/Td Vaccine (7 - Td or Tdap) 12/02/2025 12/03/2015, 10/09/2008, 04/05/2006, Additional history exists Hepatitis B Screening Completed 04/08/2005 , 02/01/2005, 2004, Additional history exists Pneumococcal vaccine <65 Completed 006, 04/08/2005, 02/01/2005, Additional history exists Varicella Vaccines Completed 10/10/2009, 10/01/2005 Meningococcal Vaccine Aged Out 12/03/2015 No gilmar kamran eligible based on patient's age to complete this topic Insurance [place] [employer] Care Teams Supervisor Scrap Preparation Relationship Specialty Start Date End Date Dary Beltrán NP [address] [address] PCP - General Family Medicine 04/16/24
== END 2024-08-23 11:50 | disposition home or self-care (01) ==
LOC: ANHIMG 11:51
PROVIDERS: PCP Nurse Practitioner Family; Visit Provider Obstetrics & Gynecology
DX: N63.11 Unspecified lump in the right breast, upper outer quadrant (principal); N63.21 Unspecified lump in the left breast, upper outer quadrant; R92.8 Other abnormal and inconclusive findings on diagnostic imaging of breast
CPT/HCPCS: 76642

== ENCOUNTER 2024-11-27 13:04 | Outpatient (CLI) | payer OTHER, SELFPAY ==
--- OUTSIDE RECORDS SUMMARY | 2010-01-03 03:30 | XMS_ITS | Continuity of Care Document ---
Author Organization formerly [facility] Address [address] [place] [address] [place] [address] Phone Care Team Providers Care Button Sewer Hand Name Role Phone Euceda OD, Maged Unavailable Unavailable Procedures Procedure Date Eye Exam, New Patient Refraction Eye Exam, New Patient Refraction Advance Directives Directive Yes / No Effective Date File Name No Information Encounters Encounter Description Practice Location Reason(s) For Visit Diagnoses Date Provider Providers Copied on Encounter [facility], [address] [place] [address] [address], [place], [place], [id number], tel:[phone] [facility] [place] No Information 6-201 0 Euceda OD Maged. [address] , [address], [place], [place], [facility], [place]. tel:[phone] [facility], [address] [place] [address] [address], [place], [place], [id number], tel:[phone] [facility] [place] No Information [address] Brittany. [address], [place], [place], [facility], [place]. tel:[phone] Family History Family Member Type Diagnosis Age At Onset No Information Payers Payer name Insurance type Covered green party ID Authoriza tiblank(s) [facility] Commercial CI [id number] [facility] CI [id number] [place] [id number] Social History Type Description Quantity Date Captured Comments Sex Female Smoking Status No Information Chief Complaint And Reason For Visit No Information Reason For Referral Reason For Referral No Information History Of Present Illness Encounter Date Complaint History Of Prese nt Illness No Information Functional Status Date Functional Assessmen t No Information Instructions Date Instruction Additional Infor mation No Information Assessments Type Assessment Date No Information Patient Care Teams Name Effective Dates (start - stop) Status Members No Information
--- NOTE | ~2024-11-27 | US_ITS ---
EXAMINATION: US breast BI limited INDICATION: 19-year old female; evaluate palpable left breast lump felt by the patient. In addition, follow-up on probably benign masses in both breasts. COMPARISON: 08/23/2024 TECHNIQUE: Targeted sonographic evaluation of the probably benign masses in both breast was completed. FINDINGS: A 0.7 x 0.5 x 0.4 cm circumscribed hypoechoic mass at 3:00 location 3 cm from the nipple in the LEFT breast correlates to a palpable lump identified by the patient. There is no sonographic abnormality seen at 6:00, 5 cm from the nipple which is another area where the patient felt a lump. A 0.8 x 1.1 x 0.5 cm circumscribed hypoechoic mass at 9:00 location 5 cm from the nipple in the RIGHT breast reidentified has not significantly changed. A 1.4 x 1.4 x 0.6 cm hypoechoic mass at 12:00 location 2 cm from the nipple in the LEFT breast reidentified is unchanged. IMPRESSION: Probably benign left breast mass, most likely fibroadenoma correlates to area of tender lump. Probably benign bilateral breast masses have not significantly changed. RECOMMENDATION: Continue imaging surveillance with bilateral breast ultrasound in 6 months. Clinical management of patient's palpable lump. BI-RADS 3, PROBABLY BENIGN Reviewed, dictated and finalized at location B. IMPRESSION: Probably benign left breast mass, most likely fibroadenoma correlates to area o f tender lump. Probably benign bilateral breast masses have not significantly changed. RECOMMENDATION: Continue imaging surveillance with bilateral breast ultrasound in 6 months. Clinical management of patient's palpable lump. BI-RADS 3, PROBABLY BENIGN
--- OUTSIDE RECORDS SUMMARY | 2024-11-27 14:39 | XMS_ITS | Clinical Summary ---
Author Organization [facility] [employer] Address [address] [place] [address] Care Team Providers Care Garment Manufacturing Supervisor Name Role Phone Paz Calvert APRN-BACON SLICER Primary Care Provider Jan Hernandez MD Unavailable Source Comments [facility],non-owned Affiliates and Associated Physician Practices is amultiple site organization consisting of ambulatory clinics and hospital sitesin [place], [place], [place] and [place]. This disclosure is being madepursuant to the Care Everywhere program and may not contain all information available regarding this patient. Last updated 17.[facility] Allergies Active Allergy Reactions Criticality Noted [...] 05/12/2019 Assessment & Plan (05/12/2019 9:25 AM SENIOR UX DESIGNER): Dheeraj had a positive comprehensive drug screen for methamphetamines. Unlikely to be false positive. Plan: - will obtain further history and discuss with Dheeraj Intentional drug overdose 05/11/2019 Assessment & Plan (05/12/2019 9:06 AM SENIOR UX DESIGNER): Dheeraj Berry is a 13 yo female [...] cleared Assessment & Plan (05/11/2019 4:41 PM SENIOR UX DESIGNER): Dheeraj Berry is a 13 yo female [...] on file Legal Sex Female 5:44 AM SENIOR UX DESIGNER Gender Identity Not on file Sexual Orientation Not on file Last Filed Vital Signs Vital Sign Reading Time Taken Comments Blood Pressure 110/68 05/27/2020 10:46 AM SENIOR UX DESIGNER Pulse 112 05/27/2020 10:46 AM SENIOR UX DESIGNER Temperature 36.6 C (97.9 F) 05/27/2020 10:46 AM SENIOR UX DESIGNER Respiratory Rate 20 05/27/2020 10:46 AM SENIOR UX DESIGNER Oxygen Saturation 97% 05/27/2020 10:46 AM SENIOR UX DESIGNER Inhaled Oxygen Concentration - - Weight 86.2 kg (190 lb 0.6 oz) 05/27/2020 10:46 AM SENIOR UX DESIGNER Height 171.2 cm (5' 7.4) 05/27/2020 10:46 AM CS T Body Mass Index 29.41 05/27/2020 10:46 AM SENIOR UX DESIGNER Plan of Treatment Health Maintenance Due Date Last Done Comments HIV SCREENING 10/01/2019 HPV VACCINE (1 - 3-dose series) 10/01/2019 CHLAMYDIA/GONORRHEA SCREENING 2020 MENINGOCOCCAL (Group B) VACC INE SHARED DECISION-MAKING (1 of 2 - Standard) 2020 HEPATITIS C SCREENING 09/26/2022 DTAP/TDAP/TD VACCINES (1 - Tdap) 10/01/2023 HEPATITIS B VACCINE (1 of 3 - 19+ 3-dose series) 10/01/2023 DEPRESSION SCREENING 03/21/2024 COVID-19 VACCINE (1 - 2023-2 5 season) 2024 INFLUENZA VACCINE (#1) 2024 ZOSTER VACCINE (1 of 2) 2054 [...] on file Relation to Subscriber:Not on file Name:KRISTIDHEERAJ Olson Subscriber ID:Not on file (Home) Address: [address] [place] [phone] Payer ID:Not on file Group ID:Not on file Type:Self Pay Address: [place], [place] [employer] [facility] [place] [employer] [facility] Advance Directives * Full Code (Latest Code Status on File) Date Activated Date Inactivated Comments 05/11/2019 3:39 PM 05/12/2019 11:20 PM Care Teams Garment Manufacturing Supervisor Relationship Specialty Start Date End Date Paz Calvert, INSIDE SALES LEAD-BACON SLICER [address] [place] [address] PCP - General Nurse Practitioner Family 12/04/18 Jan Hernandez MD [address] [place] [phone] Orthopedic Surgery 12/15/18
--- OUTSIDE RECORDS SUMMARY | 2024-11-27 14:39 | XMS_ITS | Clinical Summary ---
Author Organization [address] lto Address [address] [address] Care Team Providers Care Bone Char Kiln Tender Name Role Phone Dary Beltrán NP Primary Care Provider +1- [phone] Allergies Active Allergy Reactions Criticality Noted Date Comments Amitriptyline Other (See comments) Low 05/27/2020 Per mother Medications albuterol HFA (PROVENTIL HFA,VENTOLIN HFA,PROAIR HFA) 90 mcg/actuation inhalerIndications :Upper respiratory tract infection, unspecified type Inhale 2 puffs every 6 (six) hours as needed for wheezing 3 each 4 11/25/19 24 Active ondansetron ODT (ZOFRAN-ODT) 4 mg disintegrating tabletIndications: Nausea Take 1 tablet (4 mg total) by mouth every 8 (eight) hours as needed for nausea 12 tablet 11/25/19 24 Active ondansetron (ZOFRAN) 4 mg tablet Take 1 tablet (4 mg total) by mouth every 6 (six) hours 12 tablet 04/16/19 25 Active dicyclomine (BENTYL) 20 mg tablet Take 1 tablet (20 mg total) by mouth 2 (two) times a day 20 tablet 04/16/19 25 026 Active ondansetron (ZOFRAN) 4 mg tabletIndications: Acute Gastroenteritis-re lated Vomiting in Pediatrics Take 1 tablet (4 mg total) by mouth every 6 (six) hours 24 tablet 11/13/19 25 Active amoxicillin-clavul anate (AUGMENTIN) 875-125 mg per tabletIndications: Abdominal/Pelvic Infection Take 1 tablet by mouth every 12 (twelve) hours for 10 days 20 tablet 11/13/19 25 025 Discontinu ed(Leslie nair order) amoxicillin-clavul anate (AUGMENTIN) 875-125 mg per tabletIndications: Abdominal/Pelvic Infection Take 1 tablet by mouth every 12 (twelve) hours for 10 days 20 tablet 11/13/19 025 Active Problems No known active problems Encounters Date Type Department Care Team Description 11/12/2024 10:23 AM CDT - 11/12/2024 1:50 PM CDT Emergency [facility] Emergency Department [address] [place] [address] Colitis (Primary Dx) Discharge Disposition: Discharge to home or self care from Last 3 Months Social History Tobacco Use Types Packs/Day Years Used Date Smoking Tobacco: Never Smokeless Tobacco: Never Personal Safety Answer Date Recorded Have you ever been in or are you currently in a harmful physical or emotional relationship or is someone making you feel afraid or unsafe? 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 Gender Identity Not on file Sexual Orientation Not on file Obstetrics History Para Term AB IAB SAB Ectopic Multiple Livin g Live Births 0 0 0 0 0 0 0 0 0 0 0 Last Filed Vital Signs Vital Sign Reading Time Taken Comments Blood Pressure 130/79 11/12/2024 10:15 AM CDT Pulse 92 11/12/2024 10:15 AM CDT Temperature 36.7 C (98.1 F) 11/12/2024 10:13 AM CDT Respiratory Rate 18 11/12/2024 10:15 AM CDT Oxygen Saturation 99% 11/12/2024 10:15 AM CDT Inhaled Oxygen Concentration - - Weight 83.9 kg (185 lb) 11/12/2024 10:15 AM CDT Height 172.7 cm (5' 8) 11/12/2024 10:15 AM CDT Body Mass Index 28.13 11/12/2024 10:15 AM CDT Plan of Treatment Health Maintenance Due Date Last Done Comments Depression Screening 2004 Hepatitis C Screening 2004 HPV Vaccines (1 - 3-dose series) 10/01/2019 Meningococcal B Vaccine (1 of 2 - Standard) 2020 Regular Well Visit/Exam 18-64 2022 Influenza Vaccine (#1) 2024 0, 12/03/2008, 03/27/2007 DTaP/Tdap/Td Vaccine (8 - Td or Tdap) 08/29/2030 08/29/2020, 12/03/2015, 10/09/2008, Additional history exists Hepatitis B Screening Completed 04/08/2005 , 02/01/2005, 2004, Additional history exists Pneumococcal vaccine <65 Completed 006, 04/08/2005, 02/01/2005, Additional history exists Varicella Vaccines Completed 10/10/2009, 10/01/2005 Meningococcal Vaccine Aged Out 12/03/2015 No gilmar kamran eligible based on patient's age to complete this topic Procedures Procedure Name Priority Date/Time Associated Diagnosis Comments CT ABDOMEN PELVIS W CONTRAST ED 11/12/2024 11:46 AM CDT POCT HCG, URINE Routine 11/12/2024 11:03 AM CDT URINALYSIS AND REFLEX TO MICROSCOPIC AND CULTURE STAT 11/12/2024 11:00 AM CDT EGFR STAT 11/12/2024 10:20 AM CDT DIFFERENTIAL AUTO STAT 11/12/2024 10: 20 AM CDT LIPASE STAT 11/12/2024 10:20 AM CDT COMPREHENSIVE METABOLIC PANEL STAT 11/12/2024 10:20 AM CDT CBC WITH AUTO DIFFERENTIAL STAT 11/12/2024 10:20 AM CDT from Last 3 Months Results * CT Abdomen Pelvis W Contrast (11/12/2024 11:46 AM CDT) Anatomical Region Laterality Modality Body N/A Computed Tomogra phy 11/12/2024 1:15 PM CDT Narrative 11/12/2024 1:26 PM CDT EXAM DESCRIPTION: CT ABDOMEN PELVIS W CONTRAST REASON FOR STUDY: RLQ abdominal pain, LUQ pain Nausea, LUQ pain, vomiting, loss of appetite and diarrhea x 10 [address]. TECHNIQUE: CT scan of the abdomen and pelvis performed with intravenous and without oral contrast using helical scanning technique with dynamic intravenous contrast injection. Reconstructed coronal and sagittal MPR images reviewed. All images stored on PACS. Automated exposure control was used as a dose optimization technique for this examination. CONTRAST TYPE/DOSE: 75mL of IOVERSOL 350 MG IODINE/ML INTRAVENOUS SYRINGE injected via intravenous COMPARISON: CT abdomen pelvis 04/16/2024 FINDINGS: LOWER CHEST: No significant pulmonary abnormalities. No effusion. LIVER: Normal size. No identified cystic or solid masses. GALLBLADDER: No stones identified. No wall thickening or inflammatory changes. BILE DUCTS: No intrahepatic or extrahepatic ductal dilatation. SPLEEN: Normal size. No focal lesions. PANCREAS: No identified cystic or solid masses. No significant calcifications. No adjacent inflammation or peripancreatic fluid collections. Pancreatic duct not dilated. ADRENALS: Normal. KIDNEYS/URINARY TRACT: No identified significant cystic or solid masses. No visualized stones. No hydronephrosis or hydroureter. Symmetric enhancement. Urinary bladder is unremarkable. GI: No dilated loops of bowel appreciated. There is colonic wall thickening versus underdistention in the transverse, descending, and sigmoid segments. There is no definite sign of appendicitis as the appendix is not appear dilated and contains a tiny bubble of gas. PERITONEUM: No ascites or free air. RETROPERITONEUM: No mass or adenopathy. REPRODUCTIVE: An intrauterine device is present. VASCULATURE: No abdominal aortic aneurysm. MUSCULOSKELETAL: No significant abnormality. OTHER: No other abnormality. IMPRESSION: Colonic wall thickening versus underdistention in the transverse, descending, and sigmoid segments. This could represent colitis in the appropriate clinical setting. No definite sign of appendicitis as the appendix is not appear dilated and contains a tiny bubble of gas. THIS IS AN ELECTRONICALLY VERIFIED FINAL REPORT 11/12/2024 1:26 PM - Electronically signed by Ayden Mims M.D. AM: AM Report ID: [id number] Reading Location: [id number] Procedure Note Ayden Mims MD - 11/12/2024 EXAM DESCRIPTION: CT ABDOMEN PELVIS W CONTRAST REASON FOR STUDY: RLQ abdominal pain, LUQ pain Nausea, LUQ pain, vomiting, loss of appetite and diarrhea x 10 days. TECHNIQUE: CT scan of the abdomen and pelvis performed with intravenousand without oral contrast using helical scanning technique with dynamic intravenous contrast injection. Reconstructed coronal and sagittal MPRimages reviewed. All images stored on PACS. Automated exposure control was usedas a dose optimization technique for this examination. CONTRAST TYPE/DOSE: 75mL of IOVERSOL 350 MG IODINE/ML INTRAVENOUSSYRINGE injected via intravenous COMPARISON: CT abdomen pelvis 04/16/2024 FINDINGS: LOWER CHEST: No significant pulmonary abnormalities. No effusion. LIVER: Normal size. No identified cystic or solid masses. GALLBLADDER: No stones identified. No wall thickening or inflammatory changes. BILE DUCTS: No intrahepatic or extrahepatic ductal dilatation. SPLEEN: Normal size. No focal lesions. PANCREAS: No identified cystic or solid masses. No significant calcifications. No adjacent inflammation or peripancreatic fluidcollections. Pancreatic duct not dilated. ADRENALS: Normal. KIDNEYS/URINARY TRACT: No identified significant cystic or solid masses.No visualized stones. No hydronephrosis or hydroureter. Symmetricenhancement. Urinary bladder is unremarkable. GI: No dilated loops of bowel appreciated. There is colonic wallthickening versus underdistention in the transverse, descending, and sigmoidsegments. There is no definite sign of appendicitis as the appendix is not appear dilated and contains a tiny bubble of gas. PERITONEUM: No ascites or free air. RETROPERITONEUM: No mass or adenopathy. REPRODUCTIVE: An intrauterine device is present. VASCULATURE: No abdominal aortic aneurysm. MUSCULOSKELETAL: No significant abnormality. OTHER: No other abnormality. IMPRESSION: Colonic wall thickening versus underdistention in the transverse,descending, and sigmoid segments. This could represent colitis in the appropriateclinical setting. No definite sign of appendicitis as the appendix is not appear dilated and contains a tiny bubble of gas. THIS IS AN ELECTRONICALLY VERIFIED FINAL REPORT 11/12/2024 1:26 PM - Electronically signed by Ayden Mims M.D. AM: AM Report ID: [id number] Reading Location: [id number] Binta Jackson ADVERTISING STATISTICAL CLERK IMG CT PROCEDURES Final Resul t * POCT hCG, urine (11/12/2024 11:03 AM CDT) HCG, ur, POC Negative Negative Lot Number [id number] QC Backgroud Clear Acceptable QC Control Line Acceptable Urine 11/12/2024 11:0 3 AM CDT Damaris Bernabe MD POINT OF CARE TEST ORDERABLES Final Result * (ABNORMAL) Urinalysis reflex to microscopic and culture Urine (11/12/2024 11:00 AM CDT) Color, ur Straw Yellow Clarity, ur Clear Clear [facility] ([facility]) Specific gravity, ur 1.006 1.003 - 1.030 [facility] ([facility]) pH, urine 7.0 [facility] ([facility]) Comment: Interpretive Data U rine pH is affected by diet, medications, systemic acid-base disturbances, and renal tubular function. pH may affect urinary stone formation. For example, urine pH below 6.0 may help reduce the tendency for calcium phosphate stones and pH greater than 6.0 may reduce the tendency for uric acid stone formation. Source: [facility] [employer] Current Interpretive Data was last revised on 2017 Protein, ur ql Negative Negative [facility] ([facility]) Glucose, ur ql Negative Negative [facility] ([facility]) Ketones, ur 2+(A) Negative [facility] ([facility]) Bilirubin, ur Negative Negative [facility] ([facility]) Blood, ur Negative Negative [facility] ([facility]) Urobilinogen, ur <2.0 <2.0 mg/dL [facility] ([facility]) Nitrite, ur Negative Negative [facility] ([facility]) Leukocyte esterase, ur Negative Negative [facility] ([facility]) UA reflex comment Reflex conditions for microscopic UA and culture not met. [facility] ([facility]) Urine 11/12/2024 11:0 0 AM CDT 11/12/2024 11:06 AM CDT Damaris Bernabe MD LAB MICROBIOLOGY - GENERAL ORDERABLES Final Result [facility] ([facility]) 1 [facility] Department [place] [address] * eGFR (11/12/2024 10:20 AM CDT) eGFR >90 >=60 mL/min/1. 73 m2 Comment: [...] interpretive data was last reviewed 2021. Blood 11/12/2024 10:2 0 AM CDT 11/12/2024 10:22 AM CDT Damaris Bernabe MD LAB BLOOD ORDERABLE S Final Result [facility] 1 [facility] [place] [address] * Differential, auto (11/12/2024 10:20 AM CDT) Neutrophil abs 5.33 1.50 - 6.50 K/cumm Imm gran abs 0.02 0.00 - 0.10 K/cumm [facility] ([facility]) Lymphocyte abs 2.89 0.80 - 3.30 K/cumm [facility] ([facility]) Monocyte abs 0.36 0.20 - 0.80 K/cumm [facility] ([facility]) Eosinophil abs 0.06 0.00 - 0.50 K/cumm [facility] ([facility]) Basophil abs 0.03 0.00 - 0.10 K/cumm [facility] ([facility]) Neutrophil pct 61.4 % [facility] ([facility]) Comment: Interpretive Data Percent cell count reference ranges are not reported, since discordance with absolute values may lead to misinterpretation of CBC data. Current Interpretive Data was last revised on 2017. Imm gran pct 0.2 % [facility] ([facility]) Comment: Interpretive Data Percent cell count reference ranges are not reported, since discordance with absolute values may lead to misinterpretation of CBC data. Current Interpretive Data was last revised on 2017. Lymphocyte pct 33.3 % [facility] ([facility]) Comment: Interpretive Data Percent cell count reference ranges are not reported, since discordance with absolute values may lead to misinterpretation of CBC data. Current Interpretive Data was last revised on 2017. Monocyte pct 4.1 % [facility] ([facility]) Comment: Interpretive Data Percent cell count reference ranges are not reported, since discordance with absolute values may lead to misinterpretation of CBC data. Current Interpretive Data was last revised on 2017. Eosinophil pct 0.7 % [facility] ([facility]) Comment: Interpretive [...] Data was last revised on 2017. Blood 11/12/2024 10:2 0 AM CDT 11/12/2024 10:22 AM CDT Damaris Bernabe MD LAB BLOOD ORDERABLE S Final Result [facility] ([facility] 1 [facility] [place] [address] * CBC with auto differential (11/12/2024 10:20 AM CDT) WBC 8.69 3.80 - 9.90 K/cumm Hgb 14.7 11.9 - 15.5 g/dL [facility] ([facility]) Hct 42.8 35.6 - 45.5 % [facility] ([facility]) Plt 173 150 - 400 K/cumm [facility] ([facility]) MPV 10.7 9.1 - 12.3 fL [facility] ([facility]) RBC 4.90 3.90 - 5.20 M/cumm [facility] ([facility]) MCV 87.3 81.3 - 96.4 fL [facility] ([facility]) MCH 30.0 27.1 - 33.3 pg [facility] ([facility]) MCHC 34.3 32.3 - 35.7 g/dL [facility] ([facility]) RDW CV 12.1 11.1 - 14.9 % [facility] ([facility]) RDW SD 39.0 35.7 - 48.1 fL [facility] ([facility]) NRBC abs 0.00 0.00 - 0.01 K/cumm [facility] ([facility]) Blood Venous blood specimen / Unknown 11/12/2024 10:20 AM CDT 11/12/2024 10:22 AM CDT Damaris Bernabe MD LAB BLOOD ORDERABLE S Final Result [facility] ([facility]) 1 [facility] [place] [address] * Lipase (11/12/2024 10:20 AM CDT) Lipase 23 10 - 99 Units/L [facility] ([facility]) Blood Venous blood specimen / Unknown 11/12/2024 10:20 AM CDT 11/12/2024 10:22 AM CDT us Damaris Bernabe MD LAB BLOOD ORDERABLE S Final Result [facility] ([facility]) 1 [facility] Department [place] [address] * Comprehensive metabolic panel (11/12/2024 10:20 AM CDT) Sodium 138 135 - 145 mmol/L [facility] ([facility]) Potassium, pl 3.7 3.3 - 4.9 mmol/L [facility]) Chloride 103 97 - 110 mmol/L [facility]) CO2 22 22 - 32 mmol/L [facility] ([facility]) Anion gap 13 2 - 15 mmol/L [facility] ([facility]) BUN 8 6 - 25 mg/dL [facility] ([facility]) Creatinine 0.64 0.60 - 1.10 mg/dL [facility] ([facility]) Glucose 95 70 - 199 mg/dL [facility] ([facility]) [...] interpretive data was last revised 2022. Calcium 9.8 8.5 - 10.3 mg/dL [facility] ([facility]) Bilirubin, total 0.5 0.1 - 1.2 mg/dL [facility] ([facility]) Protein, pl 7.3 6.5 - 8.5 g/dL [facility] ([facility]) Albumin 4.5 3.5 - 5.0 g/dL [facility] ([facility]) Alk phos 83 40 - 130 Units/L [facility] ([facility]) ALT 16 7 - 45 Units/L [facility] ([facility]) AST 20 10 - 45 Units/L [facility] ([facility]) Blood 11/12/2024 10:2 0 AM CDT 11/12/2024 10:22 AM CDT us Damaris Bernabe MD LAB BLOOD ORDERABLE S Final Result [facility] ([facility] 1 [facility] Department [place] [address] from Last 3 Months Insurance [place] [employer] Care Teams Bone Char Kiln Tender Relationship Specialty Start Date End Date Dary Beltrán NP [address] [place], [place] [id number] PCP - General Family Medicine 04/16/24
== END 2024-11-27 13:05 | disposition home or self-care (01) ==
LOC: ANHFOHIMG 13:10
PROVIDERS: PCP Nurse Practitioner Family; Visit Provider Obstetrics & Gynecology
DX: N63.10 Unspecified lump in the right breast, unspecified quadrant (principal); N63.20 Unspecified lump in the left breast, unspecified quadrant; R92.8 Other abnormal and inconclusive findings on diagnostic imaging of breast
CPT/HCPCS: 76642

== ENCOUNTER 2025-02-22 15:05 | Emergency (ER) | payer OTHER, SELFPAY ==
[2025-02-22 15:11] VITALS: BP 139/78; PULSE 105; RESP 16; TEMP 36.9; O2SAT 100
--- NOTE | 2025-02-22 16:59 | PC.NURSE ---
pt left without being seen by provider
--- OUTSIDE RECORDS SUMMARY | 2025-02-22 17:13 | XMS_ITS | Clinical Summary ---
Author Organization [address] lto Address [address] [place] [address] Care Team Providers Care Him Coder Name Role Phone Dary Beltrán NP Primary Care Provider [phone]- [phone] Allergies Active Allergy Reactions Criticality Noted Date Comments Amitriptyline Other (See comments) Low 05/27/2020 Per mother Medications albuterol HFA (PROVENTIL HFA,VENTOLIN HFA,PROAIR HFA) 90 mcg/actuation inhalerIndications: Upper respiratory tract infection, unspecified type Inhale 2 puffs every 6 (six) hours as needed for wheezing 3 each 4 4 Active ondansetron ODT (ZOFRAN-ODT) 4 mg disintegrating [...] day 20 tablet 5 04/16/19 26 Active ondansetron (ZOFRAN) 4 mg tabletIndications:A cute Gastroenteritis-rel ated Vomiting in Pediatrics Take 1 tablet (4 mg total) by mouth every 6 (six) hours 24 tablet 08/25/202 5 Active Active Problems No known active problems [...] on file 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
== END 2025-02-22 17:12 | disposition left against medical advice (07) ==
LOC: ANHED 17:11
PROVIDERS: PCP Nurse Practitioner Family
DX: R20.0 Anesthesia of skin (principal)
CPT/HCPCS: 99199

== ENCOUNTER 2025-03-20 11:18 | Outpatient (CLI) | payer OTHER, SELFPAY ==
--- OUTSIDE RECORDS SUMMARY | 2025-03-20 11:36 | XMS_ITS | Clinical Summary ---
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
[2025-03-20 18:51] LABS: Beta HCG Quantitative < 2.39 mIU/ML
== END 2025-03-20 11:19 | disposition home or self-care (01) ==
LOC: ANHGOSHLAB 11:19
PROVIDERS: PCP Nurse Practitioner Family; Visit Provider Student in an Organized Health Care Education/Training Program
DX: N91.2 Amenorrhea, unspecified (principal)
CPT/HCPCS: 36415; 84702